=== PATIENT | female | born 1940 | race Caucasian/White ===

== ENCOUNTER → 2019-11-04 10:21 | Outpatient (CLI) | payer OTHER, MEDICARE, SELFPAY ==
--- NOTE | ~2019-11-04 | MM_ITS ---
EXAMINATION: MM screening jones BI w catie HISTORY: Screening mammogram TECHNIQUE: Craniocaudal and mediolateral oblique 3-D tomosynthesis images were obtained and synthetic 2-D images were generated. CAD analysis was submitted and interpreted. COMPARISON: 02/05/2018, 12/05/2016, 10/05/2015 bilateral digital screening mammogram examination BREAST PARENCHYMAL COMPOSITION: The breasts are heterogeneously dense, which may obscure small masses . FINDINGS: Scattered bilateral benign calcifications. There is no evidence of suspicious mass, calcifi cation, or architectural distortion to suggest malignancy in either breast. There has been no suspici ous interval change. IMPRESSION: 1. No mammographic evidence of malignancy. 2. Recommend routine screening mammography in one year. BI-RADS Category 2: Benign finding(s). Reviewed, dictated and finalized at location D.
--- NOTE | ~2019-11-04 | DEXA_ITS ---
Bone Density Report Name: Nydia Goldman Age: 79 Sex: Female Ethnicity: White Date of : 1940 Indication: postmenopausal; screening for osteoporosis; height loss; hysterectomy; Referring Provider: ELIZABETHCRISTOBAL Study: Bone densitometry was performed. Exam Date: November 04, 2019 Accession number: [id number] Bone Density: Region BMD T-score Z-score Classification AP Spine (L1-L4) 1.117 0.6 3.2 Normal Femoral Neck (Left) 0.944 0.9 3.1 Normal Total Hip (Left) 1.045 0.8 2.8 Normal Femoral Neck (Right) 0.905 0.5 2.7 Normal Total Hip (Right) 1.077 1.1 3.1 Normal Total Hip Mean 1.061 1.0 3.0 Normal World Health Organization criteria for BMD impression classify patients as: Normal (T-score at or above -1.0), Osteopenia (T-score between -1.0 and -2.5), or Osteoporosis (T-score at or below -2.5). 10-year Fracture Risk: FRAX not reported because: All T-scores for Spine Total, Hip Total, Femoral Neck at or above -1.0 Previous Exams: Region Exam Age BMD T-score BMD Change BMD Change Date g/cm2 vs Baseline vs Previous AP Spine(L1-L4) 11/04/2019 79 1.117 0.6 -0.016 -0.068* 06/17/2014 73 1.185 1.3 0.052* 0.052* 12/26/2005 65 1.133 0.8 Total Hip(Left) 11/04/2019 79 1.045 0.8 -0.165* -0.102* 06/17/2014 73 1.147 1.7 -0.063* -0.063* 12/26/2005 65 1.210 2.2 Total Hip(Right) 11/04/2019 79 1.077 1.1 -0.147* -0.104* 06/17/2014 73 1.182 2.0 -0.043* -0.043* 12/26/2005 65 1.224 2.3 *Denotes significance at 95% confidence level, LSC for AP Spine = 0.022 g/cm2, LSC for Total Hip = 0.027 g/cm2 Clinical Information Provided by Patient: Has used the following medications: Vitamin D Has the following medical conditions: Hysterectomy Patient maximum height was 65.5 Menopause Age: 43 No regular weight bearing exercise Drinks caffeinated beverages Onset of menses at age 12 Number of children 2 Impression: The patient has normal bone mass. The BMD for the AP Spine(L1-L4) decreased, changing by -0.068 since the last DXA exam. The BMD for the Total Hip(Left) decreased, changing by -0.102 since the last DXA exam. The BMD for the Total Hip(Right) decreased, changing by -0.104 since the last DXA exam. Discussion: LOW RISK OF FRACTURE; BONE DENSITY IS WELL ABOVE THE MINIMUM DESIRABLE LEVEL AND ABOVE AVERAGE FOR AGE AN
== END ==
PROVIDERS: PCP Physician Assistant; Visit Provider Physician Assistant
DX: Z12.31 Encounter for screening mammogram for malignant neoplasm of breast (principal); Z78.0 Asymptomatic menopausal state
CPT/HCPCS: 77063; 77067; 77080

== ENCOUNTER → 2020-11-09 10:26 | Outpatient (CLI) | payer OTHER, MEDICARE, SELFPAY ==
--- NOTE | ~2020-11-09 | MM_ITS ---
EXAMINATION: MM screening jones BI w catie HISTORY: Screening TECHNIQUE: Craniocaudal and mediolateral oblique 3-D tomosynthesis images were obtained and synthetic 2-D images were generated. CAD analysis was submitted and interpreted. COMPARISON: Comparison to multiple prior studies sequentially, with oldest reviewed study dated 08/2014. BREAST PARENCHYMAL COMPOSITION: The breasts are heterogenously dense, which may obscure small masses FINDINGS: There is no evidence of suspicious mass, calcification, or architectural distortion to sugg est malignancy in either breast. There has been no suspicious interval change. IMPRESSION: 1. No mammographic evidence of malignancy. 2. Recommend routine screening mammography in one year. BI-RADS Category 1: Negative Reviewed, dictated and finalized at location A.
== END ==
PROVIDERS: PCP Physician Assistant; Visit Provider Physician Assistant
DX: Z12.31 Encounter for screening mammogram for malignant neoplasm of breast (principal)
CPT/HCPCS: 77063; 77067

== ENCOUNTER → 2021-04-26 14:10 | Outpatient (CLI) | payer OTHER, MEDICARE, SELFPAY ==
--- NOTE | ~2021-04-26 | CT_ITS ---
EXAMINATION: CT abdomen pelvis wo/w con DATE: 04/26/2021 15:07 INDICATION: Gross hematuria TECHNIQUE: Computed tomography (CT) of the abdomen and pelvis was performed without and subsequently with 130 CC Omnipaque 350 intravenous contrast. Automated exposure control and iterative reconstructi on technique were employed. Exam dose: 2034.14 mGy-cm total exam DLP. COMPARISON: 06/22/2016 CT abdomen pelvis FINDINGS: The lung bases are clear of consolidation. Normal heart size. No pericardial or pleural eff usion. Small sliding hiatal hernia. Mild scarring and volume loss of the right kidney. No right renal mass lesion. 11 mm and 20 mm left renal cyst. 6 mm inferior tip left renal probable hy perdense cyst. No intraluminal filling defect of the renal collecting systems or ureters or urinary bladder is evide nt. No hydroureteronephrosis. Moderate diffuse thickening of the urinary bladder wall; the urinary bl adder appears unremarkable. Status post hysterectomy. Soft tissue prominence at the anorectal area, stable in appearance compared to 06/22/2016; recommend c linical correlation to exclude anorectal mass lesion. Normal appendix. Normal caliber of the abdominal aorta. No intraperitoneal or retroperitoneal or pelvic mass lesion or adenopathy or ascites is noted otherwise. No suspicious osteolytic or osteoblastic lesions. Degenerative changes of the thoracic and lumbar spine, including grade 1 anterolisthesis and moderate ly prominent degenerative disc disease L4-5, moderate degenerative disc disease at the remainder of t he lumbar spine. Diffuse idiopathic skeletal hyperostosis of the thoracic spine. 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 Reviewed, dictated and finalized at location A.
--- NOTE | ~2021-04-26 | XR_ITS ---
XR abdomen/kub 1V 04/26/2021 15:07 Indication: Gross hematuria Procedure: KUB Comparison: 06/28/2016 Findings: Bowel gas pattern is nonobstructive. Moderate colonic fecal loading. No renal stones are id entified. Lung bases unremarkable. Severe lumbar spondylosis with levoscoliosis. 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 Impression: 1: No acute abnormality. Reviewed, dictated and finalized at location B. Impression: 1: No acute abnormality.
[2021-04-26 14:38] LABS: Estimated Glomerular Filt Rate > 60
== END ==
PROVIDERS: PCP Internal Medicine; Visit Provider Nurse Practitioner Adult Health
DX: R31.0 Gross hematuria (principal); N28.1 Cyst of kidney, acquired; K44.9 Diaphragmatic hernia without obstruction or gangrene
CPT/HCPCS: 74018; 74178; Q9967

== ENCOUNTER → 2021-11-15 10:11 | Outpatient (CLI) | payer OTHER, MEDICARE, SELFPAY ==
--- NOTE | ~2021-11-15 | MM_ITS ---
EXAMINATION: MM screening jones BI w catie HISTORY: Screening mammogram TECHNIQUE: Craniocaudal and mediolateral oblique 3-D tomosynthesis images were obtained and synthetic 2-D images were generated. CAD analysis was submitted and interpreted. COMPARISON: 11/09/2020, 11/04/2019, 02/05/2018 BREAST PARENCHYMAL COMPOSITION: The breasts are heterogeneously dense, which may obscure small masses . FINDINGS: Scattered benign-appearing calcifications are present. No suspicious mass, calcification, o r architectural distortion are identified in either breast to suggest malignancy. There has been no s uspicious interval change. IMPRESSION: 1. No mammographic evidence of malignancy. 2. Recommend routine screening mammography in one year. BI-RADS Category 2: Benign finding(s). Reviewed, dictated and finalized at location A.
== END ==
PROVIDERS: PCP Physician Assistant; Visit Provider Physician Assistant
DX: Z12.31 Encounter for screening mammogram for malignant neoplasm of breast (principal)
CPT/HCPCS: 77063; 77067

== ENCOUNTER 2022-03-10 18:26 | Emergency (ER) | payer OTHER, MEDICARE, SELFPAY ==
[2022-03-10 18:31] VITALS: BP 198/85; PULSE 74; RESP 20; TEMP 36.3; O2SAT 99
[2022-03-10 19:28] LABS: Add Urine Microscopic? YES; Appearance Urine Turbid (Clear); Bilirubin Urine Negative (Negative); Blood Urine 3+ (Negative); Color Urine Red (Yellow); Glucose Urine UA Negative (Negative); Ketones Urine Negative (Negative); Leukocyte Esterase Ur 1+ LEU/UL (Negative); Nitrate Urine Positive (Negative); Protein Urine 2+ mg/dL (Negative); Specific Grav Ur 1.015 (1.001-1.035); Urobilinogen Urine 0.2 mg/dL (<2.0)
[2022-03-10 19:31] LABS: RBC Urine >75 /hpf (0-2)
[2022-03-10 19:32] LABS: Squamous Epithelial Cell Urine Few /hpf (Few)
[2022-03-10 19:33] LABS: Bacteria Urine 2+ /hpf
--- NOTE | 2022-03-10 19:38 | ED.GENADULT ---
HPI - General Adult General Chief complaint: Urogenital-Female Stated complaint: UTI MEDS NOT WORKING Time Seen by Provider: 03/10/22 19:08 History of Present Illness HPI narrative: This is an 81-year-old female with neurogenic bladder presenting to ED with UTI symptoms. The patient was diagnosed with the UTI on February 17. She was prescribed Levaquin but was not comfortable taking the medication due to side effects. She was then prescribed Macrobid which she just finished her course today. However the patient self caths due to a neurogenic bladder. She has noticed that she has had bright red blood and passage of clots today. She was able to void on her own and does not have any abdominal pain or pressure at this time. She denies systemic signs of infection such as fever chills nausea vomiting or diarrhea. The patient's urologist is Dr. Nugent. Patient takes Keflex prophylactically. Related Data Allergies Allergy/AdvReac Type Severity Reaction Status Date / Time hydrocodone Allergy Mild DISORIENTAT Verified 03/10/22 19:03 ION diazepam Allergy Unknown Unknown Verified 03/10/22 19:03 Review of Systems Review of Systems: CONSTITUTIONAL: Denies night sweats. EYES: No eye pain ENT: Denies rhinorrhea CARDIOVASCULAR: Denies palpitations RESPIRATORY: Denies hemoptysis GASTROINTESTINAL: Denies hematemesis GENITOURINARY: Denies hematuria. SKIN: Denies rash MUSCULOSKELETAL: Denies myalgia. NEUROLOGIC: Denies weakness. PSYCHIATRIC: Denies delusions [facility] Past Medical History Medical History (Updated 03/10/22 @ 19:55 by Miguel Murphy MD) Hx of recurrent urinary tract infection Hypertension Neurogenic bladder Surgical History Surgical History (Updated 03/10/22 @ 19:51 by Miguel Murphy MD) H/O hysterectomy for benign disease Family History Family History (Updated 10/08/13 @ 07:13 by DOCTOR UNKNOWN) Other Cerebrovascular accident Family history of alcoholism Family history of arthritis Family history of mental disorder Hypertension Social History Social History Smoking status: Former smoker Smoking end date: 02/12/1964 Alcohol intake: current Exam Narrative: APPEARANCE: No apparent distress. Head: atraumatic. EYES: EOMI, NOSE: Atraumatic NECK: Trachea midline RESPIRATORY: No increased rate of breathing CARDIOVASCULAR: RRR, ABDOMINAL: Non-distended, no tenderness in the suprapubic region, no CVA tenderness, no guarding rebound MUSCULOSKELETAl: No obvious deformities NEURO: Alert. Moving 4/4 extremities SKIN:: Warm, dry. Normal color PSYCHIATRIC: Normal affect Course Vital Signs Vital signs: Vital Signs Temperature 97.4 F L 03/10/22 18:31 Pulse Rate 74 03/10/22 18:31 Respiratory Rate 20 03/10/22 18:31 Blood Pressure 198/85 H 03/10/22 18:31 Pulse Oximetry 99 03/10/22 18:31 Oxygen Delivery Room Air 03/10/22 18:31 Temperature 97.4 F L 03/10/22 18:31 Pulse Rate 74 03/10/22 18:31 Respiratory Rate 20 03/10/22 18:31 Blood Pressure 198/85 H 03/10/22 18:31 Pulse Oximetry 99 03/10/22 18:31 Oxygen Delivery Room Air 03/10/22 18:31 Medical Decision Making MDM Narrative Medical decision making narrative: -Presentation: 81-year-old female with a neurogenic bladder presenting to the ED with passage of abbie blood and clots during catheterization. -DDX includes but is not limited to: UTI, multi-drug resistant organism UTI, bladder obstruction due to clots -Co-morbidities complicating care: neurogenic bladder, hypertension -External Chart Review: none -Hx from independent Sources: daughter -Discussion of Management/Consultants: none -Independent interpretation of studies: urinalysis showed a red appearance, +2 protein, +3 blood, over 75 red blood cells per high-power field, positive nitrites and 10-15 white blood cells per high-power field. Dx tests considered but not ordered: Basic lab work - patient is afebril
[2022-03-10 19:51] VITALS: PULSE 66; RESP 18; O2SAT 100
[2022-03-10 20:57] VITALS: PULSE 65; RESP 18; O2SAT 100
[2022-03-10 20:58] VITALS: BP 190/80
== END 2022-03-10 21:00 | disposition home or self-care (01) ==
PROVIDERS: Emergency Medicine; Emergency Provider Emergency Medicine; PCP Physician Assistant
DX: N39.0 Urinary tract infection, site not specified (principal); I10 Essential (primary) hypertension; N31.9 Neuromuscular dysfunction of bladder, unspecified; Z90.710 Acquired absence of both cervix and uterus; Z87.891 Personal history of nicotine dependence
CPT/HCPCS: 81001; 87077; 87086; 87186; 96365; 99284; J0696

== ENCOUNTER 2022-03-22 10:39 | Outpatient (CLI) | payer OTHER, MEDICARE, SELFPAY ==
--- NOTE | ~2022-03-22 | XR_ITS ---
Supine and upright views of the abdomen Clinical history: Hematuria COMPARISON: 04/26/2021 Findings: Bowel gas pattern is nonspecific. No evidence for obstruction or free air. No abnormal mass lesion or calcification is seen. Stable degenerative change of the lumbar spine and bilateral hips. Impression: No renal stone identified. Reviewed, dictated and finalized at [facility]. [employer] MA[employer]GER Impression: No renal stone identified.
--- NOTE | ~2022-03-22 | CT_ITS ---
EXAMINATION: CT abdomen pelvis wo/w con DATE: 03/22/2022 12:21 INDICATION: Gross hematuria TECHNIQUE: Computed tomography (CT) of the abdomen and pelvis was performed without intravenous contr ast. CT of the abdomen and pelvis was then performed with a total of 130 mL Omnipaque 350 intravenous contrast using a double-bolus technique for simultaneous opacification of the renal parenchyma and r enal collecting system. The dose-length product (DLP) was 2228.91 mGy-cm. Automated exposure control and iterative reconstruction technique were employed. COMPARISON: 04/26/2021 FINDINGS: Minimal dependent atelectasis is present in the lung bases. The heart size is normal. The l iver, spleen, pancreas, gallbladder, and adrenal glands are normal. Cysts of the kidneys measure up t o 2.3 cm on the left. No stones are identified in the kidneys, ureters, or bladder. No hydronephrosis or hydroureter. There appears to be a 1.8 x 1.7 cm soft tissue mass of the left bladder wall near th e apex. No suspicious renal lesion is identified. No pathologically enlarged abdominal or pelvic lymp h nodes are identified. No free intraperitoneal gas or evidence of bowel obstruction. A moderate volu me of colonic stool is present. There is moderate lumbar spondylosis. IMPRESSION: 1. Apparent soft tissue mass of the left bladder wall. Direct visualization is recommended. 2. Constipation. Reviewed, dictated and finalized at location L. [employer]MER
[2022-03-22 12:04] LABS: Estimated Glomerular Filt Rate > 60
== END 2022-03-22 10:40 | disposition home or self-care (01) ==
PROVIDERS: PCP Physician Assistant; Visit Provider Nurse Practitioner Adult Health
DX: R31.0 Gross hematuria (principal); K59.00 Constipation, unspecified
CPT/HCPCS: 74018; 74178; Q9967

== ENCOUNTER 2022-05-04 02:29 | Day surgery (SDC) | payer OTHER, MEDICARE, SELFPAY ==
--- NOTE | 2022-05-02 15:52 | PC.NURSE ---
Report to the Outpatient Waiting Room, entrance under the green pavilion located off [facility], at time 1130 on date _05/04/22 . Planned Procedure Time: __1330 . Time changes happen often and if your time is changed the preop area will call you the afternoon before. - You and your visitor will be asked to self-screen and do not enter if you have any COVID symptoms. - Only one visitor is requested with a max of two and NO children visitors are allowed at this time. - The patient visitor may be requested to leave or wait in car when not with patient due to distancing restrictions. - A mask is optional within the hospital at this time. Patients may have clear liquids (water, carbonated beverages, clear teas, apple juice) until 3 hours prior to surgery with a maximum of 20 ounces. - No food from midnight until time of surgery - Infants may have breast milk until 4 hours before surgery, infant formula 6 hours prior to surgery. - Children will be allowed to drink immediately following surgery. If applicable, please bring a bottle or sippy cup to assist with drinking. Juice, water, soda, and popsicles are readily available. For infants on formula, please bring formula the day of surgery. Pacifiers are allowed. Take the following medications with a SIP of water the morning of surgery: ____AMLODIPINE,CARVEDILOL,CIPRO DO NOT STOP ANY OF YOUR OTHER PRESCRIPTION MEDICATIONS PRIOR TO SURGERY ?EXCEPT THE FOLLOWING Medications to discontinue per physician ALL VITAMINS/SUPPLEMENTS 3 DAYS PRE OP. LAST DOSE 05/02 Please no make-up, nail lao, hairspray, perfume, deodorant, or body powder the day of surgery. No jewelry (including any body piercings) or valuables the day of surgery, leave them at home. Please take a shower or bath the night before, or the morning of, surgery with an antibacterial soap. Wear comfortable, loose fitting clothing. Children are encouraged to wear pajamas. - Jewelry must be removed prior to entering the operating room. Rings and piercings that are not removed may be cut off. - The hospital will not accept responsibility for valuables. - Please leave all valuables, including medications, at home the day of surgery. If you are going home after surgery, a licensed [employer] hazmat company driver must drive you home. - NO public transportation without another adult if you receive anesthesia. - We recommend that an adult stay with you for 24 hours following discharge. - We also recommend that you do not drive, make important decision, drink alcoholic beverages, or take any drugs that were not prescribed by your health care provider for at least 24 hours after your discharge time. Follow any additional instructions given to you from your surgeon. If you or anyone in your household have experienced Covid symptoms in the past week, please notify your surgeon or the nurse liaison at the phone number below for possible testing. Telephone instructions given to __PATIENT and asked if any additional questions and then verbalized understanding. Patient advised to call surgeon office or pre surgery nurse liaison [phone] if any additional questions.
[2022-05-02 16:02] VITALS: BMI 32.8
[2022-05-04] VITALS (9 sets, daily range): BP systolic 138–172; BP diastolic 56–79; PULSE 65–78; RESP 10–18; TEMP 36.3–36.6; O2SAT 98–100
--- NOTE | 2022-05-04 06:34 | WPDHPUPDATE1 ---
History and Physical Update Update Date/Time: 05/04/22 06:34 History and Physical has been reviewed, including an updated exam of the patient. There are NO changes in the patient's condition. Risks, benefits, and alternatives have been discussed and questions answered. Patient agrees to proceed with procedure.
--- NOTE | 2022-05-04 10:11 | ECG_ITS ---
Measurements Intervals [place] Rate: 67 P: 89 DE: 183 QRS: 3 QRSD: 93 T: 55 QT: 395 QTc: 419 Interpretive Statements SINUS RHYTHM WITH SINUS ARRHYTHMIA NONSPECIFIC T-WAVE ABNORMALITY- INF/HIGH LAT LEADS BASELINE ARTIFACT- I, II, AVR, V1, V6 BORDERLINE ECG NO PREVIOUS ECG AVAILABLE FOR COMPARISON Electronically Signed On 05-04-2022 12:43:06 CDT by Curtis Burton D.O.
[2022-05-04] MEDS: LACTATED RINGERS 1,000 ML 30 ML IV CONT (12:00)
--- NOTE | 2022-05-04 14:15 | P.PNAN_ITS ---
Anes - Initial Pre Proc Eval Procedure: Operation Date: 05/04/22 13:30 Proposed Procedures p Trans Urethral Resection Bladder Tumor Gemcitabine Instillation - Miles Nugent MD Date/Time: 05/04/22 14:15 Surgeon: Miles Nugent MD Pre Op Diagnosis: bladder cancer Patient Data Age: 81 Gender: F Height: 1.64 m Weight: 89 kg Last Vital Signs Temp 36.6 C 05/04/22 12:00 Pulse 65 05/04/22 12:00 Resp 18 05/04/22 12:00 BP 140/78 05/04/22 12:00 Pulse Ox 98 05/04/22 12:00 O2 Del Method Room Air 05/04/22 12:00 Allergies Allergy/AdvReac Type Severity Reaction Status Date / Time hydrocodone Allergy Mild DISORIENTAT Verified 05/02/22 15:39 ION diazepam Allergy Unknown disorientat Verified 05/02/22 15:40 ion Home Medications Medication Instructions Recorded Confirmed Type alprazolam 0.5 mg tablet 0.5 mg PO PRN PRN Anxiety 05/02/22 05/02/22 History amlodipine 2.5 mg tablet 2.5 mg PO DAILY 05/02/22 05/04/22 History carvedilol 3.125 mg tablet 3.125 mg PO BID 05/02/22 05/04/22 History cholecalciferol (vitamin D3) 100 100 mcg PO DAILY 05/02/22 05/02/22 History mcg (4,000 unit) tablet ciprofloxacin HCl 500 mg tablet 500 mg PO BID 05/02/22 05/04/22 History lisinopril 40 mg tablet 40 mg PO DAILY 05/02/22 05/04/22 History omega-3 fatty acids 1,000 mg PO DAILY 05/02/22 05/04/22 History Patient hx anesthesia problems: post op nausea/vomiting Family hx anesthesia problems: none Results Review: All pre-operative results and documents have been reviewed as part of the pre- operative evaluation. [facility] Past Medical History Medical History Hx of recurrent urinary tract infection Hypertension Neurogenic bladder Surgical History Surgical History H/O hysterectomy for benign disease Family History Family History Other Cerebrovascular accident Family history of alcoholism Family history of arthritis Family history of mental disorder Hypertension Social History Social History Smoking status: Never smoker Smoking end date: 02/12/1964 Alcohol intake: current Living arrangements: with family Spiritual care concerns: No Anes - Eval Final PreProcedure Day of Procedure 05/04/22 14:15 Patient weight: obese Heart: regular rate and rhythm Lungs: clear to auscultation Airway: Mallampati scale class II Neurological: alert and oriented Last oral intake: >/= 8 hours ASA classification: III Emergent: no Anesthetic plan: proceed Anesthesia type and monitoring: general LMA and standard monitoring Results Review: All pre-operative results and documents have been reviewed as part of the pre- operative evaluation. Informed Consent: The patient's anesthetic plan and its attendant risks and benefits were discussed with the patient/family/POA. Questions were solicited and answers provided to the satisfaction of the patient/family/POA.
[2022-05-04] MEDS: ceFAZolin 2 GM/D5W 50 ML 2 GM/50 ML BAG IVPB (14:18)
[2022-05-04] MEDS: LIDOCAINE HCL 2% GEL UROJET 10 ML PKG MUCOUS MEM (14:31)
[2022-05-04] MEDS: SODIUM CHLORIDE 0.9% IV 23.7 ML, GEMCITABINE HCL 1,000 MG BLADDER ×2 (14:55)
--- NOTE | 2022-05-04 14:57 | W.PM.PROC2 ---
Procedure Note - Detailed Date of Procedure 05/04/22 Pre-op Diagnosis Gross hematuria, bladder neoplasm Post-op Diagnosis Same Procedure Performed 1. Cystoscopy with clot evacuation 2. Transurethral resection bladder tumor ( medium, 3-4 cm) 3. Bladder biopsies Surgeon Miles Nugent MD Anesthesia General Description of Procedure Patient is brought to the operative suite where she has prepped draped in routine sterile fashion while in dorsal lithotomy position after the uneventful induction of a general LMA anesthetic. A 24 F resectoscope was placed in her bladder. She has a fair amount of dependent clot which was evacuated using a Emelyn syringe. Careful inspection then revealed some interesting findings. First she has a somewhat unusual appearing, partially sessile and partially papillary neoplasm that measures 3-4 cm in the left anterior lateral bladder wall near the dome. She has a 2nd very small satellite lesion that measures less than a cm just lateral to that. Additionally, she has a couple areas of nonspecific hyperemia in the more posterior bladder wall. These are biopsied separately. Lastly she has a diffuse area of keratin like formation in the dome, likely resulting from chronic intermittent catheterization with irritation from the catheter tip. I resected neoplasm in its entirety cauterized the base and periphery with the rollerball. I obtained biopsies from the areas of hyperemia likewise cauterized those areas. Lastly I obtained a biopsy from the dome where there appeared to be keratin formation. There was no bleeding at the termination in no question as to the integrity of the bladder wall. I placed an 18 F Rodriguez catheter to drainage Drains Yes Packing No Pathology Yes Complications No immediate complications Condition Stable Disposition PACU
== END 2022-05-04 17:05 | disposition home or self-care (01) ==
PROVIDERS: PCP Physician Assistant; Visit Provider Urology
PROC: 0TBB8ZZ Excision of Bladder, Via Natural or Artificial Opening Endoscopic (ICD-10-PCS; CPT 52235; principal; 2022-05-04 13:30)
DX: C67.8 Malignant neoplasm of overlapping sites of bladder (principal); N30.90 Cystitis, unspecified without hematuria; N31.9 Neuromuscular dysfunction of bladder, unspecified; I10 Essential (primary) hypertension; E66.9 Obesity, unspecified; Z68.33 Body mass index [BMI] 33.0-33.9, adult
CPT/HCPCS: 52235; 52204; 51720; 88305; 93005; J0690; J1100; J2405; J2704; J3010; J7120; J9201

== ENCOUNTER 2022-05-07 18:23 | Inpatient (IN) | payer OTHER, MEDICARE, SELFPAY ==
--- NOTE | ~2022-05-07 | US_ITS ---
US pelvic limited 05/08/2022 16:25 Indication: Anemia. Status post clot evacuation from the bladder Procedure: High-resolution ultrasound of the pelvis using transabdominal technique Comparison: No prior studies for comparison. Findings: Bladder wall is within normal limits without thickening or focal mass. No abnormal intralum inal content. No extraluminal masses or fluid collections. Bilateral ureteral jets are identified. Impression: 1: No significant abnormality of the bladder. Reviewed, dictated and finalized at location A. Impression: 1: No significant abnormality of the bladder.
--- NOTE | ~2022-05-07 | XR_ITS ---
Supine and upright views of the abdomen Clinical history: Fecal impaction COMPARISON: 03/22/2022 Findings: There is prominent, extensive air distention of the large bowel. Large amount of stool prob ably present at the rectum. Small bowel is nondistended. No abnormal mass lesion or calcification is seen. Osseous structures are intact. Impression: Probable fecal impaction with associated prominent air distention of much of the large bowel. Reviewed, dictated and finalized at location . Impression: Probable fecal impaction with associated prominent air distention of much of th e large bowel.
--- NOTE | ~2022-05-07 | XR_ITS ---
Supine views of the abdomen Clinical history: Obstruction COMPARISON: 05/10/2022 Findings: Diffuse, prominent air distention of the large bowel is similar to prior exam. No abnormal mass lesion or calcification is seen. Osseous structures are unchanged. Impression: Stable diffuse, prominent air distention of large bowel. Reviewed, dictated and finalized at [facility]. Impression: Stable diffuse, prominent air distention of large bowel.
--- NOTE | ~2022-05-07 | CT_ITS ---
EXAMINATION: CT abdomen pelvis wo con DATE: 05/09/2022 14:36 INDICATION: Abdominal pain. Nausea . Anemia. TECHNIQUE: Computed tomography (CT) of the abdomen and pelvis was performed without intravenous contr ast. Automated exposure control and iterative reconstruction technique were employed. The dose-length product was 1130.34 mGy-cm. COMPARISON: CT abdomen and pelvis 03/22/2022 FINDINGS: The visualized portions of the lung bases demonstrate mild atelectasis. No pleural effusion . The heart size is normal. No pericardial effusion. There is a small sliding hiatal hernia. There is a 7 mm cyst in the liver. The gallbladder, spleen, pancreas, adrenal glands, and right kidney are no rmal. There are cysts in left kidney measuring up to 2.3 cm. The rectosigmoid is distended and stool- filled and demonstrates wall thickening and surrounding fat stranding, consistent with stercoral coli tis. The more proximal colon is distended and predominantly gas-filled. There are no pathologically e nlarged lymph nodes. There is a small volume of ascites. There is prominent fat in the inguinal canal s that may be hernias. There is moderate lumbar spondylosis. IMPRESSION: 1. Stercoral colitis. 2. Small volume of ascites. Reviewed, dictated and finalized at location A.
[2022-05-07 19:38] VITALS: BP 167/80; PULSE 89; RESP 16; TEMP 36.6; O2SAT 98
--- NOTE | 2022-05-07 21:53 | ECG_ITS ---
Measurements Intervals [place] Rate: 73 P: 52 TN: 178 QRS: 13 QRSD: 93 T: 58 QT: 372 QTc: 412 Interpretive Statements SINUS RHYTHM WITH SINUS ARRHYTHMIA CANNOT RULE OUT SEPTAL INFARCT, AGE INDETERMINATE BORDERLINE ST-T WAVE ABNORMALITY- HIGH LATERAL LEADS BASELINE ARTIFACT- I, III, V2, V5-V6 ABNORMAL ECG COMPARED TO ECG 05/04/2022 12:00:17 MYOCARDIAL INFARCT FINDING NOW PRESENT Electronically Signed On 05-08-2022 7:53:48 CDT by Curtis Burton D.O.
[2022-05-07 22:23] VITALS: BP 194/83; PULSE 74; RESP 16; TEMP 37.1; O2SAT 98
[2022-05-07 22:27] LABS: Basophils Percent Auto 0.5 % (0.2-1.2); Eosinophils Absolute Auto 0.2 K/mm3 (0-0.3); Eosinophils Percent Auto 2.6 % (0-4.4); Hematocrit 23.5 % (37.0-47.0); Hemoglobin 7.6 g/dL (12.0-15.0); Immature Granulocyte Absolute 0.03 K/mm3 (0.00-0.031); Immature Granulocyte Percent A 0.5 % (0-0.5); Lymphocytes Absolute Auto 1.54 K/mm3 (0.9-3.2); Lymphocytes Percent Auto 26.9 % (18.3-44.2); Mean Corpuscular HGB Conc 32.3 g/dl (32-36); Mean Corpuscular Hemoglobin 27.5 pg (26-34); Mean Corpuscular Volume 85.1 fl (80-100); Mean Platelet Volume 8.8 fl (7.4-10.4); Monocytes Absolute Auto 0.3 K/mm3 (0.1-0.6); Monocytes Percent Auto 4.5 % (2.6-8.5); Neutrophils Absolute Auto 3.7 K/mm3 (1.3-6.7); Platelet Count Result 212 k/mm3 (150-375); Red Blood Count 2.76 M/mm3 (4.2-5.4); Red Cell Distribution Width 14.4 % (11.5-14.5); White Blood Count 5.7 K/mm3 (4.5-10.0)
[2022-05-07 22:43] LABS: Potassium 3.7 mmol/L (3.4-5.0)
[2022-05-07 22:48] LABS: Alanine Aminotransferase 17 U/L (6-35); Albumin Level 3.8 g/dL (3.5-5.1); Alkaline Phosphatase 70 U/L (38-126); Anion Gap 6 mmol/L (8-16); Aspartate Amino Transferase 27 U/L (14-36); Bilirubin,Total 0.4 mg/dL (0.2-1.3); Blood Urea Nitrogen 14 mg/dL (7-17); Calcium 8.7 mg/dL (8.4-10.2); Carbon Dioxide 29 mmol/L (22-30); Chloride 101 mmol/L (98-107); Estimated CRCL calculation 81 ml/min; Estimated Glomerular Filt Rate > 60; Glucose 108 mg/dL (65-110); Sodium 136 mmol/L (137-145)
[2022-05-07 23:21] VITALS: BP 169/82; BP 173/82; BP 181/75; PULSE 74; PULSE 76; PULSE 85
[2022-05-07 23:26] VITALS: BP 169/82; PULSE 85; RESP 18; O2SAT 98
--- NOTE | 2022-05-07 23:43 | PM.IMHP ---
H&P: HPI History of Present Illness Date/Time: 05/07/22 23:43 Chief Complaint: Dizziness Narrative: This is an 81-year-old female with past medical history significant for hypertension, neurogenic bladder self catheterizes at home, status postop procedure for growth in the urinary bladder, hematuria. Patient comes to the emergency room due to episode of dizziness, lightheadedness. Patient found to have a hemoglobin of 6. Been placed in observation for blood transfusion. Patient denies any fevers, rigors, chills, pain or burning with urination, no cough, no sputum production, no abdominal pain, no nausea no vomiting no diarrhea. Review of Systems Review of Systems: Dizziness Constitutional: Constitutional: Denies chills, Reports fatigue, Denies fever(s), Reports lethargy, Denies malaise, Denies night sweats and Denies weakness Eyes: Eyes: Denies change in vision ENT: Denies dysphagia, Reports dizziness and Denies odynophagia Cardiovascular: Cardiovascular: Denies chest pain, Denies leg edema, Reports lightheadedness and Reports dyspnea Respiratory: Respiratory: Denies chest congestion, Denies cough, Denies pain on inspiration and Reports dyspnea on exertion Gastrointestinal: Gastrointestinal: Denies abdominal pain, Denies melena, Denies hematochezia, Denies coffee ground emesis, Denies dyspepsia, Denies heartburn, Denies diarrhea, Denies nausea and Denies vomiting Genitourinary: Genitourinary: Denies hematuria, Denies dysuria, Denies flank pain and Reports other (self catheterization) Musculoskeletal: Musculoskeletal: Denies back pain, Denies myalgias and Denies joint swelling Integumentary/Breasts: Skin/Breast: Denies rash Neurologic: Denies focal weakness and Denies Sensory deficit (Neuro) Psychiatric: Psychiatric: Reports no additional psychiatric complaints and Reports as per HPI Endocrine: Endocrine: Denies cold intolerance, Denies flushing, Denies heat intolerance, Denies polyphagia, Denies polydipsia and Denies palpitations Hematologic/Lymphatic: Hematologic/Lymphatic: Reports no additional hematologic/lymphatic complaints and Reports as per HPI Allergic/Immunologic: Allergic/Immunologic: Reports no additional allergic/immunologic complaints and Reports as per HPI PMFSH Past Medical History Medical History Hx of recurrent urinary tract infection Hypertension Neurogenic bladder Surgical History Surgical History H/O hysterectomy for benign disease Family History Family History Other Cerebrovascular accident Family history of alcoholism Family history of arthritis Family history of mental disorder Hypertension Social History Social History Smoking status: Former smoker Smoking end date: 02/12/1964 Alcohol intake: never Substance use: never Lack of Transportation: No Lack of Food: Never True Current Housing: I Have Housing Concerned About Future Housing: No Difficulty Paying Gas/Electric Bills: No Difficulty Paying for Meds: No Currently Unemployed: No Education: High School Diploma/GED Difficulty w/ Childcare or Family Care: No Living arrangements: with family Gender identity (if verbalized by the patient): Female Spiritual care concerns: No Meds Home Medications and Allergies Home Medications Medication Instructions Recorded Confirmed Type alprazolam 0.5 mg tablet 0.5 mg PO PRN PRN Anxiety 05/02/22 05/08/22 History amlodipine 2.5 mg tablet 2.5 mg PO DAILY 05/02/22 05/08/22 History carvedilol 3.125 mg tablet 3.125 mg PO BID 05/02/22 05/08/22 History cholecalciferol (vitamin D3) 100 100 mcg PO DAILY 05/02/22 05/08/22 History mcg (4,000 unit) tablet lisinopril 40 mg tablet 40 mg PO DAILY 05/02/22 05/08/22 Hi
--- NOTE | 2022-05-07 23:48 | ED.GENADULT ---
HPI - General Adult General Chief complaint: Dizziness Stated complaint: lightheaded Time Seen by Provider: 05/07/22 23:27 History of Present Illness HPI narrative: Patient 81-year-old female who presents the emergency department with chief complaint of feeling lightheaded weak and shaky. Patient reports that she has been having hematuria and reports that she had a bladder mass removed by urology as an outpatient on Saturday. Patient states that the hematuria has stopped but does report that she started getting lightheaded and feeling very weak and rundown. The patient reports that throughout this no one has checked a hemoglobin and she is unsure if she has any prior history of anemia. Related Data Home Medications Medication Instructions Recorded Confirmed alprazolam 0.5 mg tablet 0.5 mg PO PRN PRN Anxiety 05/02/22 05/02/22 amlodipine 2.5 mg tablet 2.5 mg PO DAILY 05/02/22 05/04/22 carvedilol 3.125 mg tablet 3.125 mg PO BID 05/02/22 05/04/22 cholecalciferol (vitamin D3) 100 100 mcg PO DAILY 05/02/22 05/02/22 mcg (4,000 unit) tablet ciprofloxacin HCl 500 mg tablet 500 mg PO BID 05/02/22 05/04/22 lisinopril 40 mg tablet 40 mg PO DAILY 05/02/22 05/04/22 omega-3 fatty acids 1,000 mg PO DAILY 05/02/22 05/04/22 Allergies Allergy/AdvReac Type Severity Reaction Status Date / Time hydrocodone Allergy Mild DISORIENTAT Verified 05/07/22 19:42 ION diazepam Allergy Unknown disorientat Verified 05/07/22 19:42 ion Review of Systems Review of Systems: A 10 system review of systems was completed on the patient and is negative except for what is stated in the HPI. Nursing and ancillary documentation was reviewed. [facility] Past Medical History Medical History Hx of recurrent urinary tract infection Hypertension Neurogenic bladder Surgical History Surgical History H/O hysterectomy for benign disease Family History Family History Other Cerebrovascular accident Family history of alcoholism Family history of arthritis Family history of mental disorder Hypertension Social History Social History Smoking status: Never smoker Smoking end date: 02/12/1964 Alcohol intake: current Living arrangements: with family Gender identity (if verbalized by the patient): Female Spiritual care concerns: No Exam Narrative: GENERAL: Well-appearing, well-nourished, and in no acute distress. HEAD: Normocephalic, atraumatic. EYES: PERRLA and EOMI. ENT: Nares clear, no rhinorrhea or epistaxis. Mucous membranes moist. NECK: Supple. CHEST: Clear to auscultation. No respiratory distress. HEART: Regular rate and rhythm. No murmur heard. Normal peripheral pulses. ABDOMEN: Soft, nontender, nondistended, normal active bowel sounds. EXTREMITIES: Normal range of motion. No edema. SKIN: Warm, dry, no rash. NEURO: No focal deficits. Alert and oriented x3. PSYCH: Normal mood and affect. Course Vital Signs Vital signs: Vital Signs Temperature 36.6 C 05/07/22 19:38 Pulse Rate 89 05/07/22 19:38 Respiratory Rate 16 05/07/22 19:38 Blood Pressure 167/80 H 05/07/22 19:38 Pulse Oximetry 98 05/07/22 19:38 Oxygen Delivery Room Air 05/07/22 19:38 Temperature 37.1 C 05/07/22 22:23 Pulse Rate 85 05/07/22 23:26 Respiratory Rate 18 05/07/22 23:26 Blood Pressure 169/82 H 05/07/22 23:26 Pulse Oximetry 98 05/07/22 23:26 Oxygen Delivery Room Air 05/07/22 19:38 Medical Decision Making [facility] Narrative Medical decision making narrative: Differential diagnosis includes acute anemia, electrolyte abnormality, UTI. Laboratory studies were obtained on the patient which showed a hemoglobin of 7.6. Patient has no prior documented H&H in the system giv
[2022-05-08] VITALS (21 sets, daily range): BP systolic 150–194; BP diastolic 60–99; PULSE 65–100; RESP 16–20; TEMP 36.4–36.9; O2SAT 93–100; BMI 33.0
[2022-05-08 00:10] LABS: Hematocrit 22.5 % (37.0-47.0); Hemoglobin 7.3 g/dL (12.0-15.0)
[2022-05-08] MEDS: SODIUM CHLORIDE 0.9% IV 1,000 ML 125 ML IV CONT ×2 (00:14→05:56)
--- NOTE | 2022-05-08 01:35 | PC.NURSE ---
Addendum entered by Kvng Burdick RN 05/08/22 01:36: Patient signed consent for blood transfusion Original Note: Patient signed consent
[2022-05-08] MEDS: SODIUM CHLORIDE 0.9% IV 250 ML 30 ML IV CONT (02:03)
[2022-05-08] MEDS: TUBING, BLOOD PLUM PUMP TUBING 1 EACH XX (02:14)
--- NOTE | 2022-05-08 02:53 | ADMGEN ---
This patient, Nydia Goldman, was admitted to Medical Room 251-01. Patient/family oriented to hospital policies and general routines including ID bracelet, bed and alarms, visiting hours, pain management, procedures, bathroom and other care routines, personal items, smoking policy, room service/diet, and visiting hours. Information on how to activate the Rapid Response Team has been discussed. Patient/Family are encouraged to report perceived risks to care and to ask questions if they do not understand what they are told or what they should do.
[2022-05-08 03:16] LABS: Appearance Urine Clear (Clear); Bacteria Urine None Seen /hpf; Bilirubin Urine Negative (Negative); Blood Urine 2+ (Negative); Color Urine Yellow (Yellow); Glucose Urine UA Negative (Negative); Ketones Urine Negative (Negative); Leukocyte Esterase Ur 2+ LEU/UL (Negative); Nitrate Urine Negative (Negative); Non Pathogenic Casts 0-2; Protein Urine 1+ mg/dL (Negative); RBC Urine 21-50 /hpf (0-2); Squamous Epithelial Cell Urine None seen /hpf (Few); Urobilinogen Urine 0.2 mg/dL (<2.0); WBC Urine 21-50 /hpf
[2022-05-08 03:20] LABS: Add Urine Microscopic? YES
[2022-05-08] MEDS: CEPHALEXIN 500 MG CAPSULE PO ×3 (06:04→21:03)
[2022-05-08 06:40] LABS: Hematocrit 25.7 % (37.0-47.0); Hemoglobin 8.3 g/dL (12.0-15.0)
[2022-05-08] MEDS: carvediloL 3.125 MG TABLET PO ×2 (08:23→21:03)
[2022-05-08] MEDS: OMEGA 3 POLYUNSAT FATTY ACIDS 1 GM CAP PO (08:24)
--- NOTE | 2022-05-08 10:04 | PM.IMPN ---
Progress Note: A&P Assessment and Plan (1) Acute blood loss anemia: Code(s): D62 - Acute posthemorrhagic anemia Status: Acute Assessment and Plan: hgb 6 reportedly. Upon admission Hgb 7.6. she c/o dizziness and fatigue. H/O gross hematuria and 05/04 transurethral bladder tumor resection with Dr. Nugent. MCV, MCH and MCHC within normal limits. Given 1 unit PRBC with repeat Hgb 8.3. Trend H/H. Transfuse if <7 mg/dL. hemoccult stools. Start ferrous sulfate 325 mg PO daily and vitamin C 500 mg PO daily for 6-8 weeks. Iron panel not drawn prior to blood transfusion and would be inaccurate at this point. (2) Gross hematuria: Code(s): R31.0 - Gross hematuria Status: Acute Assessment and Plan: s/p cystoscopy with clot evacuation, transurethral resection bladder tumor with biopsies. Gross hematuria resolved on Saturday per patient. consult Urology given patient had recent procedure (3) Neurogenic bladder: Code(s): N31.9 - Neuromuscular dysfunction of bladder, unspecified Status: Chronic Assessment and Plan: Chronic, continue self catheterization (4) Hypertension: Code(s): I10 - Essential (primary) hypertension Status: Chronic Assessment and Plan: Chronic, continue coreg, amlodipine and lisinopril. Monitor vitals. Plan CODE STATUS: FULL CODE Disposition: from home, lives alone. PT/OT evaluation. Time Spent With Patient Time with patient: 15 - 25 minutes Subjective Date/time seen: 05/08/22 10:04 Interval history: She is feeling a little better today, although still weak. She denies chest pain, SOB, hematuria, melena, hematechezia. No abdominal pain, N/V. No falls at home. She has never been told she had anemia or taken iron or vitamin supplements. Review of Systems Review of Systems: All systems reviewed & are unremarkable except as noted in HPI and below Exam Narrative: General: No acute distress.? lying in bed. Neuro/Psych: Awake, alert and oriented x4 with clear speech. Pleasant and cooperative. Skin: Pale, warm, dry and intact without rashes or lesions. HEENT: Normocephalic. Sclera is non-icteric. Pupils equal and round. Oral mucosa pink and moist. Neck: Supple. No JVD. Heart: S1 and S2 regular rate and rhythm. No murmurs, gallops, or rubs auscultated. Chest: Respirations even and unlabored. Lung sounds are clear to auscultation without wheezes, rhonchi, or rales. Abdomen: Soft, round, nondistended and non-tender to palpation.? Bowel sounds present in all 4 quadrants. No guarding. Extremities:? No edema, erythema or calf tenderness. Grossly normal ROM with generalized weakness. Objective Data Vital Signs Vital Signs: Vital Signs - 24 hr 05/07/22 19:38 05/07/22 22:23 05/07/22 23:21 Temperature 98 F 98.7 F Pulse Rate 89 74 76 Respiratory Rate 16 16 Blood Pressure 167/80 H 194/83 H 181/75 H Pulse Oximetry 98 98 Oxygen Delivery Room Air 05/07/22 23:26 05/07/22 23:21 05/07/22 23:21 Temperature Pulse Rate 85 74 85 Respiratory Rate 18 Blood Pressure 169/82 H 173/82 H 169/82 H Pulse Oximetry 98 Oxygen Delivery 05/08/22 00:33 05/08/22 00:50 05/08/22 01:55 Temperature 98.4 F Pulse Rate 68 77 Respiratory Rate 17 17 Blood Pressure 184/75 H 178/81 H 184/79 H Pulse Oximetry 95 99 Oxygen Delivery 05/08/22 02:09 05/08/22 02:17 05/08/22 02:46 Temperature 98.4 F 98.1 F Pulse Rate 82 75 73 Respiratory Rate 16 16 18 Blood Pressure 166/99 H 172/80 H 194/74 H Pulse Oximetry 94 99 100 Oxygen Delivery 05/08/22 02:59 05/08/22 02:55 05/08/22 03:06 Temperature 98.1 F Pulse Rate 80 75 Respiratory Rate 18 Blood Pressure 172/80 H Pulse Oximetry 100 Oxygen Delivery Room Air 05/08/22 03:17 05/08/22 03:55 05/08/22 04:17 Temperature 98.1 F 97.6 F 97.7 F Pulse Rate 78 78 71 Respiratory Rate 20 18 18 Blood Pressure 169/68 H 177/68 H 176/67 H Pulse Oximetry 100 100 98 Ox
[2022-05-08 11:48] LABS: Hematocrit 25.6 % (37.0-47.0); Hemoglobin 8.3 g/dL (12.0-15.0)
--- NOTE | 2022-05-08 15:00 | WPDURCON ---
Assessment and Plan Assessment and plan (1) Gross hematuria: Code(s): R31.0 - Gross hematuria Status: Acute Assessment and Plan: Resolved on Saturday, 24 hours post operatively per patient. Will get a stat ROBBIN to rule out continuous bleeding in the bladder from the operative site. If that is normal, I recommend looking for other sources of anemia. She has no UTI symptoms and lost no to minimal blood during the procedure itself according to the operative note. (2) Neurogenic bladder: Code(s): N31.9 - Neuromuscular dysfunction of bladder, unspecified Status: Acute Assessment and Plan: Continue intermittent catheterization. (3) Acute blood loss anemia: Code(s): D62 - Acute posthemorrhagic anemia Status: Acute Urology Consult Note HPI Date Seen: 05/08/22 Time Seen: 13:30 Requesting Physician: Clary Posey MD Primary Care Provider: Katie Meyer, PA Consult Narrative Reason for consult: Anemia/Gross Hematuria s/p TURBT Narrative: Nydia Goldman is a 81 year old female who was admitted following weakness and dizziness s/p a Cystoscopy, clot evacuation, TURBT on 05/04/[address] Nugent. She arrived to the ER yesterday and was admitted d/t anemia. Her HBG is 8.3, HCT 25.6, creatinine is 0.50 and WBC 5.7, she is afebrile and UA is not suggestive of a UTI. 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 Pathology shows: Bladder, tumor, transurethral resection bladder tumor (A):-? Non-invasive high-grade papillary urothelial carcinoma -? No muscularis propria. Bladder, random, biopsy (B):-? Benign cystitis. Bladder, dome, biopsy (C):-? Benign keratinizing squamous metaplasia. She self catheterizes but has been having the nursing staff straight cath her while here d/t weakness. She has no symptoms of a UTI and states her gross hematuria ceased on Saturday05/05/22 about 24 hours after surgery. Review of Systems Genitourinary: Genitourinary: Denies hematuria, Denies dysuria, Denies pelvic pain, Denies flank pain, Denies urinary incontinence, Reports urinary hesitancy and Denies urinary urgency PMFSH Past Medical History Medical History Hx of recurrent urinary tract infection Hypertension Neurogenic bladder Surgical History Surgical History H/O hysterectomy for benign disease Family History Family History Other Cerebrovascular accident Family history of alcoholism Family history of arthritis Family history of mental disorder Hypertension Social History Social History Smoking status: Former smoker Smoking end date: 02/12/1964 Alcohol intake: never Substance use: never Lack of Transportation: No Lack of Food: Never True Current Housing: I Have Housing Concerned About Future Housing: No Difficulty Paying Gas/Electric Bills: No Difficulty Paying for Meds: No Currently Unemployed: No Education: High School Diploma/GED Difficulty w/ Childcare or Family Care: No Living arrangements: with family Gender identity (if verbalized by the patient): Female Spiritual care concerns: No Meds Home Medications and Allergies Home Medications Medication Instructions Recorded Confirmed Type alprazolam 0.5 mg tablet 0.5 mg PO PRN PRN Anxiety 05/02/22 05/08/22 History amlodipine 2.5 mg tablet 2.5 mg PO DAILY 05/02/22 05/08/22 History carvedilol 3.125 mg tablet 3.125 mg PO BID 05/02/22 05/08/22 History cholecalciferol (vitamin D3) 100 100 mcg PO DAILY 05/02/22 05/08/22 History mcg (4,000 unit) tablet lisinopril 40 mg tablet 40 mg PO DAILY 05/02/22 05/08/22 History omega-3 fatty aci
[2022-05-08] MEDS: lisinopriL 20 MG TABLET 40 MG PO (17:12)
[2022-05-08] MEDS: amLODIPine BESYLATE 2.5 MG TABLET PO (17:12)
[2022-05-08 17:51] LABS: Hematocrit 28.1 % (37.0-47.0); Hemoglobin 9.1 g/dL (12.0-15.0)
[2022-05-09] VITALS (13 sets, daily range): BP systolic 125–156; BP diastolic 58–73; PULSE 66–75; RESP 16–18; TEMP 36.3–37.2; O2SAT 95–97
[2022-05-09] MEDS: ONDANSETRON INJ 4 MG/2 ML VIAL IV PUSH ×3 (02:19→16:46)
[2022-05-09] MEDS: polyethylene glycoL 3350 17 GM POWD.PACK PO (02:51)
[2022-05-09 05:11] LABS: Hematocrit 25.9 % (37.0-47.0); Hemoglobin 8.5 g/dL (12.0-15.0); Mean Corpuscular HGB Conc 32.8 g/dl (32-36); Mean Corpuscular Hemoglobin 26.4 pg (26-34); Mean Corpuscular Volume 80.4 fl (80-100); Mean Platelet Volume 8.7 fl (7.4-10.4); Platelet Count Result 175 k/mm3 (150-375); Red Blood Count 3.22 M/mm3 (4.2-5.4); Red Cell Distribution Width 15.9 % (11.5-14.5); White Blood Count 6.6 K/mm3 (4.5-10.0)
[2022-05-09 05:14] LABS: Alanine Aminotransferase 16 U/L (6-35); Albumin Level 3.4 g/dL (3.5-5.1); Alkaline Phosphatase 60 U/L (38-126); Anion Gap 6 mmol/L (8-16); Aspartate Amino Transferase 22 U/L (14-36); Bilirubin,Total 0.5 mg/dL (0.2-1.3); Blood Urea Nitrogen 11 mg/dL (7-17); Calcium 8.3 mg/dL (8.4-10.2); Carbon Dioxide 24 mmol/L (22-30); Chloride 103 mmol/L (98-107); Estimated CRCL calculation 82 ml/min; Estimated Glomerular Filt Rate > 60; Glucose 143 mg/dL (65-110); Potassium 3.4 mmol/L (3.4-5.0); Sodium 133 mmol/L (137-145)
[2022-05-09 06:20] LABS: Folic Acid 9.6 ng/mL (2.76->20)
[2022-05-09] MEDS: CEPHALEXIN 500 MG CAPSULE PO ×3 (06:20→21:51)
[2022-05-09] MEDS: lisinopriL 20 MG TABLET 40 MG PO (10:37)
[2022-05-09] MEDS: carvediloL 3.125 MG TABLET PO ×2 (10:38→21:52)
[2022-05-09] MEDS: amLODIPine BESYLATE 2.5 MG TABLET PO (10:38)
[2022-05-09] MEDS: PANTOPRAZOLE SODIUM IV 40 MG VIAL IV PUSH (10:39)
--- NOTE | 2022-05-09 12:05 | WPDUROPN2 ---
Progress Note: A&P Assessment and Plan (1) Gross hematuria: Code(s): R31.0 - Gross hematuria Status: Acute Assessment and Plan: Resolved, ROBBIN shows no clots or abnormality. Urine culture is pending, tailor antibiotics to culture results. (2) Neurogenic bladder: Code(s): N31.9 - Neuromuscular dysfunction of bladder, unspecified Status: Chronic Assessment and Plan: Continue daily intermittent catheterization (3) Acute blood loss anemia: Code(s): D62 - Acute posthemorrhagic anemia Status: Acute Assessment and Plan: Minimal to no blood loss reported during the procedure, post operative hematuria ceased within 24 hours. Anemia is not related to TURBT, we recommend searching for other sources of anemia. (4) Bladder cancer: Code(s): C67.9 - Malignant neoplasm of bladder, unspecified Status: Acute Assessment and Plan: We discussed her non invasive high grade bladder tumor that was removed and noted in her pathology report from Saturday's TURBT. Dr. Nugent and I discussed the plan for her including a scope to monitor her bladder in 3 months, she will not require any further treatments at this time for bladder cancer. Ok to discharge when stable per Urology, no further evaluation needed. Subjective Subjective Date/Time Seen: 05/09/22 12:05 ROBBIN shows abnormality of the bladder or clots. She has no gross hematuria at this time, but remains anemic, nauseated and constipated. Her pathology results are as follows and were discussed today at the bedside: Bladder, tumor, transurethral resection bladder tumor (A): -? Non-invasive high-grade papillary urothelial carcinoma -? No muscularis propria Bladder, random, biopsy (B): -? Benign cystitis Bladder, dome, biopsy (C): -? Benign keratinizing squamous metaplasia S/P TURBT and clot evac on 05/04/22. Post Op day: 5 Review of Systems Cardiovascular: Cardiovascular: Denies chest pain Respiratory: Respiratory: Reports no additional respiratory complaints Gastrointestinal: Gastrointestinal: Denies abdominal pain, Reports constipation, Reports nausea and Denies vomiting Genitourinary: Genitourinary: Denies hematuria, Denies dysuria, Denies flank pain, Denies urinary incontinence and Reports other (retention, requires intermittent cath) Exam Const: General: cooperative Resp: Effort & Inspection: normal respiratory effort Cardio: Rate: regular rate GI: GI Palp: Yes Soft to palpation and No Tenderness to palpation present (GI) : General: Yes no CVA tenderness Extrem: Right lower extremity: no edema Left lower extremity: no edema Objective Data Vital Signs Vital Signs: Vital Signs - 24 hr 05/08/22 14:00 05/08/22 16:00 05/08/22 19:34 Temperature 97.8 F 98.5 F Pulse Rate 75 97 70 Respiratory Rate 16 18 Blood Pressure 150/70 H 151/69 H Pulse Oximetry 96 95 05/08/22 21:03 05/08/22 20:00 05/09/22 00:00 Temperature Pulse Rate 80 70 73 Respiratory Rate Blood Pressure Pulse Oximetry 05/09/22 02:11 05/09/22 05:00 05/09/22 06:00 Temperature 97.3 F L 97.9 F Pulse Rate 75 69 73 Respiratory Rate 18 18 Blood Pressure 156/73 H 144/67 H Pulse Oximetry 95 97 05/09/22 10:38 05/09/22 10:30 Temperature 97.3 F L Pulse Rate 66 70 Respiratory Rate Blood Pressure 125/66 Pulse Oximetry 96 Intake/Output Intake/Output: Intake & Output 05/06/22 05/07/22 05/08/22 05/09/22 23:59 23:59 23:59 23:59 Intake Total 1950 450 Output Total 3250 950 Balance -1300 -500 Meds/Results Medications: Active Medications Generic Name Dose Route Start Last Admin Trade Name Freq PRN Reason Stop Dose Admin Alprazolam 0.5 mg 05/08/22 04:00 Alprazolam (*Crx) 0.5 Mg Tablet PO BID PRN Anxiety Amlodipine Besylate 2.5 mg 05/08/22 16:10 05/09/22 10:38 Amlodipine Besylate 2.5 Mg Tablet PO 2.5 mg QAM NAOMI Administration Ascorbic Acid 500 mg 03
--- NOTE | 2022-05-09 13:05 | PC.NURSE ---
On 05/09/22, the student, [Claire Rizo], provided care and completed [facility] documentation on this patient. I have reviewed the student's documentation and agree with the findings.
--- NOTE | 2022-05-09 13:31 | PM.IMPN ---
Progress Note: A&P Assessment and Plan (1) Acute blood loss anemia: Code(s): D62 - Acute posthemorrhagic anemia Status: Acute Assessment and Plan: hgb 6 reportedly. Upon admission Hgb 7.6. she c/o dizziness and fatigue. H/O gross hematuria and 05/04 transurethral bladder tumor resection with Dr. Nugent. MCV, MCH and MCHC within normal limits. Given 1 unit PRBC with repeat Hgb 8.3. Trend H/H. Transfuse if <7 mg/dL. hemoccult stools. Start ferrous sulfate 325 mg PO daily and vitamin C 500 mg PO daily for 6-8 weeks. Iron panel not drawn prior to blood transfusion and would be inaccurate at this point. (2) Gross hematuria: Code(s): R31.0 - Gross hematuria Status: Acute Assessment and Plan: s/p cystoscopy with clot evacuation, transurethral resection bladder tumor with biopsies. Gross hematuria resolved on Saturday per patient. consult Urology given patient had recent procedure (3) Neurogenic bladder: Code(s): N31.9 - Neuromuscular dysfunction of bladder, unspecified Status: Chronic Assessment and Plan: Chronic, continue self catheterization (4) Hypertension: Code(s): I10 - Essential (primary) hypertension Status: Chronic Assessment and Plan: Chronic, continue coreg, amlodipine and lisinopril. Monitor vitals. (5) Abdominal pain: Code(s): R10.9 - Unspecified abdominal pain Status: Acute Assessment and Plan: Patient reported having abdominal pain 05/09/2022 Patient states she has not had a bowel movement in approximately 7 days. Patient given MiraLax and Dulcolax p.r.n.. Patient is still passing gas and has no history of abdominal surgeries. Patient given Zofran for nausea. Patient with known reported vomiting. Previous CT abdomen pelvis revealed bladder mass and constipation. Will repeat CT abdomen pelvis. Consult GI due to abdominal pain and the anemia. (6) B12 deficiency: Code(s): E53.8 - Deficiency of other specified B group vitamins Status: Acute Assessment and Plan: patient's B12 found to be 239 and folate of 9.6. Will give patient 1 1000 mcg B12 injection following 1000 mcg p.o. supplementation. Plan CODE STATUS: FULL CODE Disposition: from home, lives alone. PT/OT evaluation. Time Spent With Patient Time with patient: 25 - 35 minutes Subjective Date/time seen: 05/09/22 13:31 Interval history: Patient not feeling well at all today. Patient having Nausea and abdominal pain. Patient states that she has not had a bowel movement in approximately 7 days. Patient did receive MiraLax last night her but has not had any bowel movement. patient's anemia is not suspected to be due to a urologic causes and urology recommends other investigation of source of patient's anemia. Patient denies body aches, chills, dizziness, chest pain, shortness a breath, dysuria and fever. Review of Systems Review of Systems: All systems reviewed & are unremarkable except as noted in HPI and below Objective Data Vital Signs Vital Signs: Vital Signs - 24 hr 05/08/22 14:00 05/08/22 16:00 05/08/22 19:34 Temperature 97.8 F 98.5 F Pulse Rate 75 97 70 Respiratory Rate 16 18 Blood Pressure 150/70 H 151/69 H Pulse Oximetry 96 95 Oxygen Delivery 05/08/22 21:03 05/08/22 20:00 05/09/22 00:00 Temperature Pulse Rate 80 70 73 Respiratory Rate Blood Pressure Pulse Oximetry Oxygen Delivery 05/09/22 02:11 05/09/22 05:00 05/09/22 06:00 Temperature 97.3 F L 97.9 F Pulse Rate 75 69 73 Respiratory Rate 18 18 Blood Pressure 156/73 H 144/67 H Pulse Oximetry 95 97 Oxygen Delivery 05/09/22 10:38 05/09/22 10:30 05/09/22 08:45 Temperature 97.3 F L Pulse Rate 66 70 Respiratory Rate Blood Pressure 125/66 Pulse Oximetry 96 Oxygen Delivery Room Air 05/09/22 08:00 05/09/22 12:00 Tempera
[2022-05-09] MEDS: BISACODYL 5 MG TABLET EC PO (14:49)
[2022-05-09] MEDS: CYANOCOBALAMIN INJ 1,000 MCG/ML VIAL 1000 MCG IM (14:49)
--- NOTE | 2022-05-09 15:12 | WPDGICN ---
Assessment and Plan Assessment and plan (1) Abdominal pain: Code(s): R10.9 - Unspecified abdominal pain Status: Acute Assessment and Plan: the pain she states began Saturday. In other words that about that time she had her surgery. She suspects that is because she had not had a bowel movement for few days, and now going on a week. She occasionally uses laxatives for her bowels because she chronically is constipated but usually something like prune juice will be sufficient. (2) Stercoral colitis: Code(s): K52.89 - Other specified noninfective gastroenteritis and colitis Status: Acute Assessment and Plan: This is the interpretation of her most recent CT scan. I have reviewed it and it does indeed show a large amount of stool in the rectum and sigmoid. (3) Fecal impaction: Code(s): K56.41 - Fecal impaction Status: Acute Assessment and Plan: As noted above, she has a significant impac tion. I explained that we can usually help with laxatives similar to a colonoscopy prep. I told her that in some cases we need to disimpact digitally. (4) Anemia: Code(s): D64.9 - Anemia, unspecified Status: Acute Assessment and Plan: There is no evidence of active bleeding or acute blood loss. She states that she had not been seen blood in her urine, even after surgery. She has not had blood in her stools. To her knowledge she has never been treated for anemia in the past. We do not have blood counts from prior to this. (5) Bladder cancer: Code(s): C67.9 - Malignant neoplasm of bladder, unspecified Status: Acute Assessment and Plan: She had resection last Saturday. (6) Neurogenic bladder: Code(s): N31.9 - Neuromuscular dysfunction of bladder, unspecified Status: Chronic Assessment and Plan: This raises the question if whether not she could have some neuropathy involving her colon as well. There is not a megacolon seen on CT but she obviously does have chronic constipation although normally she can manage it at home fairly well with glycerin suppositories or prune juice Plan begin laxatives, i.e. a colonoscopy prep. She in fact will need a colonoscopy eventually. GI Consult Note Consult date/time: 05/09/22 15:12 HPI: Nydia Goldman is a 81 year old female was admitted late Saturday because of progressive weakness. She also had been having abdominal pain. Just last Saturday she had removal of a tumor from her bladder. She has a neurogenic bladder for which she does self catheterization regularly. An ultrasound and also CT scan do not show any residual tumor in the bladder. The pathology on the tumor was: Bladder, tumor, transurethral resection bladder tumor (A): -? Non-invasive high-grade papillary urothelial carcinoma -? No muscularis propria she states she has not had a bowel movement since last Saturday. She was not able to eat much breakfast today because she feels full. Her abdomen feels tight. A CT scan today shows fecal impaction with stercoral colitis. In other words the rectum and sigmoid are distended with stool. She has only had a scant bit of stool per rectum today which was soft. She has been found to be anemic with a hemoglobin of 7.3. The most recent 1 today is 8.5. She had not been seen blood her stools. She has never been treated for anemia. Her last colonoscopy was about 15 years ago. She does not use NSAIDs regularly but occasionally takes aspirin. She has never had an ulcer. She has had no vomiting but she is nauseated since she became constipated. She had not had abdominal pain prior to last Saturday. Review of Systems Review of Systems: All systems reviewed & are unremarkable except as noted in HPI and below PMFSH Past Medical History Medical History Hx of recurrent urinary tract infection Hypertension Neurogenic bladder [facility]ra
[2022-05-09] MEDS: polyethylene glycoL 3350 238 GM BOTTLE 119 GM PO (17:36)
[2022-05-09] MEDS: BISACODYL 5 MG TABLET EC 10 MG PO (17:36)
[2022-05-09] MEDS: ALPRAZolam (*CRX) 0.5 MG TABLET PO (21:52)
[2022-05-10] VITALS (17 sets, daily range): BP systolic 116–148; BP diastolic 57–83; PULSE 65–78; RESP 14–22; TEMP 36.3–36.8; O2SAT 92–97
[2022-05-10] MEDS: SODIUM CHLORIDE 0.9% IV 500 ML 75 ML IV CONT (04:14)
[2022-05-10 05:08] LABS: Basophils Percent Auto 0.2 % (0.2-1.2); Eosinophils Percent Auto 0.2 % (0-4.4); Hematocrit 26.9 % (37.0-47.0); Hemoglobin 8.3 g/dL (12.0-15.0); Immature Granulocyte Absolute 0.03 K/mm3 (0.00-0.031); Immature Granulocyte Percent A 0.5 % (0-0.5); Lymphocytes Absolute Auto 0.87 K/mm3 (0.9-3.2); Lymphocytes Percent Auto 14.7 % (18.3-44.2); Mean Corpuscular HGB Conc 30.9 g/dl (32-36); Mean Corpuscular Hemoglobin 25.5 pg (26-34); Mean Corpuscular Volume 82.8 fl (80-100); Monocytes Absolute Auto 0.5 K/mm3 (0.1-0.6); Monocytes Percent Auto 8.8 % (2.6-8.5); Neutrophils Absolute Auto 4.5 K/mm3 (1.3-6.7); Neutrophils Percent Auto 75.6 % (45.5-73.1); Nucleated Red Blood Cells Perc 0.5 % (0.0-0.2); Platelet Count Result 141 k/mm3 (150-375); Red Blood Count 3.25 M/mm3 (4.2-5.4); Red Cell Distribution Width 15.7 % (11.5-14.5); White Blood Count 5.9 K/mm3 (4.5-10.0)
[2022-05-10 05:23] LABS: Alanine Aminotransferase 15 U/L (6-35); Albumin Level 3.4 g/dL (3.5-5.1); Alkaline Phosphatase 54 U/L (38-126); Anion Gap 6 mmol/L (8-16); Aspartate Amino Transferase 25 U/L (14-36); Bilirubin,Total 0.6 mg/dL (0.2-1.3); Blood Urea Nitrogen 17 mg/dL (7-17); Calcium 8.5 mg/dL (8.4-10.2); Carbon Dioxide 26 mmol/L (22-30); Chloride 102 mmol/L (98-107); Estimated CRCL calculation 48 ml/min; Estimated Glomerular Filt Rate 60; Glucose 122 mg/dL (65-110); Potassium 3.2 mmol/L (3.4-5.0); Sodium 134 mmol/L (137-145)
[2022-05-10] MEDS: CEPHALEXIN 500 MG CAPSULE PO (06:35)
[2022-05-10] MEDS: amLODIPine BESYLATE 2.5 MG TABLET PO (09:14)
[2022-05-10] MEDS: BISACODYL 5 MG TABLET EC 10 MG PO ×2 (09:14→16:25)
[2022-05-10] MEDS: lisinopriL 20 MG TABLET 40 MG PO (09:14)
[2022-05-10] MEDS: carvediloL 3.125 MG TABLET PO (09:15)
[2022-05-10] MEDS: PANTOPRAZOLE SODIUM IV 40 MG VIAL IV PUSH (09:18)
[2022-05-10] MEDS: polyethylene glycoL 3350 17 GM POWD.PACK PO (09:18)
[2022-05-10] MEDS: ONDANSETRON INJ 4 MG/2 ML VIAL IV PUSH ×2 (10:50→21:12)
--- NOTE | 2022-05-10 11:38 | WPDGIPROGNO ---
Progress Note: A&P Assessment and Plan (1) Abdominal pain: Code(s): R10.9 - Unspecified abdominal pain Status: Acute Assessment and Plan: the pain she states began Saturday. In other words that about that time she had her surgery. She suspects that is because she had not had a bowel movement for few days, and now going on a week. She occasionally uses laxatives for her bowels because she chronically is constipated but usually something like prune juice will be sufficient. 05/10/2022 pain is worse today. She is much more distended as well. (2) Stercoral colitis: Code(s): K52.89 - Other specified noninfective gastroenteritis and colitis Status: Acute Assessment and Plan: This is the interpretation of her most recent CT scan. I have reviewed it and it does indeed show a large amount of stool in the rectum and sigmoid. (3) Fecal impaction: Code(s): K56.41 - Fecal impaction Status: Acute Assessment and Plan: As noted above, she has a significant impac tion. I explained that we can usually help with laxatives similar to a colonoscopy prep. I told her that in some cases we need to disimpact digitally. 05/10/2022 due to lack of success with laxatives, will remove impaction today with sedation. (4) Anemia: Code(s): D64.9 - Anemia, unspecified Status: Acute Assessment and Plan: There is no evidence of active bleeding or acute blood loss. She states that she had not been seen blood in her urine, even after surgery. She has not had blood in her stools. To her knowledge she has never been treated for anemia in the past. We do not have blood counts from prior to this. (5) Bladder cancer: Code(s): C67.9 - Malignant neoplasm of bladder, unspecified Status: Acute Assessment and Plan: She had resection last Saturday. (6) Neurogenic bladder: Code(s): N31.9 - Neuromuscular dysfunction of bladder, unspecified Status: Chronic Assessment and Plan: This raises the question if whether not she could have some neuropathy involving her colon as well. There is not a megacolon seen on CT but she obviously does have chronic constipation although normally she can manage it at home fairly well with glycerin suppositories or prune juice Plan will attempt to remove fecal impaction today to relieve obstruction. Subjective Date/time seen: 05/10/22 11:38 the patient vomited most of the MiraLax that she drank last night. He is able to keep some liquids down this morning but is feeling more distended and uncomfortable. She has had no bowel movements yet. She is feeling weak and tired. Exam Const: General: comfortable, alert and overweight Nutritional Appearance: overweight Orientation/consciousness: patient oriented x3 Resp: Auscultation: clear to auscultation bilaterally Cardio: Rhythm: regular rhythm GI: Inspection: distended and other ( Protuberant, More so than yesterday) GI Palp: Yes abdominal tenderness ( diffuse) Percussion: Yes tympanic to percussion Auscultation: normal bowel sounds Neuro: General: patient oriented x3 Objective Data Vital Signs Vital Signs: Vital Signs - 24 hr 05/09/22 12:00 05/09/22 14:04 05/09/22 16:00 Temperature 37.2 C Pulse Rate 67 72 70 Respiratory Rate 16 Blood Pressure 147/65 H Pulse Oximetry 97 Oxygen Delivery 05/09/22 20:25 05/09/22 21:52 05/10/22 06:00 Temperature 36.9 C 36.3 C L Pulse Rate 71 71 73 Respiratory Rate 18 18 Blood Pressure 138/58 L 127/63 Pulse Oximetry 97 97 Oxygen Delivery 05/09/22 20:00 05/10/22 00:00 05/10/22 04:00 Temperature Pulse Rate 71 67 73 Respiratory Rate Blood Pressure Pulse Oximetry Oxygen Delivery 05/10/22 08:00 05/10/22 08:00 05/10/22 09:15 Temperature Pulse Rate 65 73 Respiratory Rate 18 Blood Pressure Pulse Oximetry 96 Oxygen Delivery Room Air Intake/Output
--- NOTE | 2022-05-10 12:25 | PC.NURSE ---
To GI Lab via [employer].
--- NOTE | 2022-05-10 12:39 | P.PNIM_ITS ---
Progress Note: A&P Assessment and Plan (1) Acute blood loss anemia: Code(s): D62 - Acute posthemorrhagic anemia Status: Acute Assessment and Plan: hgb 6 reportedly. Upon admission Hgb 7.6. she c/o dizziness and fatigue. H/O gross hematuria and 05/04 transurethral bladder tumor resection with Dr. Nugent. * MCV, MCH and MCHC within normal limits. * Given 1 unit PRBC with repeat Hgb 8.3. * Trend H/H. Transfuse if <7 mg/dL. * hemoccult stools. * Start ferrous sulfate 325 mg PO daily and vitamin C 500 mg PO daily for 6-8 weeks. * Iron panel not drawn prior to blood transfusion and would be inaccurate at this point. * Stable (2) Gross hematuria: Code(s): R31.0 - Gross hematuria Status: Acute Assessment and Plan: s/p cystoscopy with clot evacuation, transurethral resection bladder tumor with biopsies. * Gross hematuria resolved on Saturday per patient. * consult Urology given patient had recent procedure * Resolved (3) Neurogenic bladder: Code(s): N31.9 - Neuromuscular dysfunction of bladder, unspecified Status: Chronic Assessment and Plan: Chronic, continue self catheterization (4) Hypertension: Code(s): I10 - Essential (primary) hypertension Status: Chronic Assessment and Plan: Chronic, continue coreg, amlodipine and lisinopril. Monitor vitals. (5) Abdominal pain: Code(s): R10.9 - Unspecified abdominal pain Status: Acute Assessment and Plan: Patient reported having abdominal pain 05/09/2022 * Patient states she has not had a bowel movement in approximately 7 days. Patient given MiraLax and Dulcolax p.r.n.. * Patient is still passing gas and has no history of abdominal surgeries. * Patient given Zofran for nausea. Patient with known reported vomiting. * Past CT abdomen pelvis revealed bladder mass and constipation. * Repeat CT abdomen pelvis positive for constipation * Consult GI due to abdominal pain and the anemia. (6) B12 deficiency: Code(s): E53.8 - Deficiency of other specified B group vitamins Status: Acute Assessment and Plan: patient's B12 found to be 239 and folate of 9.6. * Will give patient 1 1000 mcg B12 injection following 1000 mcg p.o. supplementation. (7) Constipation: Code(s): K59.00 - Constipation, unspecified Status: Acute Assessment and Plan: CT abdomen and pelvis showed constipation and fecal impaction. * GI consulted due to patient's anemia and abdominal pain * Patient not had a bowel movement in 8 days * Patient given laxatives per GI * 05/10/2022 lack of success with the laxatives and patient having fecal impacti on with sedation. (8) Fecal impaction: Code(s): K56.41 - Fecal impaction Status: Acute Assessment and Plan: see above Plan CODE STATUS: FULL CODE Disposition: from home, lives alone. PT/OT evaluation. Subjective Date/time seen: 05/10/22 12:39 Interval history: Patient stated to me that her nausea has resolved but is still having some abdominal pain. Patient unable to tolerate her prep to help alleviate her constipation. She is being taken to surgery this afternoon. Review of Systems Review of Systems: All systems reviewed & are unremarkable except as noted in HPI and below Exam Narra
--- NOTE | 2022-05-10 12:39 | PM.IMPN ---
Progress Note: A&P Assessment and Plan (1) Acute blood loss anemia: Code(s): D62 - Acute posthemorrhagic anemia Status: Acute Assessment and Plan: hgb 6 reportedly. Upon admission Hgb 7.6. she c/o dizziness and fatigue. H/O gross hematuria and 05/04 transurethral bladder tumor resection with Dr. Nugent. MCV, MCH and MCHC within normal limits. Given 1 unit PRBC with repeat Hgb 8.3. Trend H/H. Transfuse if <7 mg/dL. hemoccult stools. Start ferrous sulfate 325 mg PO daily and vitamin C 500 mg PO daily for 6-8 weeks. Iron panel not drawn prior to blood transfusion and would be inaccurate at this point. Stable (2) Gross hematuria: Code(s): R31.0 - Gross hematuria Status: Acute Assessment and Plan: s/p cystoscopy with clot evacuation, transurethral resection bladder tumor with biopsies. Gross hematuria resolved on Saturday per patient. consult Urology given patient had recent procedure Resolved (3) Neurogenic bladder: Code(s): N31.9 - Neuromuscular dysfunction of bladder, unspecified Status: Chronic Assessment and Plan: Chronic, continue self catheterization (4) Hypertension: Code(s): I10 - Essential (primary) hypertension Status: Chronic Assessment and Plan: Chronic, continue coreg, amlodipine and lisinopril. Monitor vitals. (5) Abdominal pain: Code(s): R10.9 - Unspecified abdominal pain Status: Acute Assessment and Plan: Patient reported having abdominal pain 05/09/2022 Patient states she has not had a bowel movement in approximately 7 days. Patient given MiraLax and Dulcolax p.r.n.. Patient is still passing gas and has no history of abdominal surgeries. Patient given Zofran for nausea. Patient with known reported vomiting. Past CT abdomen pelvis revealed bladder mass and constipation. Repeat CT abdomen pelvis positive for constipation Consult GI due to abdominal pain and the anemia. (6) B12 deficiency: Code(s): E53.8 - Deficiency of other specified B group vitamins Status: Acute Assessment and Plan: patient's B12 found to be 239 and folate of 9.6. Will give patient 1 1000 mcg B12 injection following 1000 mcg p.o. supplementation. (7) Constipation: Code(s): K59.00 - Constipation, unspecified Status: Acute Assessment and Plan: CT abdomen and pelvis showed constipation and fecal impaction. GI consulted due to patient's anemia and abdominal pain Patient not had a bowel movement in 8 days Patient given laxatives per GI 05/10/2022 lack of success with the laxatives and patient having fecal impaction with sedation. (8) Fecal impaction: Code(s): K56.41 - Fecal impaction Status: Acute Assessment and Plan: see above Plan CODE STATUS: FULL CODE Disposition: from home, lives alone. PT/OT evaluation. Subjective Date/time seen: 05/10/22 12:39 Interval history: Patient stated to me that her nausea has resolved but is still having some abdominal pain. Patient unable to tolerate her prep to help alleviate her constipation. She is being taken to surgery this afternoon. Review of Systems Review of Systems: All systems reviewed & are unremarkable except as noted in HPI and below Exam Narrative: GENERAL: Comfortable, no acute distress HENMT: moist mucous membranes EYES: EOM intact b/l NECK: no lymphadenopathy RESPIRATORY: clear to auscultation CARDIO: RRR GI: mild abdominal distension SKIN: no rashes EXTREMITIES: no edema, redness or tenderness Objective Data Vital Signs Vital Signs: Vital Signs - 24 hr 05/09/22 14:04 05/09/22 16:00 05/09/22 20:25 Temperature 99.0 F 98.4 F Pulse Rate 72 70 71 Respiratory Rate 16 18 Blood Pressure 147/65 H 138/58 L Pulse Oximetry 97 97 Oxygen Delivery 05/09/22 21:52 05/10/22 06:00 05/09/22 20:00 Tem
[2022-05-10] MEDS: LACTATED RINGERS 1,000 ML 150 ML IV CONT (12:54)
--- NOTE | 2022-05-10 13:11 | PC.NURSE ---
On 05/10/22, the student, [Jesse Martinez], provided care and completed [facility] documentation on this patient. I have reviewed the student's documentation and agree with the findings.
--- NOTE | 2022-05-10 13:43 | WPDANESEPPF ---
Anes - Initial Pre Proc Eval Procedure: Operation Date: 05/10/22 14:00 Proposed Procedures p Exam Under Anesthesia GI - Olegario Mckenzie MD Date/Time: 05/10/22 13:43 Surgeon: Clary Posey MD Pre Op Diagnosis: Anemia, Recent Bladder Surgery Patient Data Age: 81 Gender: F Height: 1.64 m Weight: 88.8 kg Last Vital Signs Temp 97.5 F L 05/10/22 12:51 Pulse 69 05/10/22 12:51 Resp 20 05/10/22 12:51 BP 125/57 L 05/10/22 12:51 Pulse Ox 95 05/10/22 12:51 O2 Del Method Room Air 05/10/22 12:51 Allergies Allergy/AdvReac Type Severity Reaction Status Date / Time hydrocodone Allergy Mild DISORIENTAT Verified 05/10/22 12:43 ION diazepam Allergy Unknown disorientat Verified 05/10/22 12:43 ion Home Medications Medication Instructions Recorded Confirmed Type alprazolam 0.5 mg tablet 0.5 mg PO PRN PRN Anxiety 05/02/22 05/08/22 History amlodipine 2.5 mg tablet 2.5 mg PO DAILY 05/02/22 05/08/22 History carvedilol 3.125 mg tablet 3.125 mg PO BID 05/02/22 05/08/22 History cholecalciferol (vitamin D3) 100 100 mcg PO DAILY 05/02/22 05/08/22 History mcg (4,000 unit) tablet lisinopril 40 mg tablet 40 mg PO DAILY 05/02/22 05/08/22 History omega-3 fatty acids 1,000 mg PO DAILY 05/02/22 05/08/22 History cephalexin 500 mg capsule 500 mg PO Q8H #9 caps 05/04/22 05/08/22 Rx tramadol 50 mg tablet 50 mg PO Q6H PRN pain #20 tabs 05/04/22 05/08/22 Rx Laboratory Tests 05/10/22 05/10/22 04:55 04:55 WBC 5.9 K/mm3 K/mm3 (4.5-10.0) RBC 3.25 M/mm3 L M/mm3 (4.2-5.4) Hgb 8.3 g/dL L g/dL (12.0-15.0) Hct 26.9 % L % (37.0-47.0) MCV 82.8 fl fl (80-100) MCH 25.5 pg L pg (26-34) MCHC 30.9 g/dl L g/dl (32-36) RDW 15.7 % H % (11.5-14.5) Plt Count 141 k/mm3 L k/mm3 (150-375) MPV 9.0 fl fl (7.4-10.4) Immature Gran % (Auto) 0.5 % % (0-0.5) Neut % (Auto) 75.6 % H % (45.5-73.1) Lymph % (Auto) 14.7 % L % (18.3-44.2) Lassen % (Auto) 8.8 % H % (2.6-8.5) Eos % (Auto) 0.2 % % (0-4.4) Baso % (Auto) 0.2 % % (0.2-1.2) Lymph # (Auto) 0.87 K/mm3 L K/mm3 (0.9-3.2) Lassen # (Auto) 0.5 K/mm3 K/mm3 (0.1-0.6) Eos # (Auto) 0.0 K/mm3 K/mm3 (0-0.3) Baso # (Auto) 0.0 K/mm3 K/mm3 (0.0-0.1) Abs Immat Gran (auto) 0.03 K/mm3 K/mm3 (0.00-0.031) Absolute Neuts (auto) 4.5 K/mm3 K/mm3 (1.3-6.7) Absolute Nucleated RBC 0.0 K/mm3 K/mm3 (0.0-0.012) Nucleated RBC % 0.5 % H % (0.0-0.2) Sodium 134 mmol/L L mmol/L (137-145) Potassium 3.2 mmol/L L mmol/L (3.4-5.0) Chloride 102 mmol/L mmol/L (98-107) Carbon Dioxide 26 mmol/L mmol/L (22-30) Anion Gap 6 mmol/L L mmol/L (8-16) BUN 17 mg/dL mg/dL (7-17) Creatinine 0.90 mg/dL mg/dL (0.7-1.0) Estim Creat Clear Calc 48 ml/min ml/min Estimated GFR 60 (59 - ) Glucose 122 mg/dL H mg/dL (65-110) Calcium 8.5 mg/dL mg/dL (8.4-10.2) Total Bilirubin 0.6 mg/dL mg/dL (0.2-1.3) AST 25 U/L U/L (14-36) ALT 15 U/L U/L (6-35) Alkaline Phosphatase 54 U/L U/L (38-126) Total Protein 6.0 g/dL L g/dL (6.3-8.2) Albumin 3.4 g/dL L g/dL (3.5-5.1) Patient hx anesthesia problems: none Family hx anesthesia problems: none Results Review: All pre-operative results and documents have been reviewed as part of the pre-operative evaluation. [facility] Past Medical History Medical History Hx of recurrent urinary tract infection Hypertension Neurogenic bladder Surgical History Surgical History H/O hysterectomy for benign disease Family History Family History Other Cerebrovascular accident Family history of
--- NOTE | 2022-05-10 14:30 | PC.NURSE ---
Returned from GI Lab via stretcher.
[2022-05-10] MEDS: polyethylene glycoL 3350 238 GM BOTTLE 119 GM PO (16:25)
[2022-05-10] MEDS: METOCLOPRAMIDE HCL INJ 10 MG/2 ML VIAL IV PUSH (17:41)
[2022-05-10 19:43] LABS: IFOB Positive Control Positive; Immunochemical Fecal Occult Bl Negative (N)
[2022-05-11] VITALS (12 sets, daily range): BP systolic 112–153; BP diastolic 60–65; PULSE 68–84; RESP 16; TEMP 36.5–37.2; O2SAT 88–97
[2022-05-11] MEDS: carvediloL 3.125 MG TABLET PO ×3 (00:20→21:43)
[2022-05-11] MEDS: CEPHALEXIN 500 MG CAPSULE PO ×4 (00:20→21:43)
[2022-05-11] MEDS: METOCLOPRAMIDE HCL INJ 10 MG/2 ML VIAL IV PUSH ×4 (00:21→17:38)
[2022-05-11 05:39] LABS: Basophils Percent Auto 0.2 % (0.2-1.2); Eosinophils Percent Auto 0.2 % (0-4.4); Hematocrit 27.6 % (37.0-47.0); Hemoglobin 8.8 g/dL (12.0-15.0); Immature Granulocyte Absolute 0.03 K/mm3 (0.00-0.031); Immature Granulocyte Percent A 0.6 % (0-0.5); Lymphocytes Absolute Auto 1.07 K/mm3 (0.9-3.2); Lymphocytes Percent Auto 20.4 % (18.3-44.2); Mean Corpuscular HGB Conc 31.9 g/dl (32-36); Mean Corpuscular Hemoglobin 26.5 pg (26-34); Mean Corpuscular Volume 83.1 fl (80-100); Mean Platelet Volume 9.3 fl (7.4-10.4); Monocytes Absolute Auto 0.6 K/mm3 (0.1-0.6); Monocytes Percent Auto 11.6 % (2.6-8.5); Neutrophils Absolute Auto 3.5 K/mm3 (1.3-6.7); Platelet Count Result 117 k/mm3 (150-375); Red Blood Count 3.32 M/mm3 (4.2-5.4); Red Cell Distribution Width 15.6 % (11.5-14.5); White Blood Count 5.3 K/mm3 (4.5-10.0)
[2022-05-11 06:04] LABS: Alanine Aminotransferase 17 U/L (6-35); Albumin Level 3.3 g/dL (3.5-5.1); Alkaline Phosphatase 59 U/L (38-126); Anion Gap 8 mmol/L (8-16); Aspartate Amino Transferase 25 U/L (14-36); Bilirubin,Total 0.6 mg/dL (0.2-1.3); Blood Urea Nitrogen 22 mg/dL (7-17); Calcium 8.2 mg/dL (8.4-10.2); Carbon Dioxide 24 mmol/L (22-30); Chloride 101 mmol/L (98-107); Estimated CRCL calculation 53 ml/min; Estimated Glomerular Filt Rate > 60; Glucose 114 mg/dL (65-110); Potassium 2.7 mmol/L (3.4-5.0); Sodium 133 mmol/L (137-145)
[2022-05-11] MEDS: POTASSIUM CHLORIDE 20 MEQ TABLET 80 MEQ PO (06:26)
[2022-05-11] MEDS: LINACLOTIDE 145 MCG CAPSULE 290 MCG PO (07:40)
[2022-05-11] MEDS: ASCORBIC ACID 500 MG TABLET PO (08:26)
[2022-05-11] MEDS: lisinopriL 20 MG TABLET 40 MG PO (08:26)
[2022-05-11] MEDS: OMEGA 3 POLYUNSAT FATTY ACIDS 1 GM CAP PO (08:26)
[2022-05-11] MEDS: FERROUS SULFATE 324 MG TABLET PO (08:27)
[2022-05-11] MEDS: CYANOCOBALAMIN 1,000 MCG TABLET 1000 MCG PO (08:27)
[2022-05-11] MEDS: amLODIPine BESYLATE 2.5 MG TABLET PO (08:27)
[2022-05-11] MEDS: polyethylene glycoL 3350 17 GM POWD.PACK PO ×2 (08:27→16:48)
[2022-05-11] MEDS: PANTOPRAZOLE SODIUM IV 40 MG VIAL IV PUSH (08:27)
[2022-05-11] MEDS: BISACODYL 5 MG TABLET EC 10 MG PO ×2 (08:27→16:49)
[2022-05-11 08:59] LABS: Magnesium 1.8 mg/dL (1.6-2.3)
--- NOTE | 2022-05-11 10:08 | OP_ITS ---
DATE OF PROCEDURE: 05/10/2022 PROCEDURE PERFORMED: Removal of impaction under anesthesia. PREOPERATIVE DIAGNOSIS: Severe fecal impaction. POSTOPERATIVE DIAGNOSIS: Severe fecal impaction. DESCRIPTION OF PROCEDURE: With the patient in the left lateral decubitus position, under sedated by Anesthesia, a rectal digital examination was performed. A large fecal impaction was accounted. Manually using my fingers, I broke this up as thoroughly as possible removing parts of solid stool. She tolerated the procedure well. D I MT: Tanisha
--- NOTE | 2022-05-11 11:05 | PC.NURSE ---
On 05/11/22, the student, [Jessica Yi], provided care and completed [facility] documentation on this patient. I have reviewed the student's documentation and agree with the findings.
--- NOTE | 2022-05-11 11:26 | WPDGIPROGNO ---
Progress Note: A&P Assessment and Plan (1) Abdominal pain: Code(s): R10.9 - Unspecified abdominal pain Status: Acute Assessment and Plan: the pain she states began Saturday. In other words that about that time she had her surgery. She suspects that is because she had not had a bowel movement for few days, and now going on a week. She occasionally uses laxatives for her bowels because she chronically is constipated but usually something like prune juice will be sufficient. 05/10/2022 pain is worse today. She is much more distended as well. 05/11/2022 less distended today . Not really having any pain. She is starting to get hungry. (2) Stercoral colitis: Code(s): K52.89 - Other specified noninfective gastroenteritis and colitis Status: Acute Assessment and Plan: This is the interpretation of her most recent CT scan. I have reviewed it and it does indeed show a large amount of stool in the rectum and sigmoid. (3) Fecal impaction: Code(s): K56.41 - Fecal impaction Status: Acute Assessment and Plan: As noted above, she has a significant impac tion. I explained that we can usually help with laxatives similar to a colonoscopy prep. I told her that in some cases we need to disimpact digitally. 05/10/2022 due to lack of success with laxatives, will remove impaction today with sedation. 05/11/2022 x-ray shows no impaction but still a significant amount of air in the colon. 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 I will continue Reglan 1 more day. I think she should be able to be discharged tomorrow (4) Anemia: Code(s): D64.9 - Anemia, unspecified Status: Acute Assessment and Plan: There is no evidence of active bleeding or acute blood loss. She states that she had not been seen blood in her urine, even after surgery. She has not had blood in her stools. To her knowledge she has never been treated for anemia in the past. We do not have blood counts from prior to this. (5) Bladder cancer: Code(s): C67.9 - Malignant neoplasm of bladder, unspecified Status: Acute Assessment and Plan: She had resection last Saturday. (6) Neurogenic bladder: Code(s): N31.9 - Neuromuscular dysfunction of bladder, unspecified Status: Chronic Assessment and Plan: This raises the question if whether not she could have some neuropathy involving her colon as well. There is not a megacolon seen on CT but she obviously does have chronic constipation although normally she can manage it at home fairly well with glycerin suppositories or prune juice 05/11/2022 due to chronic constipation I will keep her on Linzess. I explained to her that her constipation is likely due to colonic inertia, similar to the problem she has with her bladder.We may be able to reduce her dose but will send her home on 290 mcg Plan advanced diet. Anticipate discharge in the morning the morning. Dr. Hanley will be covering. I will be out of town through May 21 Subjective Date/time seen: 05/11/22 11:26 she is passing quite a bit of stool, mostly liquid. She feels much better. She is not having abdominal pain. Still feels somewhat bloated however. I had started her on Linzess and I told her that we would probably have her take this for a while at home. Exam Const: General: comfortable, alert and overweight Nutritional Appearance: overweight Orientation/consciousness: patient oriented x3 Resp: Auscultation: clear to auscultation bilaterally Cardio: Rhythm: regular rhythm GI: Inspection: distended and other ( mildly distended, less so than yesterday) GI Palp: Yes abdominal tenderness ( diffuse) Percussion: Yes tympanic to percussion Auscultation: normal bowel sounds Neuro: General: patient oriented x3 Objective Data Vital Signs Vital Signs: Vital Signs - 24 hr 05/10/22 12:51 05/10/22 13:58 05/10/22 14:09 Temperature 36.4
--- NOTE | 2022-05-11 12:55 | P.PNIM_ITS ---
Progress Note: A&P Assessment and Plan (1) Acute blood loss anemia: Code(s): D62 - Acute posthemorrhagic anemia Status: Acute Assessment and Plan: hgb 6 reportedly. Upon admission Hgb 7.6. she c/o dizziness and fatigue. H/O gross hematuria and 05/04 transurethral bladder tumor resection with Dr. Nugent. * MCV, MCH and MCHC within normal limits. * Given 1 unit PRBC with repeat Hgb 8.3. * Trend H/H. Transfuse if <7 mg/dL. * hemoccult stools. * Start ferrous sulfate 325 mg PO daily and vitamin C 500 mg PO daily for 6-8 weeks. * Iron panel not drawn prior to blood transfusion and would be inaccurate at this point. * Stable (2) Constipation: Code(s): K59.00 - Constipation, unspecified Status: Acute Assessment and Plan: Patient was having some abdominal discomfort 05/09. CT abdomen and pelvis showed constipation and fecal impaction. * GI consulted due to patient's anemia and abdominal pain * Patient not had a bowel movement in 8 days * Patient given laxatives per GI * 05/10/2022 lack of success with the laxatives and patient having fecal impaction with sedation. * 05/11/22 Patient doing well post operatively with no pain reported. Advancing diet as tolerated. (3) Gross hematuria: Code(s): R31.0 - Gross hematuria Status: Acute Assessment and Plan: s/p cystoscopy with clot evacuation, transurethral resection bladder tumor with biopsies. * Gross hematuria resolved on Saturday per patient. * consult Urology given patient had recent procedure * Resolved (4) Neurogenic bladder: Code(s): N31.9 - Neuromuscular dysfunction of bladder, unspecified Status: Chronic Assessment and Plan: Chronic, continue self catheterization (5) Hypertension: Code(s): I10 - Essential (primary) hypertension Status: Chronic Assessment and Plan: Chronic, continue coreg, amlodipine and lisinopril. Monitor vitals. (6) Abdominal pain: Code(s): R10.9 - Unspecified abdominal pain Status: Acute Assessment and Plan: Patient reported having abdominal pain 05/09/2022 * Patient states she has not had a bowel movement in approximately 7 days. Patient given MiraLax and Dulcolax p.r.n.. * Patient is still passing gas and has no history of abdominal surgeries. * Patient given Zofran for nausea. Patient with known reported vomiting. * Past CT abdomen pelvis revealed bladder mass and constipation. * Repeat CT abdomen pelvis positive for constipation * Consult GI due to abdominal pain and the anemia. (7) B12 deficiency: Code(s): E53.8 - Deficiency of other specified B group vitamins Status: Acute Assessment and Plan: patient's B12 found to be 239 and folate of 9.6. * Will give patient 1 1000 mcg B12 injection following 1000 mcg p.o. supplementation. (8) Fecal impaction: Code(s): K56.41 - Fecal impaction Status: Acute Assessment and Plan: see above Plan CODE STATUS: FULL CODE Disposition: from home, lives alone. PT/OT evaluation. Subjective Date/time seen: 05/11/22 12:55 Interval history: Patient resting in bed doing well today. Patient feels much better postoperatively and states that she is 0 abdominal pain and is having bowel movement
--- NOTE | 2022-05-11 12:55 | PM.IMPN ---
Progress Note: A&P Assessment and Plan (1) Acute blood loss anemia: Code(s): D62 - Acute posthemorrhagic anemia Status: Acute Assessment and Plan: hgb 6 reportedly. Upon admission Hgb 7.6. she c/o dizziness and fatigue. H/O gross hematuria and 05/04 transurethral bladder tumor resection with Dr. Nugent. MCV, MCH and MCHC within normal limits. Given 1 unit PRBC with repeat Hgb 8.3. Trend H/H. Transfuse if <7 mg/dL. hemoccult stools. Start ferrous sulfate 325 mg PO daily and vitamin C 500 mg PO daily for 6-8 weeks. Iron panel not drawn prior to blood transfusion and would be inaccurate at this point. Stable (2) Constipation: Code(s): K59.00 - Constipation, unspecified Status: Acute Assessment and Plan: Patient was having some abdominal discomfort 05/09. CT abdomen and pelvis showed constipation and fecal impaction. GI consulted due to patient's anemia and abdominal pain Patient not had a bowel movement in 8 days Patient given laxatives per GI 05/10/2022 lack of success with the laxatives and patient having fecal impaction with sedation. 05/11/22 Patient doing well post operatively with no pain reported. Advancing diet as tolerated. (3) Gross hematuria: Code(s): R31.0 - Gross hematuria Status: Acute Assessment and Plan: s/p cystoscopy with clot evacuation, transurethral resection bladder tumor with biopsies. Gross hematuria resolved on Saturday per patient. consult Urology given patient had recent procedure Resolved (4) Neurogenic bladder: Code(s): N31.9 - Neuromuscular dysfunction of bladder, unspecified Status: Chronic Assessment and Plan: Chronic, continue self catheterization (5) Hypertension: Code(s): I10 - Essential (primary) hypertension Status: Chronic Assessment and Plan: Chronic, continue coreg, amlodipine and lisinopril. Monitor vitals. (6) Abdominal pain: Code(s): R10.9 - Unspecified abdominal pain Status: Acute Assessment and Plan: Patient reported having abdominal pain 05/09/2022 Patient states she has not had a bowel movement in approximately 7 days. Patient given MiraLax and Dulcolax p.r.n.. Patient is still passing gas and has no history of abdominal surgeries. Patient given Zofran for nausea. Patient with known reported vomiting. Past CT abdomen pelvis revealed bladder mass and constipation. Repeat CT abdomen pelvis positive for constipation Consult GI due to abdominal pain and the anemia. (7) B12 deficiency: Code(s): E53.8 - Deficiency of other specified B group vitamins Status: Acute Assessment and Plan: patient's B12 found to be 239 and folate of 9.6. Will give patient 1 1000 mcg B12 injection following 1000 mcg p.o. supplementation. (8) Fecal impaction: Code(s): K56.41 - Fecal impaction Status: Acute Assessment and Plan: see above Plan CODE STATUS: FULL CODE Disposition: from home, lives alone. PT/OT evaluation. Subjective Date/time seen: 05/11/22 12:55 Interval history: Patient resting in bed doing well today. Patient feels much better postoperatively and states that she is 0 abdominal pain and is having bowel movements. She describes the bowel movements as watery and frequent. Patient denies nausea vomiting, body aches and chills and dizziness. Patient is advancing her diet slowly. Discussed with patient that daily MiraLax may be beneficial to avoid repeat impactions. Review of Systems Review of Systems: All systems reviewed & are unremarkable except as noted in HPI and below Exam Narrative: GENERAL: Comfortable, no acute distress HENMT: moist mucous membranes EYES: EOM intact b/l NECK: no lymphadenopathy RESPIRATORY: clear to auscultation CARDIO: RRR GI: Soft, nontender, bowel sounds x4
--- NOTE | 2022-05-11 14:11 | WPDANESPN ---
Anes - Prog Note Post-Op Date/Time: 05/11/22 14:11 Cardiovascular status: normal Respiratory status: normal Airway patency: baseline Mental status: baseline Post-Op hydration status: normal Vital Signs: Last Vital Signs Temp 37.2 C 05/11/22 06:09 Pulse 80 05/11/22 12:00 Resp 16 05/11/22 06:09 BP 125/60 05/11/22 06:09 Pulse Ox 90 05/11/22 06:09 O2 Del Method Room Air 05/11/22 08:25 Pain Score (VAS): 3 I/O: Intake & Output 05/10/22 05/11/22 05/11/22 23:59 07:59 15:59 Intake Total 400 1280 Output Total 350 500 300 Balance -350 -100 980 Laboratory Tests 05/11/22 05:15 05/10/22 05/11/22 05/11/22 18:03 05:13 05:15 WBC 5.3 RBC 3.32 L Hgb 8.8 L Hct 27.6 L MCV 83.1 MCH 26.5 MCHC 31.9 L RDW 15.6 H Plt Count 117 L MPV 9.3 Immature Gran % (Auto) 0.6 H Neut % (Auto) 67.0 Lymph % (Auto) 20.4 [place] % (Auto) 11.6 H Eos % (Auto) 0.2 Baso % (Auto) 0.2 Lymph # (Auto) 1.07 [place] # (Auto) 0.6 Eos # (Auto) 0.0 Baso # (Auto) 0.0 Abs Immat Gran (auto) 0.03 Absolute Neuts (auto) 3.5 Absolute Nucleated RBC 0.0 Nucleated RBC % 0.0 Sodium Potassium Chloride Carbon Dioxide Anion Gap BUN Creatinine Estim Creat Clear Calc Estimated GFR Glucose Calcium Magnesium 1.8 Total Bilirubin AST ALT Alkaline Phosphatase Total Protein Albumin Stl Occult Blood (IFOB) Negative 05/11/22 05/11/22 05:15 13:23 WBC RBC Hgb Hct MCV MCH MCHC RDW Plt Count MPV Immature Gran % (Auto) Neut % (Auto) Lymph % (Auto) [place] % (Auto) Eos % (Auto) Baso % (Auto) Lymph # (Auto) [place] # (Auto) Eos # (Auto) Baso # (Auto) Abs Immat Gran (auto) Absolute Neuts (auto) Absolute Nucleated RBC Nucleated RBC % Sodium 133 L Potassium 2.7 L* Pending Chloride 101 Carbon Dioxide 24 Anion Gap 8 BUN 22 H Creatinine 0.80 Estim Creat Clear Calc 53 Estimated GFR > 60 Glucose 114 H Calcium 8.2 L Magnesium Total Bilirubin 0.6 AST 25 ALT 17 Alkaline Phosphatase 59 Total Protein 6.0 L Albumin 3.3 L Stl Occult Blood (IFOB) Post-procedural complaints: none Patient Feedback: Patient satisfied with anesthetic care.
[2022-05-11 14:28] LABS: Potassium 2.7 mmol/L (3.4-5.0)
[2022-05-11] MEDS: POTASSIUM CHLORIDE 20 MEQ PACKET (FOR LIQUID) 80 MEQ PO (14:56)
[2022-05-11 20:12] LABS: Potassium 2.9 mmol/L (3.4-5.0)
[2022-05-12] VITALS (12 sets, daily range): BP systolic 126–150; BP diastolic 53–67; PULSE 62–73; RESP 16–18; TEMP 36.3–36.8; O2SAT 92–95
[2022-05-12] MEDS: METOCLOPRAMIDE HCL INJ 10 MG/2 ML VIAL IV PUSH ×4 (00:31→17:30)
[2022-05-12 06:13] LABS: Basophils Percent Auto 0.2 % (0.2-1.2); Eosinophils Absolute Auto 0.1 K/mm3 (0-0.3); Eosinophils Percent Auto 2.5 % (0-4.4); Hematocrit 26.7 % (37.0-47.0); Hemoglobin 8.5 g/dL (12.0-15.0); Immature Granulocyte Absolute 0.02 K/mm3 (0.00-0.031); Immature Granulocyte Percent A 0.4 % (0-0.5); Lymphocytes Absolute Auto 1.08 K/mm3 (0.9-3.2); Lymphocytes Percent Auto 22.4 % (18.3-44.2); Mean Corpuscular HGB Conc 31.8 g/dl (32-36); Mean Corpuscular Hemoglobin 26.4 pg (26-34); Mean Corpuscular Volume 82.9 fl (80-100); Mean Platelet Volume 9.7 fl (7.4-10.4); Monocytes Absolute Auto 0.7 K/mm3 (0.1-0.6); Monocytes Percent Auto 14.1 % (2.6-8.5); Neutrophils Absolute Auto 2.9 K/mm3 (1.3-6.7); Neutrophils Percent Auto 60.4 % (45.5-73.1); Platelet Count Result 110 k/mm3 (150-375); Red Blood Count 3.22 M/mm3 (4.2-5.4); Red Cell Distribution Width 15.7 % (11.5-14.5); White Blood Count 4.8 K/mm3 (4.5-10.0)
[2022-05-12 06:29] LABS: Alanine Aminotransferase 14 U/L (6-35); Albumin Level 3.1 g/dL (3.5-5.1); Alkaline Phosphatase 54 U/L (38-126); Anion Gap 5 mmol/L (8-16); Aspartate Amino Transferase 22 U/L (14-36); Bilirubin,Total 0.5 mg/dL (0.2-1.3); Blood Urea Nitrogen 16 mg/dL (7-17); Calcium 8.3 mg/dL (8.4-10.2); Carbon Dioxide 24 mmol/L (22-30); Chloride 108 mmol/L (98-107); Estimated CRCL calculation 53 ml/min; Estimated Glomerular Filt Rate > 60; Glucose 95 mg/dL (65-110); Potassium 2.7 mmol/L (3.4-5.0); Sodium 137 mmol/L (137-145)
[2022-05-12] MEDS: CEPHALEXIN 500 MG CAPSULE PO ×3 (06:33→21:29)
[2022-05-12] MEDS: LINACLOTIDE 145 MCG CAPSULE 290 MCG PO (06:33)
[2022-05-12] MEDS: FERROUS SULFATE 324 MG TABLET PO (08:26)
[2022-05-12] MEDS: ASCORBIC ACID 500 MG TABLET PO (08:27)
[2022-05-12] MEDS: amLODIPine BESYLATE 2.5 MG TABLET PO (08:27)
[2022-05-12] MEDS: BISACODYL 5 MG TABLET EC 10 MG PO (08:28)
[2022-05-12] MEDS: CYANOCOBALAMIN 1,000 MCG TABLET 1000 MCG PO (08:29)
[2022-05-12] MEDS: carvediloL 3.125 MG TABLET PO ×2 (08:29→21:28)
[2022-05-12] MEDS: PANTOPRAZOLE SODIUM IV 40 MG VIAL IV PUSH (08:30)
[2022-05-12] MEDS: OMEGA 3 POLYUNSAT FATTY ACIDS 1 GM CAP PO (08:30)
[2022-05-12] MEDS: polyethylene glycoL 3350 17 GM POWD.PACK PO (08:30)
[2022-05-12] MEDS: lisinopriL 20 MG TABLET 40 MG PO (08:30)
[2022-05-12] MEDS: POTASSIUM CHLORIDE 20 MEQ PACKET (FOR LIQUID) 80 MEQ PO (08:31)
[2022-05-12] MEDS: MAGNESIUM SULF 2 GM/WATER 50ML 2 GM/50 ML BAG IVPB (08:31)
--- NOTE | 2022-05-12 11:00 | P.PNIM_ITS ---
Progress Note: A&P Assessment and Plan (1) Acute blood loss anemia: Code(s): D62 - Acute posthemorrhagic anemia Status: Acute Assessment and Plan: hgb 6 reportedly. Upon admission Hgb 7.6. she c/o dizziness and fatigue. H/O gross hematuria and 05/04 transurethral bladder tumor resection with Dr. Nugent. * MCV, MCH and MCHC within normal limits. * Given 1 unit PRBC with repeat Hgb 8.3. * Trend H/H. Transfuse if <7 mg/dL. * hemoccult stools. * Start ferrous sulfate 325 mg PO daily and vitamin C 500 mg PO daily for 6-8 weeks. * Iron panel not drawn prior to blood transfusion and would be inaccurate at this point. * Stable (2) Constipation: Code(s): K59.00 - Constipation, unspecified Status: Acute Assessment and Plan: Patient was having some abdominal discomfort 05/09. CT abdomen and pelvis showed constipation and fecal impaction. * GI consulted due to patient's anemia and abdominal pain * Patient not had a bowel movement in 8 days * Patient given laxatives per GI * 05/10/2022 lack of success with the laxatives and patient having fecal impaction with sedation. * 05/11/22 Patient doing well post operatively with no pain reported. Advancing diet as tolerated. * 05/12/22 Patient is now experiencing diarrhea but abdominal pain has resolved. Tolerating diet well. (3) Gross hematuria: Code(s): R31.0 - Gross hematuria Status: Acute Assessment and Plan: s/p cystoscopy with clot evacuation, transurethral resection bladder tumor with biopsies. * Gross hematuria resolved on Saturday per patient. * consult Urology given patient had recent procedure * Resolved (4) Neurogenic bladder: Code(s): N31.9 - Neuromuscular dysfunction of bladder, unspecified Status: Chronic Assessment and Plan: Chronic, continue self catheterization (5) Hypertension: Code(s): I10 - Essential (primary) hypertension Status: Chronic Assessment and Plan: Chronic, continue coreg, amlodipine and lisinopril. Monitor vitals. (6) Abdominal pain: Code(s): R10.9 - Unspecified abdominal pain Status: Acute Assessment and Plan: Patient reported having abdominal pain 05/09/2022 * Patient states she has not had a bowel movement in approximately 7 days. Patient given MiraLax and Dulcolax p.r.n.. * Patient is still passing gas and has no history of abdominal surgeries. * Patient given Zofran for nausea. Patient with known reported vomiting. * Past CT abdomen pelvis revealed bladder mass and constipation. * Repeat CT abdomen pelvis positive for constipation * Consult GI due to abdominal pain and the anemia. Resolved, see above (7) B12 deficiency: Code(s): E53.8 - Deficiency of other specified B group vitamins Status: Acute Assessment and Plan: patient's B12 found to be 239 and folate of 9.6. * Will give patient 1 1000 mcg B12 injection following 1000 mcg p.o. supplementation. (8) Fecal impaction: Code(s): K56.41 - Fecal impaction Status: Acute Assessment and Plan: see above (9) Hypokalemia: Code(s): E87.6 - Hypokalemia Status: Acute Assessment and Plan: Patient found to have hypokalemia postoperatively on 05/11 * Potassium being replenished as needed * Patient
--- NOTE | 2022-05-12 11:00 | PM.IMPN ---
Progress Note: A&P Assessment and Plan (1) Acute blood loss anemia: Code(s): D62 - Acute posthemorrhagic anemia Status: Acute Assessment and Plan: hgb 6 reportedly. Upon admission Hgb 7.6. she c/o dizziness and fatigue. H/O gross hematuria and 05/04 transurethral bladder tumor resection with Dr. Nugent. MCV, MCH and MCHC within normal limits. Given 1 unit PRBC with repeat Hgb 8.3. Trend H/H. Transfuse if <7 mg/dL. hemoccult stools. Start ferrous sulfate 325 mg PO daily and vitamin C 500 mg PO daily for 6-8 weeks. Iron panel not drawn prior to blood transfusion and would be inaccurate at this point. Stable (2) Constipation: Code(s): K59.00 - Constipation, unspecified Status: Acute Assessment and Plan: Patient was having some abdominal discomfort 05/09. CT abdomen and pelvis showed constipation and fecal impaction. GI consulted due to patient's anemia and abdominal pain Patient not had a bowel movement in 8 days Patient given laxatives per GI 05/10/2022 lack of success with the laxatives and patient having fecal impaction with sedation. 05/11/22 Patient doing well post operatively with no pain reported. Advancing diet as tolerated. 05/12/22 Patient is now experiencing diarrhea but abdominal pain has resolved. Tolerating diet well. (3) Gross hematuria: Code(s): R31.0 - Gross hematuria Status: Acute Assessment and Plan: s/p cystoscopy with clot evacuation, transurethral resection bladder tumor with biopsies. Gross hematuria resolved on Saturday per patient. consult Urology given patient had recent procedure Resolved (4) Neurogenic bladder: Code(s): N31.9 - Neuromuscular dysfunction of bladder, unspecified Status: Chronic Assessment and Plan: Chronic, continue self catheterization (5) Hypertension: Code(s): I10 - Essential (primary) hypertension Status: Chronic Assessment and Plan: Chronic, continue coreg, amlodipine and lisinopril. Monitor vitals. (6) Abdominal pain: Code(s): R10.9 - Unspecified abdominal pain Status: Acute Assessment and Plan: Patient reported having abdominal pain 05/09/2022 Patient states she has not had a bowel movement in approximately 7 days. Patient given MiraLax and Dulcolax p.r.n.. Patient is still passing gas and has no history of abdominal surgeries. Patient given Zofran for nausea. Patient with known reported vomiting. Past CT abdomen pelvis revealed bladder mass and constipation. Repeat CT abdomen pelvis positive for constipation Consult GI due to abdominal pain and the anemia. Resolved, see above (7) B12 deficiency: Code(s): E53.8 - Deficiency of other specified B group vitamins Status: Acute Assessment and Plan: patient's B12 found to be 239 and folate of 9.6. Will give patient 1 1000 mcg B12 injection following 1000 mcg p.o. supplementation. (8) Fecal impaction: Code(s): K56.41 - Fecal impaction Status: Acute Assessment and Plan: see above (9) Hypokalemia: Code(s): E87.6 - Hypokalemia Status: Acute Assessment and Plan: Patient found to have hypokalemia postoperatively on 05/11 Potassium being replenished as needed Patient having diarrhea which is likely contributing to hypokalemia. Discontinuation of patient's stool softeners will hopefully aid in this. Plan CODE STATUS: FULL CODE Disposition: from home, lives alone. PT/OT evaluation. Subjective Date/time seen: 05/12/22 11:00 Interval history: Patient up to the chair and doing. Patient still having diarrhea which is likely contributing to her hypokalemia. Patient's abdominal pain hands improved and she is no longer having any nausea. Patient should be able to be discharged soon once potassium is stabilized. Revestevan
[2022-05-12 11:57] LABS: Potassium 3.9 mmol/L (3.4-5.0)
[2022-05-13] VITALS (12 sets, daily range): BP systolic 134–155; BP diastolic 56–65; PULSE 62–81; RESP 16; TEMP 36.4–36.9; O2SAT 94–96
[2022-05-13 05:46] LABS: Basophils Percent Auto 0.4 % (0.2-1.2); Eosinophils Absolute Auto 0.2 K/mm3 (0-0.3); Eosinophils Percent Auto 3.6 % (0-4.4); Hematocrit 26.1 % (37.0-47.0); Hemoglobin 8.2 g/dL (12.0-15.0); Immature Granulocyte Absolute 0.04 K/mm3 (0.00-0.031); Immature Granulocyte Percent A 0.9 % (0-0.5); Lymphocytes Absolute Auto 1.21 K/mm3 (0.9-3.2); Lymphocytes Percent Auto 27.1 % (18.3-44.2); Mean Corpuscular HGB Conc 31.4 g/dl (32-36); Mean Corpuscular Volume 82.9 fl (80-100); Mean Platelet Volume 9.4 fl (7.4-10.4); Monocytes Absolute Auto 0.6 K/mm3 (0.1-0.6); Monocytes Percent Auto 14.3 % (2.6-8.5); Neutrophils Absolute Auto 2.4 K/mm3 (1.3-6.7); Neutrophils Percent Auto 53.7 % (45.5-73.1); Platelet Count Result 109 k/mm3 (150-375); Red Blood Count 3.15 M/mm3 (4.2-5.4); Red Cell Distribution Width 15.7 % (11.5-14.5); White Blood Count 4.5 K/mm3 (4.5-10.0)
[2022-05-13] MEDS: LINACLOTIDE 145 MCG CAPSULE 290 MCG PO (05:58)
[2022-05-13] MEDS: METOCLOPRAMIDE HCL INJ 10 MG/2 ML VIAL IV PUSH ×3 (05:58→17:59)
[2022-05-13] MEDS: CEPHALEXIN 500 MG CAPSULE PO ×3 (05:58→21:12)
[2022-05-13 06:02] LABS: Alanine Aminotransferase 14 U/L (6-35); Albumin Level 3.1 g/dL (3.5-5.1); Alkaline Phosphatase 54 U/L (38-126); Anion Gap 5 mmol/L (8-16); Aspartate Amino Transferase 18 U/L (14-36); Bilirubin,Total 0.4 mg/dL (0.2-1.3); Blood Urea Nitrogen 15 mg/dL (7-17); Calcium 8.1 mg/dL (8.4-10.2); Carbon Dioxide 20 mmol/L (22-30); Chloride 111 mmol/L (98-107); Estimated CRCL calculation 69 ml/min; Estimated Glomerular Filt Rate > 60; Glucose 111 mg/dL (65-110); Potassium 2.8 mmol/L (3.4-5.0); Sodium 136 mmol/L (137-145)
[2022-05-13 06:40] LABS: Magnesium 1.9 mg/dL (1.6-2.3)
[2022-05-13] MEDS: POTASSIUM CHLORIDE 20 MEQ PACKET (FOR LIQUID) 80 MEQ PO (09:03)
[2022-05-13] MEDS: amLODIPine BESYLATE 2.5 MG TABLET PO (09:06)
[2022-05-13] MEDS: FERROUS SULFATE 324 MG TABLET PO (09:06)
[2022-05-13] MEDS: ASCORBIC ACID 500 MG TABLET PO (09:07)
[2022-05-13] MEDS: carvediloL 3.125 MG TABLET PO ×2 (09:08→21:13)
[2022-05-13] MEDS: CYANOCOBALAMIN 1,000 MCG TABLET 1000 MCG PO (09:08)
[2022-05-13] MEDS: lisinopriL 20 MG TABLET 40 MG PO (09:09)
[2022-05-13] MEDS: OMEGA 3 POLYUNSAT FATTY ACIDS 1 GM CAP PO (09:09)
[2022-05-13] MEDS: PANTOPRAZOLE SODIUM IV 40 MG VIAL IV PUSH (09:10)
--- NOTE | 2022-05-13 14:21 | PM.IMPN ---
Progress Note: A&P Assessment and Plan (1) Acute blood loss anemia: Code(s): D62 - Acute posthemorrhagic anemia Status: Acute Assessment and Plan: hgb 6 reportedly. Upon admission Hgb 7.6. she c/o dizziness and fatigue. H/O gross hematuria and 05/04 transurethral bladder tumor resection with Dr. Nugent. MCV, MCH and MCHC within normal limits. Given 1 unit PRBC with repeat Hgb 8.3. Trend H/H. Transfuse if <7 mg/dL. hemoccult stools. Start ferrous sulfate 325 mg PO daily and vitamin C 500 mg PO daily for 6-8 weeks. Iron panel not drawn prior to blood transfusion and would be inaccurate at this point. Stable (2) Constipation: Code(s): K59.00 - Constipation, unspecified Status: Acute Assessment and Plan: Patient was having some abdominal discomfort 05/09. CT abdomen and pelvis showed constipation and fecal impaction. GI consulted due to patient's anemia and abdominal pain Patient not had a bowel movement in 8 days Patient given laxatives per GI 05/10/2022 lack of success with the laxatives and patient having fecal impaction with sedation. 05/11/22 Patient doing well post operatively with no pain reported. Advancing diet as tolerated. 05/12/22 Patient is now experiencing diarrhea but abdominal pain has resolved. Tolerating diet well. (3) Gross hematuria: Code(s): R31.0 - Gross hematuria Status: Acute Assessment and Plan: s/p cystoscopy with clot evacuation, transurethral resection bladder tumor with biopsies. Gross hematuria resolved on Saturday per patient. consult Urology given patient had recent procedure Resolved (4) Neurogenic bladder: Code(s): N31.9 - Neuromuscular dysfunction of bladder, unspecified Status: Chronic Assessment and Plan: Chronic, continue self catheterization (5) Hypertension: Code(s): I10 - Essential (primary) hypertension Status: Chronic Assessment and Plan: Chronic, continue coreg, amlodipine and lisinopril. Monitor vitals. (6) Abdominal pain: Code(s): R10.9 - Unspecified abdominal pain Status: Acute Assessment and Plan: Patient reported having abdominal pain 05/09/2022 Patient states she has not had a bowel movement in approximately 7 days. Patient given MiraLax and Dulcolax p.r.n.. Patient is still passing gas and has no history of abdominal surgeries. Patient given Zofran for nausea. Patient with known reported vomiting. Past CT abdomen pelvis revealed bladder mass and constipation. Repeat CT abdomen pelvis positive for constipation Consult GI due to abdominal pain and the anemia. Resolved, see above (7) B12 deficiency: Code(s): E53.8 - Deficiency of other specified B group vitamins Status: Acute Assessment and Plan: patient's B12 found to be 239 and folate of 9.6. Will give patient 1 1000 mcg B12 injection following 1000 mcg p.o. supplementation. (8) Fecal impaction: Code(s): K56.41 - Fecal impaction Status: Acute Assessment and Plan: see above (9) Hypokalemia: Code(s): E87.6 - Hypokalemia Status: Acute Assessment and Plan: Patient found to have hypokalemia postoperatively on 05/11 Potassium being replenished as needed Patient having diarrhea which is likely contributing to hypokalemia. Discontinuation of patient's stool softeners will hopefully aid in this. 4/2Continue be hypokalemic. Recheck labs in the morning. Plan CODE STATUS: FULL CODE Disposition: from home, lives alone. PT/OT evaluation. Subjective Date/time seen: 05/13/22 14:21 Interval history: Patient is doing well today. Patient's potassium this morning was 2.8. Replenish potassium as needed and will recheck labs in the morning. Patient is still having some diarrhea but has improved since yesterday. Patien
[2022-05-14] VITALS: PULSE 70
[2022-05-14 04:00] VITALS: PULSE 70
[2022-05-14 06:00] VITALS: BP 140/75; PULSE 73; RESP 18; TEMP 36.9; O2SAT 96
[2022-05-14] MEDS: CEPHALEXIN 500 MG CAPSULE PO (06:01)
[2022-05-14] MEDS: METOCLOPRAMIDE HCL INJ 10 MG/2 ML VIAL IV PUSH (06:01)
[2022-05-14] MEDS: LINACLOTIDE 145 MCG CAPSULE 290 MCG PO (06:01)
[2022-05-14 06:04] LABS: Hematocrit 26.8 % (37.0-47.0); Hemoglobin 8.5 g/dL (12.0-15.0); Mean Corpuscular HGB Conc 31.7 g/dl (32-36); Mean Corpuscular Hemoglobin 26.4 pg (26-34); Mean Corpuscular Volume 83.2 fl (80-100); Mean Platelet Volume 9.7 fl (7.4-10.4); Platelet Count Result 111 k/mm3 (150-375); Red Blood Count 3.22 M/mm3 (4.2-5.4); White Blood Count 4.9 K/mm3 (4.5-10.0)
[2022-05-14 06:18] LABS: Alanine Aminotransferase 13 U/L (6-35); Alkaline Phosphatase 58 U/L (38-126); Anion Gap 7 mmol/L (8-16); Aspartate Amino Transferase 18 U/L (14-36); Bilirubin,Total 0.4 mg/dL (0.2-1.3); Blood Urea Nitrogen 13 mg/dL (7-17); Calcium 7.7 mg/dL (8.4-10.2); Carbon Dioxide 21 mmol/L (22-30); Chloride 109 mmol/L (98-107); Estimated CRCL calculation 82 ml/min; Estimated Glomerular Filt Rate > 60; Glucose 113 mg/dL (65-110); Magnesium 1.6 mg/dL (1.6-2.3); Potassium 3.1 mmol/L (3.4-5.0); Sodium 137 mmol/L (137-145)
[2022-05-14] MEDS: POTASSIUM CHLORIDE 20 MEQ TABLET 60 MEQ PO (07:45)
[2022-05-14 08:00] VITALS: PULSE 70
[2022-05-14 09:01] VITALS: PULSE 81
[2022-05-14] MEDS: ASCORBIC ACID 500 MG TABLET PO (09:01)
[2022-05-14] MEDS: CYANOCOBALAMIN 1,000 MCG TABLET 1000 MCG PO (09:01)
[2022-05-14] MEDS: amLODIPine BESYLATE 2.5 MG TABLET PO (09:01)
[2022-05-14] MEDS: FERROUS SULFATE 324 MG TABLET PO (09:01)
[2022-05-14] MEDS: carvediloL 3.125 MG TABLET PO (09:01)
[2022-05-14] MEDS: lisinopriL 20 MG TABLET 40 MG PO (09:02)
[2022-05-14] MEDS: OMEGA 3 POLYUNSAT FATTY ACIDS 1 GM CAP PO (09:02)
[2022-05-14 12:00] VITALS: PULSE 72
[2022-05-14 12:18] LABS: Potassium 3.6 mmol/L (3.4-5.0)
--- NOTE | 2022-05-14 12:26 | PM.DS ---
DS: Admitting Diagnosis Discharge Date 05/14/22 Admitting Diagnosis anemia DS: Discharge Diagnosis Discharge Diagnosis (1) Acute blood loss anemia: Code(s): D62 - Acute posthemorrhagic anemia Status: Acute (2) Constipation: Code(s): K59.00 - Constipation, unspecified Status: Acute (3) Gross hematuria: Code(s): R31.0 - Gross hematuria Status: Acute (4) Neurogenic bladder: Code(s): N31.9 - Neuromuscular dysfunction of bladder, unspecified Status: Chronic (5) Hypertension: Code(s): I10 - Essential (primary) hypertension Status: Chronic (6) Abdominal pain: Code(s): R10.9 - Unspecified abdominal pain Status: Acute (7) B12 deficiency: Code(s): E53.8 - Deficiency of other specified B group vitamins Status: Acute (8) Fecal impaction: Code(s): K56.41 - Fecal impaction Status: Acute (9) Hypokalemia: Code(s): E87.6 - Hypokalemia Status: Acute DS: Summary Hospital Course Reason for hospitalization: anemia, fecal impaction, hypokalemia Hospital Course: This is an 81-year-old female that presented to the emergency department on 05/07/2022 a chief complaint of feeling lightheaded, weak and shaky. Patient had been having hematuria urea after having a bladder mass removed by Urology. At the time of presentation the hematuria had stopped but that is when the patient began having symptoms of lightheadedness and weakness. the reports of patient having hemoglobin of 6 and urology office but upon admission patient's hemoglobin was 7.6. due to symptoms patient was transfused with 1 unit of PRBCs and repeat hemoglobin was 8.3. Patient was started on a iron supplement and vitamin-C supplement daily. Urology consulted and patient underwent cystoscopy with clot evacuation. During the procedure there was no evidence of active bleeding. Patient did not require another transfusion and anemia likely due to hematuria after patient underwent urology procedure removing her bladder mass. When patient was evaluated she was found to have abdominal pain and nausea. Patient stated that she had not had bowel movement in approximately a week. Patient has a history of constipation but typically has bowel movements every 3-4 days. GI was consulted due to abdominal pain on top of being anemic. CT abdomen pelvis revealed constipation present. Patient was found to have severe fecal impaction. She was started on a laxatives per GI. Laxatives did not resolve patient's constipation and she was taken into surgery to have fecal disimpaction done under sedation. Patient started having diarrhea after this procedure was performed and had a low potassium likely due to the diarrhea. Patient's potassium was replenished as needed. Diarrhea subsided after a couple days and potassium improved. Potassium on discharge 3.6. Discussed this with patient and she is comfortable with going home and having labs rechecked and approximately 1 week with follow-up with her primary care provider. Advised patient that if constipation does return 80 daily MiraLax would be beneficial. Patient's hemoglobin and hematocrit stable on discharge. Time Spent with Patient Time attestation: Total time spent providing and/or coordinating discharge services: Exam Narrative: GENERAL: Comfortable, no acute distress HENMT: moist mucous membranes EYES: EOM intact b/l NECK: no lymphadenopathy RESPIRATORY: clear to auscultation CARDIO: RRR GI: soft, nontender, bowel sounds present SKIN: no rashes EXTREMITIES: no edema, redness or tenderness DS: Data Data Completed and Pending Labs on day of discharge: Labs from last 24 hours 05/14/22 05/14/22 05/14/22 11:50 05:38 05:38 WBC 4.9 RBC 3.22 L Hgb 8.5 L Hct 26.8 L MCV 83.2 MCH 26.4 MCHC 31.7 L RDW 16.0 H Plt Count 111 L MPV 9.7 Sodium 137 Potassium 3.6 3.1 L Chloride 109 H
--- NOTE | 2022-05-14 13:01 | PCCCNOTE ---
On 05/14/22, the student, [Mariana Moraes ], provided care and completed [facility] documentation on this patient. I have reviewed the student's documentation and agree with the findings.
[2022-05-14] MEDS: POTASSIUM CHLORIDE 20 MEQ TABLET 40 MEQ PO (13:16)
== END 2022-05-14 14:09 | disposition home or self-care (01) | DRG 812 ==
LOC: ANHED 05-08 00:04 → ANH2MED 05-08 00:49
PROVIDERS: Emergency Medicine; Internal Medicine; Internal Medicine Gastroenterology; Nurse Practitioner Family; Admitting Provider Internal Medicine; Emergency Provider Emergency Medicine; PCP Physician Assistant; Visit Provider Internal Medicine Critical Care Medicine
DX: D62 Acute posthemorrhagic anemia (principal); R31.0 Gross hematuria; N31.9 Neuromuscular dysfunction of bladder, unspecified; I10 Essential (primary) hypertension; R10.9 Unspecified abdominal pain; E53.8 Deficiency of other specified B group vitamins; K56.41 Fecal impaction; E87.6 Hypokalemia; Z87.891 Personal history of nicotine dependence; Z88.5 Allergy status to narcotic agent
CPT/HCPCS: 36415; 36430; 74018; 74176; 76857; 80053; 81001; 82274; 82607; 82746; 83735; 84132; 85014; 85018; 85025; 85027; 86850; 86900; 86901; 86920; 87086; 93005; 96360; 96361; 96372; 96374; 96375; 96376; 97161; 97165; 99285; A9270; C9113; G0378; J2405; J2704; J2765; J3420; J3475; J7030; J7040; J7050; J7120; P9016

== ENCOUNTER 2022-07-26 15:40 | Inpatient (IN) | payer OTHER, MEDICARE, SELFPAY ==
--- NOTE | ~2022-07-26 | CT_ITS ---
EXAMINATION: CT guide nephro tube pl LT DATE: 07/30/2022 14:26 INDICATION: Left hydronephrosis due to obstruction from a recurrent bladder tumor. TECHNIQUE: The procedure including the risks and benefits was discussed with the patient. Risks discu ssed included bleeding and infection. The patient understood the risks and benefits and agreed to pro ceed. The patient was confirmed to be receiving appropriate antibiotic coverage. The skin overlying the left kidney was prepped and draped in usual sterile fashion. Anesthetic was administered with 1% lidocaine subcutaneously. An 18 gauge trochar needle was inserted into a total calyx of the kidney u nder CT guidance. The needle was exchanged over a wire for 6 Uruguayan, 8 Uruguayan and 9 [place]ruguayan dilators a nd then for an 8.5 [place]ruguayan pigtail catheter under CT guidance. The wire was removed and the catheter w as stitched to the skin. Antibiotic management and a sterile dressing were applied. An additional adh esive fixation device was applied. The dose-length product was 184.95 mGy-cm. There were no immediate complications. FINDINGS: CT images demonstrate the nephrostomy tube in the left renal pelvis. Following decompressio n of the left renal collecting system there is excretion of more dense contrast seen within the now d ecompressed calyces of the left kidney. IMPRESSION: 1. Successful CT-guided left nephrostomy tube placement]. Reviewed, dictated and finalized at location A.
--- NOTE | ~2022-07-26 | CT_ITS ---
EXAMINATION: CT abdomen pelvis wo/w con DATE: 07/28/2022 09:39 INDICATION: Recent bladder tumor removal. Recurrent urinary tract infections. Hematuria. TECHNIQUE: Computed tomography (CT) of the abdomen and pelvis was performed without and subsequently with 130 CC Omnipaque 350 intravenous contrast. Automated exposure control and iterative reconstructi on technique were employed. Exam dose: 2208.90 mGy-cm total exam DLP. COMPARISON: 05/11/2022 KUB 05/09/2022 CT abdomen pelvis FINDINGS: The lung bases are clear No pericardial or pleural effusion. Small sliding hiatal hernia. The gallbladder is present. No bile duct or pancreatic duct dilatation. No hepatic, splenic, pancreat ic, and adrenal or right renal space-occupying mass lesion is evident. There are at least 2 left renal cysts, the largest exophytic, measuring up to 2.2 cm. There is delayed excretion of contrast material by the left kidney and severe left hydroureteronephro sis, with obstruction of the distal left ureter at the ureterovesical junction where there is evidenc e of severe soft tissue thickening of the urinary bladder wall. Prominent soft tissue mass at the pro state and urinary bladder area may be due to prostate and/or urinary bladder urothelial malignancy. There is a Rodriguez catheter within the urinary bladder. There is thickening of much of the wall of the urinary bladder. Prominent amount of fecal material in the rectosigmoid area with some pneumatosis of the rectosigmoid area suggesting stercoral colitis, improved since 05/09/2022. No bowel obstruction or intraperitoneal free air is detected. Bilateral fat-containing inguinal hernias. Very small fat-containing umbilical hernia. Degenerative changes of the thoracic and lumbar spine including degenerative change at the apophyseal joints with associated grade 1 anterolisthesis at L4-5. Bilateral hip osteoarthritis. No suspicious osteolytic or osteoblastic lesions are noted. IMPRESSION: Prominent abnormal soft tissue thickening in the region of the prostate and urinary bladder consisten t with prostate and/or urothelial malignancy. Urological consultation is recommended There is associated obstruction of the left ureterovesical junction and prominent left hydroureterone phrosis, delayed excretion of contrast material and left Left renal cysts Small sliding hiatal hernia Stercoral colitis, rectosigmoid area, improved since 05/09/2022 Reviewed, dictated and finalized at Location A. Reviewed, dictated and finalized at location A. IMPRESSION: Prominent abnormal soft tissue thickening in the region of the prostate and uri nary bladder consistent with prostate and/or urothelial malignancy. Urological consultation is recommended There is associated obstruction of the left ureterovesical junction and promine nt left hydroureteronephrosis, delayed excretion of contrast material and left Left renal cysts Small sliding hiatal hernia Stercoral colitis, rectosigmoid area, improved since 05/09/2022
[2022-07-26 16:00] VITALS: BP 187/80; PULSE 77; RESP 18; TEMP 36.3; O2SAT 100
--- NOTE | 2022-07-26 16:39 | PC.NURSE ---
This patient, Nydia Goldman, was admitted to [facility] Surg Room 331-02. Patient/family oriented to hospital policies and general routines including ID bracelet, bed and alarms, visiting hours, pain management, procedures, bathroom and other care routines, personal items, smoking policy, room service/diet, and visiting hours. Patient arrived on floor at 1540. Information on how to activate the Rapid Response Team has been discussed. Patient/Family are encouraged to report perceived risks to care and to ask questions if they do not understand what they are told or what they should do.
--- NOTE | 2022-07-26 16:39 | PM.IMHP ---
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 The patient was seen by Dr. Nugent in the office today. The patient stated that she self [place] and noticed that she has been having some hematuria. The patient has atonic bladder and does self catheterize herself. In the office today the patient had a flex cystoscopy and a very large clot made it very difficult to evaluate her bladder. Most the clots were evacuated today. The patient stated that she is not currently having any bleeding at all. The patient appears to have some metaplastic changes in the dome of the bladder. The patient was directly admitted from urology office. She is admitted observation status on 07/26/2022 Review of Systems Review of Systems: All systems reviewed & are unremarkable except as noted in HPI and below Constitutional: Constitutional: Reports as per HPI and Reports no additional constitutional complaints Eyes: Eyes: Reports as per HPI and Reports no additional eye complaints ENT: Reports system reviewed and no additional complaints, except as documented and Reports Normal hearing present Cardiovascular: Cardiovascular: Reports no additional cardiovascular complaints Respiratory: Respiratory: Reports no additional respiratory complaints and Reports no additional respiratory complaints Gastrointestinal: Gastrointestinal: Reports as per HPI and Reports no additional gastrointestinal complaints Musculoskeletal: Musculoskeletal: Reports no additional musculoskeletal complaints Integumentary/Breasts: Skin/Breast: Reports system reviewed and no additional complaints, except as docu and Reports as per HPI Neurologic: Reports system reviewed and no additional complaints, except as documented, Reports as per HPI and Reports Normal hearing present Psychiatric: Psychiatric: Reports no additional psychiatric complaints and Reports as per HPI Endocrine: Endocrine: Reports no additional endocrine complaints Hematologic/Lymphatic: Hematologic/Lymphatic: Reports no additional hematologic/lymphatic complaints Allergic/Immunologic: Allergic/Immunologic: Reports no additional allergic/immunologic complaints PMFSH Past Medical History Medical History Hx of recurrent urinary tract infection Hypertension Neurogenic bladder Surgical History Surgical History (Updated 07/26/22 @ 20:56 by Carmen Brown NP) H/O hysterectomy for benign disease Hx of cataract extraction S/P cystoscopy S/P total knee arthroplasty Bilateral Family History Family History Mother Hx of heart surgery Cerebrovascular accident Family history of arthritis Family history of mental disorder Hypertension Father Family history of alcoholism Grandparent Family history of arthritis Social History Social History (Updated 07/26/22 @ 20:55 by Carmen Brown NP) Social History: The patient is and has 2 children. The patient continues to work at a bank. Lifelong nonsmoker does does not use any alcohol marijuana or illicit drugs. Code status full code Smoking status: Never smoker Smoking end date: 02/12/1964 Alcohol intake: never Substance use: never Substance use type: does not use Lack of Transportation: No Lack of Food: Never True Current Housing: I Have Housing Concerned About Future Housing: No Difficulty Paying Gas/Electric Bills: No Difficulty Paying for Meds: No Currently Unemployed: No Education: High School Diploma/GED Difficulty w/ Childcare or Family Care: No Living arrangements: with family Gender identity (if verbalized by the patient): Female Spiritual care concerns: No Meds Home Medications and James
[2022-07-26 16:42] VITALS: BMI 31.5
--- NOTE | 2022-07-26 16:44 | WPDURCON ---
Assessment and Plan Assessment and plan (1) History of bladder cancer: Code(s): Z85.51 - Personal history of malignant neoplasm of bladder Status: Acute Assessment and Plan: Patient for evaluation possible anemia due to significant hematuria. Plans for cystoscopy with clot evacuation and possible TURBT with Dr. Horton made for tomorrow morning Urology Consult Note HPI Date Seen: 07/26/22 Requesting Physician: Iam Kendrick MD Primary Care Provider: Katie Meyer, PA Consult Narrative Narrative: Nydia Goldman is a 81 year old female known to me with history of high-grade superficial bladder cancer 1st diagnosed in April 2022. Because of generalized debility we opted against adjuvant intravesical BCG therapy, instead deciding surveillance cystoscopy. She has an atonic bladder was having difficulty emptying with intermittent self catheterization. Additionally, she complained of GS generalized fatigue without lightheadedness or chest pain. In the office, earlier today, performed flexible cystoscopy. She had a very large clot which made reliable evaluation of her bladder difficult. I evacuated most, but not all, of the clot. There does appear to be some metaplastic changes in the dome of the bladder and perhaps an area of neoplastic change near the anterior dome. Review of Systems Constitutional: Constitutional: Denies chills, Reports fatigue, Denies fever(s) and Reports weakness Cardiovascular: Cardiovascular: Denies chest pain, Denies lightheadedness, Denies palpitations and Denies dyspnea Respiratory: Respiratory: Denies dyspnea Gastrointestinal: Gastrointestinal: Denies diarrhea, Denies nausea and Denies vomiting Genitourinary: Genitourinary: Reports hematuria, Reports nocturia and Denies dysuria Endocrine: Endocrine: Denies palpitations PMFSH Past Medical History Medical History Hx of recurrent urinary tract infection Hypertension Neurogenic bladder Surgical History Surgical History H/O hysterectomy for benign disease Family History Family History Other Cerebrovascular accident Family history of alcoholism Family history of arthritis Family history of mental disorder Hypertension Social History Social History Smoking status: Former smoker Smoking end date: 02/12/1964 Alcohol intake: never Substance use: never Lack of Transportation: No Lack of Food: Never True Current Housing: I Have Housing Concerned About Future Housing: No Difficulty Paying Gas/Electric Bills: No Difficulty Paying for Meds: No Currently Unemployed: No Education: High School Diploma/GED Difficulty w/ Childcare or Family Care: No Living arrangements: with family Gender identity (if verbalized by the patient): Female Spiritual care concerns: No Meds Home Medications and Allergies Home Medications Medication Instructions Recorded Confirmed Type alprazolam 0.5 mg tablet 0.5 mg PO PRN PRN Anxiety 05/02/22 05/08/22 History amlodipine 2.5 mg tablet 2.5 mg PO DAILY 05/02/22 05/08/22 History carvedilol 3.125 mg tablet 3.125 mg PO BID 05/02/22 05/08/22 History cholecalciferol (vitamin D3) 100 100 mcg PO DAILY 05/02/22 05/08/22 History mcg (4,000 unit) tablet lisinopril 40 mg tablet 40 mg PO DAILY 05/02/22 05/08/22 History omega-3 fatty acids 1,000 mg PO DAILY 05/02/22 05/08/22 History cephalexin 500 mg capsule 500 mg PO Q8H #9 caps 05/04/22 05/08/22 Rx tramadol 50 mg tablet 50 mg PO Q6H PRN pain #20 tabs 05/04/22 05/08/22 Rx ascorbic acid (vitamin C) 500 mg 500 mg PO DAILY #30 tabs 05/14/22 Rx tablet (Vitamin C) cyanocobalamin (vitamin B-12) 1,000 mcg PO QAM #30 tabs 05/14/22 Rx 1,000 mcg tablet (Vitamin B-12) ferrous sulfate 3
[2022-07-26 17:25] LABS: Basophils Percent Auto 0.3 % (0.2-1.2); Eosinophils Absolute Auto 0.2 K/mm3 (0-0.3); Eosinophils Percent Auto 2.1 % (0-4.4); Hemoglobin 10.7 g/dL (12.0-15.0); Immature Granulocyte Absolute 0.05 K/mm3 (0.00-0.031); Immature Granulocyte Percent A 0.6 % (0-0.5); Lymphocytes Absolute Auto 1.08 K/mm3 (0.9-3.2); Lymphocytes Percent Auto 12.4 % (18.3-44.2); Mean Corpuscular HGB Conc 31.5 g/dl (32-36); Mean Corpuscular Hemoglobin 26.4 pg (26-34); Mean Corpuscular Volume 83.7 fl (80-100); Mean Platelet Volume 9.4 fl (7.4-10.4); Monocytes Absolute Auto 0.7 K/mm3 (0.1-0.6); Monocytes Percent Auto 7.8 % (2.6-8.5); Neutrophils Absolute Auto 6.7 K/mm3 (1.3-6.7); Neutrophils Percent Auto 76.8 % (45.5-73.1); Platelet Count Result 275 k/mm3 (150-375); Red Blood Count 4.06 M/mm3 (4.2-5.4); Red Cell Distribution Width 16.9 % (11.5-14.5); White Blood Count 8.7 K/mm3 (4.5-10.0)
[2022-07-26 17:32] LABS: Partial Thromboplastin Time 26.7 SECONDS (22.3-36.8); Prothrombin Time 14.2 Seconds (11.1-14.7)
[2022-07-26 17:33] LABS: Lactic Acid Reflex 1.1 mmol/L (0.7-2.0)
[2022-07-26 17:36] LABS: Alanine Aminotransferase 14 U/L (6-35); Albumin Level 4.1 g/dL (3.5-5.1); Alkaline Phosphatase 70 U/L (38-126); Anion Gap 7 mmol/L (8-16); Aspartate Amino Transferase 25 U/L (14-36); Bilirubin,Total 0.2 mg/dL (0.2-1.3); Blood Urea Nitrogen 31 mg/dL (7-17); Calcium 9.5 mg/dL (8.4-10.2); Carbon Dioxide 26 mmol/L (22-30); Chloride 103 mmol/L (98-107); Estimated CRCL calculation 36 ml/min; Estimated Glomerular Filt Rate 43; Glucose 98 mg/dL (65-110); Sodium 136 mmol/L (137-145)
[2022-07-26 17:49] LABS: Erythrocyte Sedimentation Rate 45 mm/hr (0-20)
[2022-07-26] MEDS: SODIUM CHLORIDE 0.9% IV 1,000 ML 100 ML IV CONT (18:11)
[2022-07-26 20:00] VITALS: PULSE 74
[2022-07-26 21:48] VITALS: BP 150/59; PULSE 65; RESP 16; TEMP 36.2; O2SAT 98
[2022-07-26] MEDS: amLODIPine BESYLATE 2.5 MG TABLET PO (23:26)
[2022-07-26] MEDS: carvediloL 3.125 MG TABLET PO (23:26)
[2022-07-26] MEDS: CIPROFLOXACIN 500 MG TAB PO (23:26)
[2022-07-27] VITALS (19 sets, daily range): BP systolic 128–169; BP diastolic 65–78; PULSE 63–79; RESP 12–21; TEMP 36.3–36.8; O2SAT 95–100
[2022-07-27 01:17] LABS: Hematocrit 29.4 % (37.0-47.0); Hemoglobin 9.4 g/dL (12.0-15.0)
[2022-07-27] MEDS: SODIUM CHLORIDE 0.9% IV 1,000 ML 100 ML IV CONT (04:55)
[2022-07-27 06:21] LABS: Basophils Percent Auto 0.5 % (0.2-1.2); Eosinophils Absolute Auto 0.1 K/mm3 (0-0.3); Eosinophils Percent Auto 2.3 % (0-4.4); Hematocrit 29.5 % (37.0-47.0); Hemoglobin 9.3 g/dL (12.0-15.0); Immature Granulocyte Absolute 0.03 K/mm3 (0.00-0.031); Immature Granulocyte Percent A 0.5 % (0-0.5); Lymphocytes Absolute Auto 0.93 K/mm3 (0.9-3.2); Lymphocytes Percent Auto 15.1 % (18.3-44.2); Mean Corpuscular HGB Conc 31.5 g/dl (32-36); Mean Corpuscular Hemoglobin 26.6 pg (26-34); Mean Corpuscular Volume 84.3 fl (80-100); Mean Platelet Volume 9.5 fl (7.4-10.4); Monocytes Absolute Auto 0.6 K/mm3 (0.1-0.6); Monocytes Percent Auto 8.9 % (2.6-8.5); Neutrophils Absolute Auto 4.5 K/mm3 (1.3-6.7); Neutrophils Percent Auto 72.7 % (45.5-73.1); Platelet Count Result 240 k/mm3 (150-375); Red Cell Distribution Width 17.2 % (11.5-14.5); White Blood Count 6.2 K/mm3 (4.5-10.0)
[2022-07-27 06:31] LABS: Anion Gap 3 mmol/L (8-16); Blood Urea Nitrogen 26 mg/dL (7-17); Calcium 8.6 mg/dL (8.4-10.2); Carbon Dioxide 27 mmol/L (22-30); Chloride 106 mmol/L (98-107); Estimated CRCL calculation 39 ml/min; Estimated Glomerular Filt Rate 48; Glucose 92 mg/dL (65-110); Magnesium 1.7 mg/dL (1.6-2.3); Potassium 4.1 mmol/L (3.4-5.0); Sodium 136 mmol/L (137-145)
--- NOTE | 2022-07-27 06:38 | WPDANESEPPF ---
Anes - Initial Pre Proc Eval Procedure: Operation Date: 07/27/22 08:30 Proposed Procedures p Cystoscopy, Evacuation of Bladder Clots, - Jere Horton MD s Possible Trans Urethral Resection Bladder Tumor - Jere Horton MD Date/Time: 07/27/22 06:38 Surgeon: Iam Kendrick MD Pre Op Diagnosis: Hemuturia Patient Data Age: 81 Gender: F Height: 1.65 m Weight: 86 kg Last Vital Signs Temp 36.4 C L 07/27/22 04:00 Pulse 78 07/27/22 04:00 Resp 16 07/27/22 04:00 BP 152/70 H 07/27/22 04:00 Pulse Ox 100 07/27/22 04:00 O2 Del Method Room Air 07/26/22 20:00 Allergies Allergy/AdvReac Type Severity Reaction Status Date / Time hydrocodone Allergy Mild DISORIENTAT Verified 07/26/22 17:05 ION diazepam Allergy Unknown disorientat Verified 07/26/22 17:05 ion Home Medications Medication Instructions Recorded Confirmed Type alprazolam 0.5 mg tablet 0.5 mg PO PRN PRN Anxiety 05/02/22 07/26/22 History amlodipine 2.5 mg tablet 2.5 mg PO HS 05/02/22 07/26/22 History carvedilol 3.125 mg tablet 3.125 mg PO BID 05/02/22 07/26/22 History cholecalciferol (vitamin D3) 100 5,000 mcg PO DAILY 05/02/22 07/26/22 History mcg (4,000 unit) tablet lisinopril 40 mg tablet 40 mg PO DAILY 05/02/22 07/26/22 History cyanocobalamin (vitamin B-12) 1,000 mcg PO QAM #30 tabs 05/14/22 07/26/22 Rx 1,000 mcg tablet (Vitamin B-12) ascorbic acid (vitamin C) 500 mg 1,000 mg PO DAILY 07/26/22 07/26/22 History tablet (Vitamin C) ciprofloxacin 500 mg/5 mL oral 500 mg PO BID 07/26/22 07/26/22 History suspension ferrous sulfate 325 mg (65 mg 325 mg PO DAILY@0800 07/26/22 07/26/22 History iron) tablet omega 1-ygq-mxv-fish oil 1,200 mg 1 cap PO DAILY 07/26/22 07/27/22 History (144 mg-216 mg) capsule (Fish Oil) cephalexin 500 mg capsule 500 mg PO Q12H prophalyxis after 07/31/22 Rx procedure #6 caps Laboratory Tests 07/26/22 07/26/22 07/27/22 17:05 17:06 00:38 WBC 8.7 K/mm3 (4.5-10.0) RBC 4.06 L M/mm3 (4.2-5.4) Hgb 10.7 L g/dL 9.4 L g/dL (12.0-15.0) (12.0-15.0) Hct 34.0 L % 29.4 L % (37.0-47.0) (37.0-47.0) MCV 83.7 fl (80-100) MCH 26.4 pg (26-34) MCHC 31.5 L g/dl (32-36) RDW 16.9 H % (11.5-14.5) Plt Count 275 D k/mm3 (150-375) MPV 9.4 fl (7.4-10.4) Immature Gran % (Auto) 0.6 H % (0-0.5) Neut % (Auto) 76.8 H % (45.5-73.1) Lymph % (Auto) 12.4 L % (18.3-44.2) Stephens % (Auto) 7.8 % (2.6-8.5) Eos % (Auto) 2.1 % (0-4.4) Baso % (Auto) 0.3 % (0.2-1.2) Lymph # (Auto) 1.08 K/mm3 (0.9-3.2) Stephens # (Auto) 0.7 H K/mm3 (0.1-0.6) Eos # (Auto) 0.2 K/mm3 (0-0.3) Baso # (Auto) 0.0 K/mm3 (0.0-0.1) Abs Immat Gran (auto) 0.05 H K/mm3 (0.00-0.031) Absolute Neuts (auto) 6.7 K/mm3 (1.3-6.7) Absolute Nucleated RBC 0.0 K/mm3 (0.0-0.012) Nucleated RBC % 0.0 % (0.0-0.2) ESR 45 H mm/hr (0-20) PT 14.2 Seconds (11.1-14.7) INR 1.0 APTT 26.7 SECONDS (22.3-36.8) Sodium 136 L mmol/L (137-145) Potassium 4.0 mmol/L (3.4-5.0) Chloride 103 mmol/L (98-107) Carbon Dioxide 26 mmol/L (22-30) Anion Gap 7 L mmol/L (8-16) BUN 31 H D mg/dL (7-17) Creatinine 1.20 H mg/dL (0.7-1.0) Estim Creat Clear Calc 36 ml/min Estimated GFR 43 L (59 - ) Glucose 98 mg/dL (65-110) Lactic Acid 1.1 mmol/L (0.7-2.0) Calcium 9.5 mg/dL (8.4-10.2) Magnesium 2.0 mg/dL (1.6-2.3) Total Bilirubin 0.2 mg/dL (0.2-1.3) AST 25 U/L (14-36) ALT 14 U/L (6-35) Alkaline Phosphatase 70 U/L (38-126) Total Protein 7.0 g/dL
--- NOTE | 2022-07-27 07:15 | WPDHPUPDATE1 ---
History and Physical Update Update Date/Time: 07/27/22 07:15 History and Physical has been reviewed, including an updated exam of the patient. There are NO changes in the patient's condition. Risks, benefits, and alternatives have been discussed and questions answered. Patient agrees to proceed with procedure. Proceed with cysto, clot evacuation, possible turbt
--- NOTE | 2022-07-27 07:40 | PC.NURSE ---
To OR via bed.
[2022-07-27] MEDS: LACTATED RINGERS 1,000 ML 30 ML IV CONT ×2 (07:56→11:19)
[2022-07-27] MEDS: ceFAZolin SODIUM 1 GM VIAL IV PUSH (08:59)
[2022-07-27] MEDS: LIDOCAINE HCL 2% GEL UROJET 10 ML PKG MUCOUS MEM (10:00)
--- NOTE | 2022-07-27 11:11 | P.OP_ITS ---
Procedure Note - Detailed Date of Procedure 07/27/22 Pre-op Diagnosis Hemuturia Post-op Diagnosis Same (Recurrent large bladder tumor mass) Procedure Performed Cystoscopy, clot evacuation, transurethral section of bladder tumor Surgeon Jere Horton MD Anesthesia General Description of Procedure Patient is taken to the operative suite correctly identified. Once anesthesia was obtained she was placed in dorsal lithotomy position and prepped draped usual sterile fashion. A 24 Frisian resectoscope sheath was inserted in the bladder. The urethral opening is obstructed from a very large mass. There was some clots in there which we evacuated out. Reinspection reveals that it almost the entire bladder neck area and urethra is involved with the tumor that is extending all along the left lateral wall anterior wall and floor the bladder. She also has irregularity near the dome. We resected this mass for approximately 1-1/2-2 hours. I would say that we have at least half of it removed but she still has quite a bit residual. I do not think this is going to be a resectable lesion. I was unable to identify any ureteral orifices at this time. We used a rollerball to fulgurate the mass. 2% viscous lidocaine was inserted urethra to 24 three-way was placed. This connected to continuous blad sarah irrigations patient is taken recovery stable condition. There where that they may need a return trip to the OR if things clot off or decision will need to be made of we resecting further tissue versus cystectomy at some point. CT scan will be obtained to evaluate further. If her creatinine worsens or hydro develops she most likely will need nephrostomy tubes is I could not visualize orifice he is due to the mass. This completes dictation. Please send a copy to my office. Estimated Blood Loss 25 Drains Yes Packing No Pathology Yes Complications No immediate complications Condition Stable Disposition PACU
--- NOTE | 2022-07-27 11:29 | PM.IMPN ---
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 - known source of bleeding. Monitor hematuria s/p partial TURBT and now with continuous bladder irrigation. - Transfuse for hemoglobin less than 7 g/dl. - Currently taking ascorbic acid 1000 mg daily with ferrous sulfate 325 mg PO daily. (2) Bladder cancer: Qualifiers: Bladder location: unspecified site Qualified Code(s): C67.9 - Malignant neoplasm of bladder, unspecified Code(s): C67.9 - Malignant neoplasm of bladder, unspecified Status: Acute Assessment and Plan: Follows with Dr. Nugent for known bladder cancer diagnosed in April 2022. -S/P partial TURBT today with Dr Horton. According to the post-op note, it was a very difficult resection in which only part of the tumor was able to be removed. Clots were removed and inspection revealed the mass travels almost the entire bladder neck area with urethra involvement. It also extends along the left lateral wall, anterior wall, and floor of the bladder with irregularity noted near the dome. -Carrera catheter placed for CBI -May need a second surgery for TURBT or discussion of cystectomy. -Monitor for worsening Cr and signs of hydronephrosis. -Tramadol 50 mg PO q 6 hours for pain - Continue IV fluids at 100 ml per hour until patient is tolerating a diet (3) Gross hematuria: Code(s): R31.0 - Gross hematuria Status: Acute Assessment and Plan: Hematuria upon admission with known clots in bladder. -Transfuse if hemoglobin less than 7 g/dl. (4) Neurogenic bladder: Code(s): N31.9 - Neuromuscular dysfunction of bladder, unspecified Status: Chronic Assessment and Plan: Patient normally self-caths at home but currently has carrera catheter for CBI. -Carrera care per hospital protocol -Maintain catheter until direction from Urology to remove (5) Hypertension: Qualifiers: Hypertension type: primary hypertension Qualified Code(s): I10 - Essential (primary) hypertension Code(s): I10 - Essential (primary) hypertension Status: Chronic Assessment and Plan: Blood pressure has been maintained this admission 150s/70s with HR 70's. -Resumed home medications with amlodipine 2.5 mg PO HS, carvedilol 3.125 mg PO BID, and lisinopril 40 mg PO daily. (6) Hx of recurrent urinary tract infection: Code(s): Z87.440 - Personal history of urinary (tract) infections Status: Acute Assessment and Plan: Chronic UTI with antibiotic prophylaxis -Taking daily Ciprofloxacin 500 mg PO BID Subjective Date/time seen: 07/27/22 11:29 Interval history: This is a pleasant 81 year old female who is status post TURBT today. She initially presented to the hospital from her Urologist's office after a cystoscopy found large clot burden. She has a PMH of a recent bladder cancer diagnosis in 04/2022, neurogenic bladder for which she self caths, chronic UTIs on prophylaxis, HTN, anxiety, and anemia. She was recently hospitalized in April of this year for anemia for which she received a blood transfusion and was started on PO iron/vitamin C. I spoke with her and her daughter at the bedside after she returned from PACU. She is drowsy but responds to my questions appropriately. At this time she complains of back pain which she contributes to OR positioning. Prior to coming into the hospital she was feeling well besides having difficulty with self catheterization and hematuria, which is what prompted her to see her Urologist. She denies dizziness or feeling faint w
--- NOTE | 2022-07-27 11:55 | SUR.PHASEI ---
Simple mask removed at 1155.
[2022-07-27] MEDS: ONDANSETRON INJ 4 MG/2 ML VIAL IV PUSH ×2 (13:06→18:38)
[2022-07-27 13:33] LABS: Hematocrit 32.4 % (37.0-47.0); Hemoglobin 10.2 g/dL (12.0-15.0)
[2022-07-27] MEDS: traMADol HCL (*CRX) 50 MG TABLET PO (13:53)
[2022-07-27] MEDS: CYANOCOBALAMIN 1,000 MCG TABLET 1000 MCG PO (13:55)
[2022-07-27] MEDS: ASCORBIC ACID 500 MG TABLET 1000 MG PO (13:55)
[2022-07-27] MEDS: lisinopriL 20 MG TABLET 40 MG PO (13:55)
[2022-07-27] MEDS: CHOLECALCIFEROL 1,000 UNITS TABLET 4000 UNITS PO (13:55)
[2022-07-27] MEDS: CIPROFLOXACIN 500 MG TAB PO (13:56)
[2022-07-27] MEDS: carvediloL 3.125 MG TABLET PO ×2 (13:56→20:25)
[2022-07-27] MEDS: amLODIPine BESYLATE 2.5 MG TABLET PO (20:25)
[2022-07-28] VITALS (10 sets, daily range): BP systolic 118–152; BP diastolic 49–77; PULSE 54–87; RESP 14–18; TEMP 36.4–36.8; O2SAT 98–100
[2022-07-28] MEDS: CIPROFLOXACIN 500 MG TAB PO ×3 (00:27→21:09)
[2022-07-28] MEDS: ONDANSETRON INJ 4 MG/2 ML VIAL IV PUSH (00:27)
[2022-07-28 06:47] LABS: Basophils Percent Auto 0.5 % (0.2-1.2); Eosinophils Percent Auto 0.2 % (0-4.4); Hematocrit 30.1 % (37.0-47.0); Hemoglobin 9.4 g/dL (12.0-15.0); Immature Granulocyte Absolute 0.04 K/mm3 (0.00-0.031); Immature Granulocyte Percent A 0.5 % (0-0.5); Lymphocytes Absolute Auto 0.99 K/mm3 (0.9-3.2); Lymphocytes Percent Auto 11.6 % (18.3-44.2); Mean Corpuscular HGB Conc 31.2 g/dl (32-36); Mean Corpuscular Hemoglobin 26.9 pg (26-34); Mean Corpuscular Volume 86.2 fl (80-100); Mean Platelet Volume 9.4 fl (7.4-10.4); Monocytes Absolute Auto 0.8 K/mm3 (0.1-0.6); Neutrophils Absolute Auto 6.7 K/mm3 (1.3-6.7); Neutrophils Percent Auto 78.2 % (45.5-73.1); Platelet Count Result 206 k/mm3 (150-375); Red Blood Count 3.49 M/mm3 (4.2-5.4); Red Cell Distribution Width 17.1 % (11.5-14.5); White Blood Count 8.5 K/mm3 (4.5-10.0)
[2022-07-28 07:01] LABS: Albumin Level 3.3 g/dL (3.5-5.1); Anion Gap 3 mmol/L (8-16); Blood Urea Nitrogen 20 mg/dL (7-17); Calcium 8.3 mg/dL (8.4-10.2); Carbon Dioxide 26 mmol/L (22-30); Chloride 106 mmol/L (98-107); Estimated CRCL calculation 39 ml/min; Estimated Glomerular Filt Rate 48; Glucose 95 mg/dL (65-110); Phosphorus 4.2 mg/dL (2.5-4.5); Potassium 4.3 mmol/L (3.4-5.0); Sodium 135 mmol/L (137-145)
[2022-07-28] MEDS: ASCORBIC ACID 500 MG TABLET 1000 MG PO (10:59)
[2022-07-28] MEDS: FERROUS SULFATE 324 MG TABLET PO (10:59)
[2022-07-28] MEDS: CHOLECALCIFEROL 1,000 UNITS TABLET 4000 UNITS PO (10:59)
[2022-07-28] MEDS: CYANOCOBALAMIN 1,000 MCG TABLET 1000 MCG PO (10:59)
[2022-07-28] MEDS: carvediloL 3.125 MG TABLET PO ×2 (11:00→21:08)
[2022-07-28] MEDS: lisinopriL 20 MG TABLET 40 MG PO (11:00)
[2022-07-28] MEDS: polyethylene glycoL 3350 17 GM POWD.PACK PO (11:03)
--- NOTE | 2022-07-28 11:10 | PM.IMPN ---
Progress Note: A&P Assessment and Plan (1) Bladder cancer: Qualifiers: Bladder location: unspecified site Qualified Code(s): C67.9 - Malignant neoplasm of bladder, unspecified Code(s): C67.9 - Malignant neoplasm of bladder, unspecified Status: Acute (2) Constipation: Code(s): K59.00 - Constipation, unspecified Status: Acute (3) Anemia: Qualifiers: Anemia type: other cause Other causes of anemia: chronic disease, neoplastic Qualified Code(s): D63.0 - Anemia in neoplastic disease Code(s): D64.9 - Anemia, unspecified Status: Acute (4) Acute blood loss anemia: Code(s): D62 - Acute posthemorrhagic anemia Status: Acute (5) Hypertension: Qualifiers: Hypertension type: primary hypertension Qualified Code(s): I10 - Essential (primary) hypertension Code(s): I10 - Essential (primary) hypertension Status: Chronic (6) Neurogenic bladder: Code(s): N31.9 - Neuromuscular dysfunction of bladder, unspecified Status: Chronic Plan Anemia? secondary? to? bladder? neoplasm? and? subsequent? hematuria - hemoglobin 9.4->9.3->10.2->9.4 today. Continue to monitor. - known? source? of? bleeding.? Monitor hematuria? s/p partial TURBT and? now with continuous? bladder? irrigation. - Transfuse? for hemoglobin ? less than 7 g/dl.? - Currently taking ascorbic acid 1000 mg daily with ferrous sulfate 325 mg PO daily. Bladder Cancer -S/P POD [address] Horton. According to the post-op note, it was a very difficult resection in which only part of the tumor was able to be removed. Clots were removed and inspection revealed the mass travels almost the entire bladder neck area with urethra involvement. It also extends along the left lateral wall, anterior wall, and floor of the bladder with irregularity noted near the dome. -Carrera catheter placed for CBI -May need a second surgery for TURBT or discussion of cystectomy. -Monitor for worsening Cr and signs of hydronephrosis. Cr remains stable at 1.10 -CT abdomen and pelvis done today. Awaiting results. -Tramadol 50 mg PO q 6 hours for pain Hematuria -Hematuria upon admission with known clots in bladder. -Transfuse if hemoglobin less than 7 g/dl. Neurogenic bladder -Patient normally self-caths at home but currently has carrera catheter for CBI. -Carrera care per hospital protocol -Maintain catheter until direction from Urology to remove? HTN: -Blood pressure has been maintained this admission 150s/70s with HR 70's. -Resumed home medications with amlodipine 2.5 mg PO HS, carvedilol 3.125 mg PO BID, and lisinopril 40 mg PO daily. Recurrent UTI -with antibiotic prophylaxis -Taking daily Ciprofloxacin 500 mg PO BID Subjective Date/time seen: 07/28/22 11:10 Interval history: This is a pleasant 81 year old female who is status post TURBT today. She initially presented to the hospital from her Urologist's office after a cystoscopy found large clot burden. She has a PMH of a recent bladder cancer diagnosis in 04/2022, neurogenic bladder for which she self caths, chronic UTIs on prophylaxis, HTN, anxiety, and anemia. She was recently hospitalized in April of this year for anemia for which she received a blood transfusion and was started on PO iron/vitamin C. I spoke with her and her daughter at the bedside after she returned from PACU. She is drowsy but responds to my questions appropriately. At this time she complains of back pain which she contributes to OR positioning. Prior to coming into the hospital she was feeling well besides having difficulty with self catheterization and hematuria, which is what prompted her to see her Urologist. She denies dizziness or feeling faint with ambulation or position changes. No other complaints at this time. Interval history: 07/28: Patient seen this morning in bed and appears upset. I inquired about how she was feeling and see starts to cry. She is o
--- NOTE | 2022-07-28 11:28 | WPDUROPN2 ---
Progress Note: A&P Assessment and Plan (1) Bladder cancer: Qualifiers: Bladder location: unspecified site Qualified Code(s): C67.9 - Malignant neoplasm of bladder, unspecified Code(s): C67.9 - Malignant neoplasm of bladder, unspecified Status: Acute Assessment and Plan: Recurrent bladder cancer is present. Await pathology results from resection yesterday (2) Gross hematuria: Code(s): R31.0 - Gross hematuria Status: Acute Assessment and Plan: - improving after tumor resection and clot evacuation - Keep Catheter in place. Patient performs CIC and given recent resection and amount of tumor present, CIC will not be successful - OK to keep CBI off, but monitor for recurrence of bleeding as she starts to ambulate. Please restart CBI for any new hematuria. (3) Hydronephrosis: Code(s): N13.30 - Unspecified hydronephrosis Status: Acute Assessment and Plan: - left hydronephrosis is present due to obstruction from the bladder tumor. - She will need a left PCN placed by interventional radiology. Dr. Horton was not able to visualize either ureter orifice due to the size of the tumor. - The PCN placement is not emergent, but would ideally be done during this admission Subjective Subjective Date/Time Seen: 07/28/22 11:28 Interval history: She had a TURBT by Dr. Horton for control of bleeding yesterday. Her Hgb is stable. Creatinine is stable at 1.1. Her CBI is off, and the urine is mostly clear. She had a CT scan this AM. I reviewed the images. There is a large bladder mass. It causes left hydronephrosis. Exam Const: General: cooperative, healthy appearing and comfortable Resp: Effort & Inspection: normal respiratory effort : Other: Rodriguez catheter in place Psych: Mental Status: mental status grossly normal Speech and movement: Normal speech and movement present Objective Data Vital Signs Vital Signs: Vital Signs - 24 hr 07/27/22 11:30 07/27/22 11:45 07/27/22 12:00 Temperature Pulse Rate 74 75 79 Respiratory Rate 18 19 17 Blood Pressure 158/70 H 159/71 H 164/73 H Pulse Oximetry 100 100 98 Oxygen Delivery Simple Face Mask Simple Face Mask Room Air Oxygen Flow Rate 10 10 07/27/22 12:15 07/27/22 12:35 07/27/22 12:50 Temperature 36.4 C 36.4 C Pulse Rate 75 75 72 Respiratory Rate 21 H 16 16 Blood Pressure 163/70 H 163/71 H 153/70 H Pulse Oximetry 100 99 98 Oxygen Delivery Room Air Oxygen Flow Rate 07/27/22 13:56 07/27/22 13:20 07/27/22 14:20 Temperature 36.4 C 36.5 C Pulse Rate 74 74 75 Respiratory Rate 16 16 Blood Pressure 155/78 H 161/72 H Pulse Oximetry 99 99 Oxygen Delivery Oxygen Flow Rate 07/27/22 16:00 07/27/22 16:00 07/27/22 21:01 Temperature 36.4 C Pulse Rate 73 72 Respiratory Rate 12 Blood Pressure 152/71 H Pulse Oximetry 99 95 Oxygen Delivery Room Air Oxygen Flow Rate 07/27/22 20:00 07/27/22 21:00 07/28/22 00:00 Temperature 36.6 C 36.6 C Pulse Rate 63 62 Respiratory Rate 18 16 Blood Pressure 128/65 119/56 L Pulse Oximetry 98 98 Oxygen Delivery Room Air Oxygen Flow Rate 07/27/22 20:00 07/28/22 00:00 07/28/22 04:00 Temperature Pulse Rate 68 56 L 54 L Respiratory Rate Blood Pressure Pulse Oximetry Oxygen Delivery Oxygen Flow Rate 07/28/22 04:00 07/28/22 08:00 07/28/22 08:00 Temperature 36.4 C 36.6 C Pulse Rate 59 L 63 62 Respiratory Rate 16 18 Blood Pressure 125/74 150/56 H Pulse Oximetry 99 100 Oxygen Delivery Oxygen Flow Rate 07/28/22 11:00 Temperature Pulse Rate 72 Respiratory Rate Blood Pressure Pulse Oximetry Oxygen Delivery Oxygen Flow Rate Intake/Output Intake/Output: Intake & Output 07/25/22 07/26/22 07/27/22 07/28/22 23:59 23:59 23:59 23:59 Intake Total 053 1180 340 Output Total 7914 2612 Balance 466 -0809 -2715 Meds/Results Medications: Active Medications G
--- NOTE | 2022-07-28 13:38 | WPDANESPN ---
Anes - Prog Note Post-Op Date/Time: 07/28/22 13:38 Cardiovascular status: normal Respiratory status: normal Airway patency: baseline Mental status: baseline Post-Op hydration status: normal Vital Signs: Last Vital Signs Temp 36.6 C 07/28/22 08:00 Pulse 72 07/28/22 11:00 Resp 18 07/28/22 08:00 BP 150/56 H 07/28/22 08:00 Pulse Ox 100 07/28/22 08:00 O2 Del Method Room Air 07/27/22 21:01 O2 Flow Rate 10 07/27/22 11:45 Pain Score (VAS): 03/23 I/O: Intake & Output 07/27/22 07/28/22 07/28/22 23:59 07:59 15:59 Intake Total 1100 100 480 Output Total 550 1425 Balance 550 -1325 480 Laboratory Tests 07/28/22 06:15 07/28/22 06:15 07/27/22 07/28/22 13:21 06:15 WBC 8.5 RBC 3.49 L Hgb 10.2 L 9.4 L Hct 32.4 L 30.1 L MCV 86.2 MCH 26.9 MCHC 31.2 L RDW 17.1 H Plt Count 206 MPV 9.4 Immature Gran % (Auto) 0.5 Neut % (Auto) 78.2 H Lymph % (Auto) 11.6 L [place] % (Auto) 9.0 H Eos % (Auto) 0.2 Baso % (Auto) 0.5 Lymph # (Auto) 0.99 [place] # (Auto) 0.8 H Eos # (Auto) 0.0 Baso # (Auto) 0.0 Abs Immat Gran (auto) 0.04 H Absolute Neuts (auto) 6.7 Absolute Nucleated RBC 0.0 Nucleated RBC % 0.0 Sodium 135 L Potassium 4.3 Chloride 106 Carbon Dioxide 26 Anion Gap 3 L BUN 20 H Creatinine 1.10 H Estim Creat Clear Calc 39 Estimated GFR 48 L Glucose 95 Calcium 8.3 L Phosphorus 4.2 Albumin 3.3 L Post-procedural complaints: none Patient Feedback: Patient satisfied with anesthetic care.
[2022-07-28] MEDS: amLODIPine BESYLATE 2.5 MG TABLET PO (21:09)
[2022-07-29] VITALS (11 sets, daily range): BP systolic 150–171; BP diastolic 64–75; PULSE 60–99; RESP 14–18; TEMP 36.7–36.8; O2SAT 95–98
[2022-07-29 06:42] LABS: Basophils Percent Auto 0.4 % (0.2-1.2); Eosinophils Absolute Auto 0.1 K/mm3 (0-0.3); Eosinophils Percent Auto 1.3 % (0-4.4); Hemoglobin 9.5 g/dL (12.0-15.0); Immature Granulocyte Absolute 0.04 K/mm3 (0.00-0.031); Immature Granulocyte Percent A 0.6 % (0-0.5); Lymphocytes Absolute Auto 0.92 K/mm3 (0.9-3.2); Lymphocytes Percent Auto 13.4 % (18.3-44.2); Mean Corpuscular HGB Conc 31.7 g/dl (32-36); Mean Corpuscular Hemoglobin 26.9 pg (26-34); Monocytes Absolute Auto 0.6 K/mm3 (0.1-0.6); Monocytes Percent Auto 9.3 % (2.6-8.5); Neutrophils Absolute Auto 5.2 K/mm3 (1.3-6.7); Platelet Count Result 208 k/mm3 (150-375); Red Blood Count 3.53 M/mm3 (4.2-5.4); Red Cell Distribution Width 17.4 % (11.5-14.5); White Blood Count 6.9 K/mm3 (4.5-10.0)
[2022-07-29 06:58] LABS: Anion Gap 3 mmol/L (8-16); Blood Urea Nitrogen 19 mg/dL (7-17); Calcium 8.9 mg/dL (8.4-10.2); Carbon Dioxide 27 mmol/L (22-30); Chloride 105 mmol/L (98-107); Estimated CRCL calculation 36 ml/min; Estimated Glomerular Filt Rate 43; Glucose 90 mg/dL (65-110); Magnesium 1.7 mg/dL (1.6-2.3); Potassium 3.7 mmol/L (3.4-5.0); Sodium 135 mmol/L (137-145)
--- NOTE | 2022-07-29 07:48 | PM.IMPN ---
Progress Note: A&P Assessment and Plan (1) Bladder cancer: Qualifiers: Bladder location: unspecified site Qualified Code(s): C67.9 - Malignant neoplasm of bladder, unspecified Code(s): C67.9 - Malignant neoplasm of bladder, unspecified Status: Acute (2) Constipation: Qualifiers: Constipation type: unspecified constipation type Qualified Code(s): K59.00 - Constipation, unspecified Code(s): K59.00 - Constipation, unspecified Status: Acute (3) Anemia: Qualifiers: Anemia type: other cause Other causes of anemia: chronic disease, neoplastic Qualified Code(s): D63.0 - Anemia in neoplastic disease Code(s): D64.9 - Anemia, unspecified Status: Acute (4) Acute blood loss anemia: Code(s): D62 - Acute posthemorrhagic anemia Status: Acute (5) Hypertension: Qualifiers: Hypertension type: primary hypertension Qualified Code(s): I10 - Essential (primary) hypertension Code(s): I10 - Essential (primary) hypertension Status: Chronic (6) Neurogenic bladder: Code(s): N31.9 - Neuromuscular dysfunction of bladder, unspecified Status: Chronic Plan Anemia? secondary? to? bladder? neoplasm? and? subsequent? hematuria - hemoglobin 9.4->9.3->10.2->9.4--> 9.5 today. Continue to monitor. - known? source? of? bleeding.? Monitor hematuria? s/p partial TURBT. - Transfuse? for hemoglobin ? less than 7 g/dl.? - Currently taking ascorbic acid 1000 mg daily with ferrous sulfate 325 mg PO daily. Bladder Cancer -S/P POD [address] Horton. According to the post-op note, it was a very difficult resection in which only part of the tumor was able to be removed. Clots were removed and inspection revealed the mass travels almost the entire bladder neck area with urethra involvement. It also extends along the left lateral wall, anterior wall, and floor of the bladder with irregularity noted near the dome. -Rodriguez catheter remains -May need a second surgery for TURBT or discussion of cystectomy. -Monitor for worsening Cr and signs of hydronephrosis. Cr today 1.2 -CT abdomen and pelvis done today. Prominent soft tissue thickening in the region of the urinary bladder consistent with malignancy. Associated obstruction of the left ureterovesical junctional and prominent left hydroureteronephrosis, left renal cyst. PCN placement tomorrow 07/30. NPO at MD. -Tramadol 50 mg PO q 6 hours for pain -Diagnosis related anxiety and insomnia. Recommend using prn alprazolam 0.5 mg PO PRN. Will also add melatonin 5 mg PO prn for insomnia. Hematuria -Hematuria upon admission with known clots in bladder. -Transfuse if hemoglobin less than 7 g/dl. Neurogenic bladder -Patient normally self-caths at home but currently has Rodriguez catheter. -Rodriguez care per hospital protocol -Maintain catheter until direction from Urology to remove? HTN: -Blood pressure has been consistently on the high side this admission 150s/70s with HR 70's. I was hesitant to increase her antihypertensives because of her hematuria. I wanted to see if her Hgb leveled off post-op. Will increase amlodipine to 5 mg PO daily. -Resumed home medications with amlodipine 2.5 mg PO HS, carvedilol 3.125 mg PO BID, and lisinopril 40 mg PO daily. -Will increase amlodipine to 5 mg PO daily. Recurrent UTI -with antibiotic prophylaxis -Taking daily Ciprofloxacin 500 mg PO BID Subjective Date/time seen: 07/29/22 07:48 Interval history: This is a pleasant 81 year old female who is status post TURBT today. She initially presented to the hospital from her Urologist's office after a cystoscopy found large clot burden. She has a PMH of a recent bladder cancer diagnosis in 04/2022, neurogenic bladder for which she self caths, chronic UTIs on prophylaxis, HTN, anxiety, and anemia. She was recently hospitalized in April of this year for anemia for which she received a blood transfusion and w
[2022-07-29] MEDS: ASCORBIC ACID 500 MG TABLET 1000 MG PO (08:01)
[2022-07-29] MEDS: carvediloL 3.125 MG TABLET PO ×2 (08:02→20:02)
[2022-07-29] MEDS: lisinopriL 20 MG TABLET 40 MG PO (08:02)
[2022-07-29] MEDS: CHOLECALCIFEROL 1,000 UNITS TABLET 4000 UNITS PO (08:02)
[2022-07-29] MEDS: polyethylene glycoL 3350 17 GM POWD.PACK PO (08:02)
[2022-07-29] MEDS: CYANOCOBALAMIN 1,000 MCG TABLET 1000 MCG PO (08:02)
[2022-07-29] MEDS: FERROUS SULFATE 324 MG TABLET PO (08:02)
[2022-07-29] MEDS: CIPROFLOXACIN 500 MG TAB PO ×2 (08:02→20:02)
--- NOTE | 2022-07-29 12:14 | WPDUROPN2 ---
Progress Note: A&P Assessment and Plan (1) Bladder cancer: Qualifiers: Bladder location: unspecified site Qualified Code(s): C67.9 - Malignant neoplasm of bladder, unspecified Code(s): C67.9 - Malignant neoplasm of bladder, unspecified Status: Acute Assessment and Plan: Large bladder cancer is present causing obstruction. Awaiting pathology results. (2) Hydronephrosis: Code(s): N13.30 - Unspecified hydronephrosis Status: Acute Assessment and Plan: Will need nephrotomy tube. (3) Gross hematuria: Code(s): R31.0 - Gross hematuria Status: Acute Assessment and Plan: Continue slow CBI drip Subjective Subjective Date/Time Seen: 07/29/22 12:14 Interval history: She feels well. nO new pain. CBI at very slow drip and urine is clear. Objective Data Vital Signs Vital Signs: Vital Signs - 24 hr 07/28/22 14:47 07/28/22 16:00 07/28/22 20:44 Temperature 36.8 C 36.6 C Pulse Rate 65 72 73 Respiratory Rate 16 14 Blood Pressure 118/49 L 152/77 H Pulse Oximetry 100 100 Oxygen Delivery 07/28/22 21:08 07/28/22 20:00 07/28/22 20:00 Temperature Pulse Rate 72 87 Respiratory Rate Blood Pressure Pulse Oximetry Oxygen Delivery Room Air 07/29/22 00:00 07/29/22 04:00 07/29/22 06:00 Temperature 36.8 C Pulse Rate 60 70 68 Respiratory Rate 14 Blood Pressure 154/75 H Pulse Oximetry 96 Oxygen Delivery 07/29/22 08:02 07/29/22 08:00 Temperature Pulse Rate 68 Respiratory Rate Blood Pressure Pulse Oximetry Oxygen Delivery Room Air Intake/Output Intake/Output: Intake & Output 07/26/22 07/27/22 07/28/22 07/29/22 23:59 23:59 23:59 23:59 Intake Total 740 2550 1370 120 Output Total 1450 5394 500 Balance 103 -8130 -824 -109 Meds/Results Medications: Active Medications Generic Name Dose Route Start Last Admin Trade Name Freq PRN Reason Stop Dose Admin Alprazolam 0.5 mg 07/26/22 20:56 Alprazolam (*Crx) 0.5 Mg Tablet PO PRN PRN Anxiety Amlodipine Besylate 5 mg 07/29/22 21:00 Amlodipine Besylate 5 Mg Tablet PO HS NAOMI Ascorbic Acid 1,000 mg 07/27/22 09:00 07/29/22 08:01 Ascorbic Acid 500 Mg Tablet PO 1,000 mg DAILY NAOMI Administration Carvedilol 3.125 mg 07/26/22 21:05 07/29/22 08:02 Carvedilol 3.125 Mg Tablet PO 3.125 mg Q12HR NAOMI Administration Ciprofloxacin 500 mg 07/26/22 21:05 07/29/22 08:02 Ciprofloxacin 500 Mg Tab PO 500 mg Q12HR NAOMI Administration Cyanocobalamin 1,000 mcg 07/27/22 09:00 07/29/22 08:02 Cyanocobalamin 1,000 Mcg Tablet PO 1,000 mcg QAM NAOMI Administration Ferrous Sulfate 324 mg 07/27/22 08:00 07/29/22 08:02 Ferrous Sulfate 324 Mg Tablet PO 324 mg DAILY@0800 NAOMI Administration Lisinopril 40 mg 07/27/22 09:00 07/29/22 08:02 Lisinopril 20 Mg Tablet PO 40 mg DAILY NAOMI Administration Melatonin 5 mg 07/29/22 11:02 Melatonin 5 Mg Tablet PO HS PRN Insomnia Ondansetron HCl 4 mg 07/26/22 16:42 07/28/22 00:27 Ondansetron Inj 4 Mg/2 Ml Vial IV PUSH 4 mg Q6H PRN Administration Nausea And Vomiting Polyethylene Glycol 17 gm 07/28/22 10:00 07/29/22 08:02 Polyethylene Glycol 3350 17 Gm Powd.Pack PO 17 gm QAM NAOMI Administration Tramadol HCl 50 mg 07/27/22 13:07 07/27/22 13:53 Tramadol Hcl (*Crx) 50 Mg Tablet PO 50 mg Q6H PRN Administration Pain Rated 4-6 Vitamin D 4,000 units 07/27/22 09:00 07/29/22 08:02 Cholecalciferol 1,000 Units Tablet PO 4,000 units DAILY NAOMI Administration Radiology Results: ITS Impressions Abdomen/Pelvis CT 07/28/22 09:47 IMPRESSION: Prominent abnormal soft tissue thickening in the region of the prostate and urinary bladder consistent with prostate and/or urothelial malignancy. Urological consultation is recommended There is associated obstruction of the left ureterovesical junction an
[2022-07-29] MEDS: amLODIPine BESYLATE 5 MG TABLET PO (19:58)
[2022-07-30] VITALS (13 sets, daily range): BP systolic 108–175; BP diastolic 52–73; PULSE 64–100; RESP 16–18; TEMP 36–37; O2SAT 95–99
[2022-07-30 07:02] LABS: Basophils Percent Auto 0.4 % (0.2-1.2); Eosinophils Absolute Auto 0.2 K/mm3 (0-0.3); Hematocrit 30.3 % (37.0-47.0); Hemoglobin 9.4 g/dL (12.0-15.0); Immature Granulocyte Absolute 0.05 K/mm3 (0.00-0.031); Immature Granulocyte Percent A 0.7 % (0-0.5); Lymphocytes Absolute Auto 0.87 K/mm3 (0.9-3.2); Lymphocytes Percent Auto 11.9 % (18.3-44.2); Mean Corpuscular Hemoglobin 26.3 pg (26-34); Mean Corpuscular Volume 84.9 fl (80-100); Mean Platelet Volume 9.3 fl (7.4-10.4); Monocytes Absolute Auto 0.8 K/mm3 (0.1-0.6); Monocytes Percent Auto 11.2 % (2.6-8.5); Neutrophils Absolute Auto 5.4 K/mm3 (1.3-6.7); Neutrophils Percent Auto 73.8 % (45.5-73.1); Platelet Count Result 209 k/mm3 (150-375); Red Blood Count 3.57 M/mm3 (4.2-5.4); Red Cell Distribution Width 17.2 % (11.5-14.5); White Blood Count 7.3 K/mm3 (4.5-10.0)
[2022-07-30 07:18] LABS: Anion Gap 2 mmol/L (8-16); Blood Urea Nitrogen 19 mg/dL (7-17); Carbon Dioxide 29 mmol/L (22-30); Chloride 105 mmol/L (98-107); Estimated CRCL calculation 39 ml/min; Estimated Glomerular Filt Rate 48; Glucose 102 mg/dL (65-110); Magnesium 1.7 mg/dL (1.6-2.3); Potassium 3.4 mmol/L (3.4-5.0); Sodium 136 mmol/L (137-145)
[2022-07-30 07:57] LABS: INR 1.1; Prothrombin Time 14.9 Seconds (11.1-14.7)
[2022-07-30 07:58] LABS: Partial Thromboplastin Time 27.9 SECONDS (22.3-36.8)
[2022-07-30] MEDS: CIPROFLOXACIN 500 MG TAB PO ×2 (09:10→21:35)
[2022-07-30] MEDS: lisinopriL 20 MG TABLET 40 MG PO (09:10)
[2022-07-30] MEDS: carvediloL 3.125 MG TABLET PO ×2 (09:10→21:35)
--- NOTE | 2022-07-30 13:36 | WPDUROPN2 ---
Progress Note: A&P Assessment and Plan (1) Malignant neoplasm of overlapping sites of bladder: Code(s): C67.8 - Malignant neoplasm of overlapping sites of bladder Status: Acute Assessment and Plan: Long talk with pt. about unresectable bladder neoplasm that is likely muscle-invasive. Following staging evaluation she may be facing neoadjuvant chemotherapy followed by radical cystectomy. We briefly discussed urinary diversion with attention to ileal conduit. Left PCN tube today for obstructed left ureter. Will consider stent internalization in 10-14 days. Stop CBI / catheter possibly out later today. Subjective Subjective Date/Time Seen: 07/30/22 13:36 Interval history: Comfortable, urine clear Review of Systems Cardiovascular: Cardiovascular: Denies chest pain, Denies lightheadedness, Denies palpitations and Denies dyspnea Respiratory: Respiratory: Denies dyspnea Gastrointestinal: Gastrointestinal: Denies diarrhea, Denies nausea and Denies vomiting Genitourinary: Genitourinary: Denies hematuria and Denies dysuria Endocrine: Endocrine: Denies palpitations Exam Const: General: no acute distress Resp: Effort & Inspection: normal respiratory effort GI: Inspection: non-distended GI Palp: No abdominal tenderness and No Guarding due to palpation present (GI) Auscultation: normal bowel sounds Urinary Catheter: Urinary Catheter: patent and draining and urine clear Objective Data Vital Signs Vital Signs: Vital Signs - 24 hr 07/29/22 14:00 07/29/22 16:00 07/29/22 20:02 Temperature 98.2 F Pulse Rate 72 78 99 Respiratory Rate 16 Blood Pressure 150/64 H Pulse Oximetry 95 Oxygen Delivery 07/29/22 20:52 07/29/22 20:00 07/29/22 20:00 Temperature 98.1 F Pulse Rate 78 91 Respiratory Rate 18 Blood Pressure 171/71 H Pulse Oximetry 98 Oxygen Delivery Room Air 07/30/22 00:00 07/30/22 04:00 07/30/22 06:00 Temperature 97.6 F Pulse Rate 67 64 72 Respiratory Rate 18 Blood Pressure 149/73 H Pulse Oximetry 96 Oxygen Delivery 07/30/22 08:00 Temperature Pulse Rate Respiratory Rate Blood Pressure Pulse Oximetry Oxygen Delivery Room Air Intake/Output Intake/Output: Intake & Output 07/27/22 07/28/22 07/29/22 07/30/22 23:59 23:59 23:59 23:59 Intake Total 2550 1370 700 200 Output Total 4391 8021 2960 0307 [facility] [place] [phone] Meds/Results Medications: Active Medications Generic Name Dose Route Start Last Admin Trade Name Freq PRN Reason Stop Dose Admin Alprazolam 0.5 mg 07/26/22 20:56 Alprazolam (*Crx) 0.5 Mg Tablet PO PRN PRN Anxiety Amlodipine Besylate 5 mg 07/29/22 21:00 07/29/22 19:58 Amlodipine Besylate 5 Mg Tablet PO 5 mg HS NAOMI Administration Ascorbic Acid 1,000 mg 07/27/22 09:00 07/30/22 08:38 Ascorbic Acid 500 Mg Tablet PO Not Given DAILY NAOMI Carvedilol 3.125 mg 07/26/22 21:05 07/30/22 09:10 Carvedilol 3.125 Mg Tablet PO 3.125 mg Q12HR NAOMI Administration Ciprofloxacin 500 mg 07/26/22 21:05 07/30/22 09:10 Ciprofloxacin 500 Mg Tab PO 500 mg Q12HR NAOMI Administration Cyanocobalamin 1,000 mcg 07/27/22 09:00 07/30/22 08:38 Cyanocobalamin 1,000 Mcg Tablet PO Not Given QAM NAOMI Ferrous Sulfate 324 mg 07/27/22 08:00 07/30/22 08:38 Ferrous Sulfate 324 Mg Tablet PO Not Given DAILY@0800 NAOMI Hydralazine HCl 20 mg 07/30/22 07:59 Hydralazine Hcl 20 Mg/Ml Vial IV PUSH Q3-4H PRN Blood Pressure - High Lisinopril 40 mg 07/27/22 09:00 07/30/22 09:10 Lisinopril 20 Mg Tablet PO 40 mg DAILY NAOMI Administration Melatonin 5 mg 07/29/22 11:02 Melatonin 5 Mg Tablet PO HS PRN Insomnia Ondansetron HCl 4 mg 07/26/22 16:42 07/28/22 00:27 Ondansetron Inj 4 Mg/2 Ml Vial IV PUSH 4 mg Q6H PRN Administration Nausea And Vomiting Polyethylene Glycol 17 gm 07/28/22 10:00 07/30/22 08:38
[2022-07-30] MEDS: hydrALAZINE HCL 20 MG/ML VIAL IV PUSH (14:59)
--- NOTE | 2022-07-30 14:59 | PM.IMPN ---
Progress Note: A&P Assessment and Plan (1) Bladder cancer: Qualifiers: Bladder location: unspecified site Qualified Code(s): C67.9 - Malignant neoplasm of bladder, unspecified Code(s): C67.9 - Malignant neoplasm of bladder, unspecified Status: Acute (2) Constipation: Qualifiers: Constipation type: unspecified constipation type Qualified Code(s): K59.00 - Constipation, unspecified Code(s): K59.00 - Constipation, unspecified Status: Acute (3) Anemia: Qualifiers: Anemia type: other cause Other causes of anemia: chronic disease, neoplastic Qualified Code(s): D63.0 - Anemia in neoplastic disease Code(s): D64.9 - Anemia, unspecified Status: Acute (4) Acute blood loss anemia: Code(s): D62 - Acute posthemorrhagic anemia Status: Acute (5) Hypertension: Qualifiers: Hypertension type: primary hypertension Qualified Code(s): I10 - Essential (primary) hypertension Code(s): I10 - Essential (primary) hypertension Status: Chronic (6) Neurogenic bladder: Code(s): N31.9 - Neuromuscular dysfunction of bladder, unspecified Status: Chronic Plan Anemia? secondary? to? bladder? neoplasm? and? subsequent? hematuria - hemoglobin 9.4->9.3->10.2->9.4--> 9.5-->9.4 today. Continue to monitor. - known? source? of? bleeding.? Monitor hematuria? s/p partial TURBT. - Transfuse? for hemoglobin ? less than 7 g/dl.? - Currently taking ascorbic acid 1000 mg daily with ferrous sulfate 325 mg PO daily. Bladder Cancer -S/P POD [address] Horton. According to the post-op note, it was a very difficult resection in which only part of the tumor was able to be removed. Clots were removed and inspection revealed the mass travels almost the entire bladder neck area with urethra involvement. It also extends along the left lateral wall, anterior wall, and floor of the bladder with irregularity noted near the dome. -Rodriguez catheter remains. D/c when ok with urology. -Monitor for worsening Cr and signs of hydronephrosis. Cr today 1.0. -CT abdomen and pelvis done today. Prominent soft tissue thickening in the region of the urinary bladder consistent with malignancy. Associated obstruction of the left ureterovesical junctional and prominent left hydroureteronephrosis, left renal cyst. PCN placed today. Urology note says she may need stent placement in 10-14 days. Discharge disposition per Urology. -Tramadol 50 mg PO q 6 hours for pain -Diagnosis related anxiety and insomnia. Recommend using prn alprazolam 0.5 mg PO PRN. Will also add melatonin 5 mg PO prn for insomnia. Hematuria -Hematuria upon admission with known clots in bladder. -Transfuse if hemoglobin less than 7 g/dl. Neurogenic bladder -Patient normally self-caths at home but currently has Rodriguez catheter. -Rodriguez care per hospital protocol -Maintain catheter until direction from Urology to remove? HTN: -Blood pressure has been consistently on the high side this admission 150s/70s with HR 70's. Amlodipine increased to 5 mg PO daily. -Resumed home medications -Will increase amlodipine to 5 mg PO daily. Recurrent UTI -with antibiotic prophylaxis -Taking daily Ciprofloxacin 500 mg PO BID Subjective Date/time seen: 07/30/22 14:59 Interval history: This is a pleasant 81 year old female who is status post TURBT today. She initially presented to the hospital from her Urologist's office after a cystoscopy found large clot burden. She has a PMH of a recent bladder cancer diagnosis in 04/2022, neurogenic bladder for which she self caths, chronic UTIs on prophylaxis, HTN, anxiety, and anemia. She was recently hospitalized in April of this year for anemia for which she received a blood transfusion and was started on PO iron/vitamin C. I spoke with her and her daughter at the bedside after she returned from PACU. She is drowsy but responds to my questions appropriately. At
[2022-07-30] MEDS: ALPRAZolam (*CRX) 0.5 MG TABLET PO (17:58)
[2022-07-30] MEDS: amLODIPine BESYLATE 5 MG TABLET PO (21:35)
[2022-07-31] VITALS: PULSE 71
[2022-07-31 04:00] VITALS: PULSE 64
[2022-07-31 06:00] VITALS: BP 136/62; PULSE 71; RESP 18; TEMP 36.5; O2SAT 96
[2022-07-31 06:18] LABS: Basophils Percent Auto 0.5 % (0.2-1.2); Eosinophils Absolute Auto 0.2 K/mm3 (0-0.3); Eosinophils Percent Auto 2.5 % (0-4.4); Hematocrit 28.9 % (37.0-47.0); Hemoglobin 9.4 g/dL (12.0-15.0); Immature Granulocyte Absolute 0.06 K/mm3 (0.00-0.031); Immature Granulocyte Percent A 0.8 % (0-0.5); Lymphocytes Absolute Auto 0.99 K/mm3 (0.9-3.2); Lymphocytes Percent Auto 12.8 % (18.3-44.2); Mean Corpuscular HGB Conc 32.5 g/dl (32-36); Mean Corpuscular Hemoglobin 27.2 pg (26-34); Mean Corpuscular Volume 83.5 fl (80-100); Mean Platelet Volume 9.4 fl (7.4-10.4); Monocytes Absolute Auto 0.8 K/mm3 (0.1-0.6); Monocytes Percent Auto 10.7 % (2.6-8.5); Neutrophils Absolute Auto 5.6 K/mm3 (1.3-6.7); Neutrophils Percent Auto 72.7 % (45.5-73.1); Platelet Count Result 202 k/mm3 (150-375); Red Blood Count 3.46 M/mm3 (4.2-5.4); Red Cell Distribution Width 17.3 % (11.5-14.5); White Blood Count 7.8 K/mm3 (4.5-10.0)
--- NOTE | 2022-07-31 06:33 | WPDUROPN2 ---
Progress Note: A&P Assessment and Plan (1) Malignant neoplasm of overlapping sites of bladder: Code(s): C67.8 - Malignant neoplasm of overlapping sites of bladder Status: Acute (2) Hydronephrosis: Code(s): N13.30 - Unspecified hydronephrosis Status: Acute Plan Hoping for discharge today. Will remove Rodriguez catheter and arrange home health to assist with nephrostomy. Plan to attempt internalization ureteral stent in ~2 weeks. Definitive bladder neoplasm plan when pathology available. Subjective Subjective Date/Time Seen: 07/31/22 06:33 Interval history: Comfortable, tolerating PCN tube Review of Systems Cardiovascular: Cardiovascular: Denies chest pain, Denies lightheadedness, Denies palpitations and Denies dyspnea Respiratory: Respiratory: Denies dyspnea Gastrointestinal: Gastrointestinal: Denies diarrhea, Denies nausea and Denies vomiting Genitourinary: Genitourinary: Denies hematuria and Denies dysuria Endocrine: Endocrine: Denies palpitations Exam Const: General: no acute distress Resp: Effort & Inspection: normal respiratory effort GI: Inspection: non-distended GI Palp: No abdominal tenderness and No Guarding due to palpation present (GI) Auscultation: normal bowel sounds Urinary Catheter: Urinary Catheter: patent and draining and urine pink Objective Data Vital Signs Vital Signs: Vital Signs - 24 hr 07/30/22 08:00 07/30/22 14:46 07/30/22 15:00 Temperature 98.6 F 96.8 F L Pulse Rate 67 66 Respiratory Rate 16 16 Blood Pressure 175/70 H 166/73 H Pulse Oximetry 99 98 Oxygen Delivery Room Air 07/30/22 15:30 07/30/22 08:00 07/30/22 12:00 Temperature 96.9 F L Pulse Rate 86 75 67 Respiratory Rate 16 Blood Pressure 136/54 L Pulse Oximetry 95 Oxygen Delivery 07/30/22 16:00 07/30/22 16:30 07/30/22 21:35 Temperature 96.8 F L Pulse Rate 95 77 84 Respiratory Rate 16 Blood Pressure 108/52 L Pulse Oximetry 96 Oxygen Delivery 07/30/22 22:00 07/30/22 20:00 07/30/22 20:00 Temperature 97.7 F Pulse Rate 77 100 Respiratory Rate 17 Blood Pressure 126/60 Pulse Oximetry 99 Oxygen Delivery Room Air 07/31/22 00:00 07/31/22 04:00 Temperature Pulse Rate 71 64 Respiratory Rate Blood Pressure Pulse Oximetry Oxygen Delivery Intake/Output Intake/Output: Intake & Output 07/28/22 07/29/22 07/30/22 07/31/22 23:59 23:59 23:59 23:59 Intake Total 1370 700 920 Output Total 1828 1025 4505 125 Balance -455 -325 -3585 -125 Meds/Results Medications: Active Medications Generic Name Dose Route Start Last Admin Trade Name Freq PRN Reason Stop Dose Admin Alprazolam 0.5 mg 07/26/22 20:56 07/30/22 17:58 Alprazolam (*Crx) 0.5 Mg Tablet PO 0.5 mg PRN PRN Administration Anxiety Amlodipine Besylate 5 mg 07/29/22 21:00 07/30/22 21:35 Amlodipine Besylate 5 Mg Tablet PO 5 mg HS NAOMI Administration Ascorbic Acid 1,000 mg 07/27/22 09:00 07/30/22 08:38 Ascorbic Acid 500 Mg Tablet PO Not Given DAILY NAOMI Carvedilol 3.125 mg 07/26/22 21:05 07/30/22 21:35 Carvedilol 3.125 Mg Tablet PO 3.125 mg Q12HR NAOMI Administration Ciprofloxacin 500 mg 07/26/22 21:05 07/30/22 21:35 Ciprofloxacin 500 Mg Tab PO 500 mg Q12HR NAOMI Administration Cyanocobalamin 1,000 mcg 07/27/22 09:00 07/30/22 08:38 Cyanocobalamin 1,000 Mcg Tablet PO Not Given QAM NAOMI Ferrous Sulfate 324 mg 07/27/22 08:00 07/30/22 08:38 Ferrous Sulfate 324 Mg Tablet PO Not Given DAILY@0800 NAOMI Hydralazine HCl 20 mg 07/30/22 07:59 07/30/22 14:59 Hydralazine Hcl 20 Mg/Ml Vial IV PUSH 20 mg Q3-4H PRN Administration Blood Pressure - High Lisinopril 40 mg 07/27/22 09:00 07/30/22 09:10 Lisinopril 20 Mg Tablet PO 40 mg DAILY NAOMI Administration Melatonin 5 mg 07/29/22 11:02 Melatonin 5 Mg Tablet PO HS PRN Insomnia Ondansetron HCl 4 m
[2022-07-31 06:40] LABS: Anion Gap 3 mmol/L (8-16); Blood Urea Nitrogen 24 mg/dL (7-17); Calcium 8.6 mg/dL (8.4-10.2); Carbon Dioxide 27 mmol/L (22-30); Chloride 105 mmol/L (98-107); Estimated CRCL calculation 39 ml/min; Estimated Glomerular Filt Rate 48; Glucose 101 mg/dL (65-110); Magnesium 1.7 mg/dL (1.6-2.3); Potassium 3.4 mmol/L (3.4-5.0); Sodium 135 mmol/L (137-145)
[2022-07-31 08:00] VITALS: PULSE 80
[2022-07-31] MEDS: CIPROFLOXACIN 500 MG TAB PO (08:40)
[2022-07-31] MEDS: ASCORBIC ACID 500 MG TABLET 1000 MG PO (08:40)
[2022-07-31] MEDS: lisinopriL 20 MG TABLET 40 MG PO (08:40)
[2022-07-31] MEDS: FERROUS SULFATE 324 MG TABLET PO (08:40)
[2022-07-31] MEDS: CYANOCOBALAMIN 1,000 MCG TABLET 1000 MCG PO (08:40)
[2022-07-31] MEDS: CHOLECALCIFEROL 1,000 UNITS TABLET 4000 UNITS PO (08:41)
[2022-07-31] MEDS: carvediloL 3.125 MG TABLET PO (08:41)
[2022-07-31 12:00] VITALS: PULSE 70
--- NOTE | 2022-07-31 13:18 | PM.DS ---
DS: Admitting Diagnosis Discharge Date July 31 2022 Admitting Diagnosis Hematuria 2/2 malignant neoplasm of overlapping sites of bladder. DS: Discharge Diagnosis Discharge Diagnosis (1) Bladder cancer: Qualifiers: Bladder location: unspecified site Qualified Code(s): C67.9 - Malignant neoplasm of bladder, unspecified Code(s): C67.9 - Malignant neoplasm of bladder, unspecified Status: Acute (2) Constipation: Qualifiers: Constipation type: unspecified constipation type Qualified Code(s): K59.00 - Constipation, unspecified Code(s): K59.00 - Constipation, unspecified Status: Acute (3) Anemia: Qualifiers: Anemia type: other cause Other causes of anemia: chronic disease, neoplastic Qualified Code(s): D63.0 - Anemia in neoplastic disease Code(s): D64.9 - Anemia, unspecified Status: Acute (4) Acute blood loss anemia: Code(s): D62 - Acute posthemorrhagic anemia Status: Acute (5) Hypertension: Qualifiers: Hypertension type: primary hypertension Qualified Code(s): I10 - Essential (primary) hypertension Code(s): I10 - Essential (primary) hypertension Status: Chronic (6) Neurogenic bladder: Code(s): N31.9 - Neuromuscular dysfunction of bladder, unspecified Status: Chronic Plan Plan per Urology as followed, Will remove Rodriguez catheter and arrange home health to assist with nephrostomy.?Patient will self-cath at home. Plan to attempt internalization ureteral stent in ~2 weeks. Definitive bladder neoplasm plan when pathology available. DS: Summary Hospital Course Reason for hospitalization: You were admitted after not being able to self-cath and had significant hematuria with clots. Dr Horton took you to the OR on July 27 for a cystoscopy with transurethral section of a bladder tumor. He was able to resect approximately half of the mass. Due to not being able to visualize the ureteral orifices (area where urine drains into the bladder), it was recommended that you have a CT to look at your kidneys to make sure there wasn't any urine backup. Unfortunately, you did have urine backed up around your left kidney (called hydronephrosis). The treatment for this was placement of a nephrostomy tube, completed on 07/30. Dr Nugent is okay with you going home today. You will need to self catheterize and empty the nephrostomy tube as needed. Home health will be coming a couple of times a week to make sure you managing your nephrostomy tube okay. You will also need a stent placed in about [address] Nugent' office will coordinate this. Dr Nugent will help you make an definitive plan regarding your bladder cancer once the pathology comes back. Besides home health consults I will be sending you home on Keflex antibiotic 500 mg oral tablets every 12 hours for three days. It has been a pleasure to care for you and I am sorry that your bladder cancer has progressed this much since April. Thank you for letting us care for you here at [facility]. Hospital Course: This is a pleasant 81 year old female who is status post TURBT today. She initially presented to the hospital from her Urologist's office after a cystoscopy found large clot burden. She has a PMH of a recent bladder cancer diagnosis in 04/2022, neurogenic bladder for which she self caths, chronic UTIs on prophylaxis, HTN, anxiety, and anemia. She was recently hospitalized in April of this year for anemia for which she received a blood transfusion and was started on PO iron/vitamin C. I spoke with her and her daughter at the bedside after she returned from PACU. She is drowsy but responds to my questions appropriately. At this time she complains of back pain which she contributes to OR positioning. Prior to coming into the hospital she was feeling well besides having difficulty with self catheterization and hematuria, which is what prompted her to see her Urologis
[2022-07-31 14:00] VITALS: BP 148/71; PULSE 74; RESP 16; TEMP 36.7; O2SAT 99
== END 2022-07-31 14:53 | disposition home health service (06) | DRG 669 ==
PROVIDERS: Nurse Practitioner; Urology; Admitting Provider Internal Medicine; PCP Physician Assistant; Visit Provider Nurse Practitioner Acute Care
PROC: 0TCB8ZZ Extirpation of Matter from Bladder, Via Natural or Artificial Opening Endoscopic (ICD-10-PCS; CPT 52001; principal; 2022-07-27 08:30)
DX: C67.8 Malignant neoplasm of overlapping sites of bladder (principal); N13.1 Hydronephrosis with ureteral stricture, not elsewhere classified; R31.0 Gross hematuria; D63.0 Anemia in neoplastic disease; F41.9 Anxiety disorder, unspecified; G47.00 Insomnia, unspecified; I10 Essential (primary) hypertension; K59.00 Constipation, unspecified; N31.2 Flaccid neuropathic bladder, not elsewhere classified; Z90.710 Acquired absence of both cervix and uterus; Z98.49 Cataract extraction status, unspecified eye; Z96.653 Presence of artificial knee joint, bilateral; Z87.440 Personal history of urinary (tract) infections
CPT/HCPCS: 36415; 50432; 74178; 80048; 80053; 80069; 83605; 83735; 85014; 85018; 85025; 85610; 85652; 85730; 86850; 86900; 86901; 87070; 87075; 87205; 88305; 88342; A9270; C1729; C1769; G0378; G0379; J0360; J0690; J1100; J2405; J2704; J3010; J7030; J7120; Q9967

== ENCOUNTER 2022-08-09 01:32 | Day surgery (SDC) | payer OTHER, MEDICARE, SELFPAY ==
--- NOTE | 2022-08-06 07:23 | PM.HPGS ---
History of Present Illness History of Present Illness Consent: Risks, benefits, and alternatives have been discussed and questions answered. Patient agrees to proceed with procedure. Chief complaint: kidney CA Narrative: Nydia Goldman is a 82 year old female known to our practice with a history of recurrent bladder cancer. She was recently found to have an extensive bladder cancer obstructing her left ureter. A left percutaneous nephrostomy tube was placed she now presents for attempted internalization of left collecting system and ureter drainage. She is aware of the risk of this including, but not limited to, inability to place the ureteral stent and need for change of stents in the future. Review of Systems Review of Systems: All systems reviewed & are unremarkable except as noted in HPI and below PMFSH Past Medical History Medical History (Updated 08/02/22 @ 07:12 by Rene Galan DO) Anxiety Bladder cancer Hx of recurrent urinary tract infection Hypertension Hypokalemia Neurogenic bladder PONV (postoperative nausea and vomiting) Surgical History Surgical History (Updated 07/26/22 @ 20:56 by Carmen Brown NP) H/O hysterectomy for benign disease Hx of cataract extraction S/P cystoscopy S/P total knee arthroplasty Bilateral Family History Family History Mother Hx of heart surgery Cerebrovascular accident Family history of arthritis Family history of mental disorder Hypertension Father Family history of alcoholism Grandparent Family history of arthritis Social History Social History (Updated 07/26/22 @ 20:55 by Carmen Brown NP) Social History: The patient is and has 2 children. The patient continues to work at a bank. Lifelong nonsmoker does does not use any alcohol marijuana or illicit drugs. Code status full code Smoking status: Never smoker Smoking end date: 02/12/1964 Alcohol intake: never Substance use: never Substance use type: does not use Lack of Transportation: No Lack of Food: Never True Current Housing: I Have Housing Concerned About Future Housing: No Difficulty Paying Gas/Electric Bills: No Difficulty Paying for Meds: No Currently Unemployed: No Education: High School Diploma/GED Difficulty w/ Childcare or Family Care: No Living arrangements: with family Gender identity (if verbalized by the patient): Female Spiritual care concerns: No Meds Home Medications and Allergies Home Medications Medication Instructions Recorded Confirmed Type alprazolam 0.5 mg tablet 0.5 mg PO PRN PRN Anxiety 05/02/22 07/26/22 History amlodipine 2.5 mg tablet 2.5 mg PO HS 05/02/22 07/26/22 History carvedilol 3.125 mg tablet 3.125 mg PO BID 05/02/22 07/26/22 History cholecalciferol (vitamin D3) 100 5,000 mcg PO DAILY 05/02/22 07/26/22 History mcg (4,000 unit) tablet lisinopril 40 mg tablet 40 mg PO DAILY 05/02/22 07/26/22 History cyanocobalamin (vitamin B-12) 1,000 mcg PO QAM #30 tabs 05/14/22 07/26/22 Rx 1,000 mcg tablet (Vitamin B-12) ascorbic acid (vitamin C) 500 mg 1,000 mg PO DAILY 07/26/22 07/26/22 History tablet (Vitamin C) ciprofloxacin 500 mg/5 mL oral 500 mg PO BID 07/26/22 07/26/22 History suspension ferrous sulfate 325 mg (65 mg 325 mg PO DAILY@0800 07/26/22 07/26/22 History iron) tablet omega 1-mbi-jkt-fish oil 1,200 mg 1 cap PO DAILY 07/26/22 07/27/22 History (144 mg-216 mg) capsule (Fish Oil) Allergies Allergy/AdvReac Type Severity Reaction Status Date / Time hydrocodone Allergy Mild DISORIENTAT Verified 07/26/22 17:05 ION diazepam Allergy Unknown disorientat Verified 07/26/22 17:05 ion Exam Const: General: no acute distress Resp: Effort & Inspection: normal respiratory effort GI: Inspection: non-distended GI Palp: No abdominal tenderness and No Guarding due to palpation present (GI) Auscultation: nor
[2022-08-06 09:03] VITALS: BMI 31.8
--- NOTE | 2022-08-06 09:36 | PC.NURSE ---
Report to the Outpatient Waiting Room, entrance under the green pavilion located off [facility], at time __7:15AM on date __08/09/22 . Planned Procedure Time: __9:15AM . Time changes happen often and if your time is changed the preop area will call you the afternoon before. - You and your visitor will be asked to self-screen and do not enter if you have any COVID symptoms. - A mask is optional within the hospital at this time. Patients may have clear liquids (water, carbonated beverages, clear teas, apple juice) until 3 hours prior to surgery with a maximum of 20 ounces. - No food from midnight until time of surgery Take the following medications with a SIP of water the morning of surgery: _CARVEDILOL, CIPRO, ALPRAZOLAM NEEDED DO NOT STOP ANY OF YOUR OTHER PRESCRIPTION MEDICATIONS PRIOR TO SURGERY ?EXCEPT THE FOLLOWING Medications to discontinue per physician ___HOLD ALL VITAMINS/SUPPLEMENTS 3 DAYS PRE-OP STARTING NOW Date to take last dose____08/05/22 Please no make-up, nail indian, hairspray, perfume, deodorant, or body powder the day of surgery. No jewelry (including any body piercings) or valuables the day of surgery, leave them at home. Please take a shower or bath the night before, or the morning of, surgery with an antibacterial soap. Wear comfortable, loose fitting clothing. Children are encouraged to wear pajamas. - Jewelry must be removed prior to entering the operating room. Rings and piercings that are not removed may be cut off. - The hospital will not accept responsibility for valuables. - Please leave all valuables, including medications, at home the day of surgery. If you are going home after surgery, a licensed corrugated fastener driver must drive you home. - NO public transportation without another adult if you receive anesthesia. - We recommend that an adult stay with you for 24 hours following discharge. - We also recommend that you do not drive, make important decision, drink alcoholic beverages, or take any drugs that were not prescribed by your health care provider for at least 24 hours after your discharge time. Follow any additional instructions given to you from your surgeon. If you or anyone in your household have experienced Covid symptoms in the past week, please notify your surgeon or the nurse liaison at the phone number below for possible testing. Telephone instructions given to __PATIENT and asked if any additional questions and then verbalized understanding. Patient advised to call surgeon office or pre surgery nurse liaison [phone] if any additional questions.
[2022-08-09] VITALS (10 sets, daily range): BP systolic 124–157; BP diastolic 60–76; PULSE 70–80; RESP 14–24; TEMP 36.2–36.3; O2SAT 98–100
--- NOTE | ~2022-08-09 | XR_ITS ---
EXAMINATION: XR retrograde pyelogram LT DATE: 08/09/2022 10:03 INDICATION: Nephrostogram and percutaneous nephrostomy tube removal TECHNIQUE: 2 fluoroscopic images of the abdomen and pelvis were obtained during procedure performed hermila Nugent. Radiologist was not present for the imaging or procedure. The amount of fluoroscopy bravo e used during this procedure was 7.1 minutes. COMPARISON: None. FINDINGS: Injection of contrast into the percutaneous nephrostomy tube can demonstrate some left hydronephrosis with unchanged dilation of the renal pelvis but some apparent decrease in the degree of dilation of the calyces and infundibula. The prior hydroureter appears to have resolved. Final image demonstrates removal of the percutaneous gastrostomy tube some residual extravasated contrast along the catheter tract. There is a minimal amount of contrast remaining in upper pole calyx of the right kidney with t he majority the injected contrast having cleared. IMPRESSION: 1. Improvement in prior left hydroureteronephrosis and removal of the recently placed a nephrostomy t ube. See procedure note for further detail. Reviewed, dictated and finalized at location A. IMPRESSION: 1. Improvement in prior left hydroureteronephrosis and removal of the recently placed a nephrostomy tube. See procedure note for further detail.
--- NOTE | 2022-08-09 06:36 | WPDHPUPDATE1 ---
History and Physical Update Update Date/Time: 08/09/22 06:36 History and Physical has been reviewed, including an updated exam of the patient. There are NO changes in the patient's condition. Risks, benefits, and alternatives have been discussed and questions answered. Patient agrees to proceed with procedure.
--- NOTE | 2022-08-09 08:24 | WPDANESEPPF ---
Anes - Initial Pre Proc Eval Procedure: Operation Date: 08/09/22 09:15 Proposed Procedures p Cystoscopy, Internalization Left Ureteral Stent - Miles Nugent MD Date/Time: 08/09/22 08:24 Surgeon: Miles Nugent MD Pre Op Diagnosis: bladder cancer Patient Data Age: 82 Gender: F Height: 1.65 m Weight: 85.8 kg Last Vital Signs Temp 36.3 C L 08/09/22 07:17 Pulse 76 08/09/22 07:17 Resp 20 08/09/22 07:17 BP 157/74 H 08/09/22 07:17 Pulse Ox 98 08/09/22 07:17 O2 Del Method Room Air 08/09/22 07:17 Allergies Allergy/AdvReac Type Severity Reaction Status Date / Time hydrocodone AdvReac Mild DISORIENTAT Verified 08/09/22 07:28 ION diazepam AdvReac Unknown disorientat Verified 08/09/22 07:28 ion Home Medications Medication Instructions Recorded Confirmed Type alprazolam 0.5 mg tablet 0.5 mg PO PRN PRN Anxiety 05/02/22 08/06/22 History amlodipine 2.5 mg tablet 2.5 mg PO HS 05/02/22 08/09/22 History carvedilol 3.125 mg tablet 3.125 mg PO BID 05/02/22 08/09/22 History cholecalciferol (vitamin D3) 100 5,000 mcg PO DAILY 05/02/22 08/09/22 History mcg (4,000 unit) tablet lisinopril 40 mg tablet 40 mg PO QAM 05/02/22 08/09/22 History cyanocobalamin (vitamin B-12) 1,000 mcg PO QAM #30 tabs 05/14/22 08/09/22 Rx 1,000 mcg tablet (Vitamin B-12) ascorbic acid (vitamin C) 500 mg 1,000 mg PO DAILY 07/26/22 08/09/22 History tablet (Vitamin C) ciprofloxacin 500 mg/5 mL oral 500 mg PO BID 07/26/22 08/09/22 History suspension ferrous sulfate 325 mg (65 mg 325 mg PO DAILY@0800 07/26/22 08/09/22 History iron) tablet omega 6-wxe-jzl-fish oil 1,200 mg 1 cap PO DAILY 07/26/22 08/09/22 History (144 mg-216 mg) capsule (Fish Oil) acetaminophen 500 mg tablet 500 mg PO Q6H PRN Pain 08/06/22 08/09/22 History (Acetaminophen Extra Strength) Patient hx anesthesia problems: post op nausea/vomiting Family hx anesthesia problems: none Results Review: All pre-operative results and documents have been reviewed as part of the pre-operative evaluation. PMF Past Medical History Medical History Anxiety Bladder cancer Hx of recurrent urinary tract infection Hypertension Hypokalemia Neurogenic bladder PONV (postoperative nausea and vomiting) Surgical History Surgical History H/O hysterectomy for benign disease Hx of cataract extraction S/P cystoscopy S/P total knee arthroplasty Bilateral Family History Family History Mother Hx of heart surgery Cerebrovascular accident Family history of arthritis Family history of mental disorder Hypertension Father Family history of alcoholism Grandparent Family history of arthritis Social History Social History Social History: The patient is and has 2 children. The patient continues to work at a bank. Lifelong nonsmoker does does not use any alcohol marijuana or illicit drugs. Code status full code Smoking status: Never smoker Smoking end date: 02/12/1964 Alcohol intake: never Substance use: never Substance use type: does not use Lack of Transportation: No Lack of Food: Never True Current Housing: I Have Housing Concerned About Future Housing: No Difficulty Paying Gas/Electric Bills: No Difficulty Paying for Meds: No Currently Unemployed: No Education: High School Diploma/GED Difficulty w/ Childcare or Family Care: No Living arrangements: with family Additional living arrangements comments: DAUGHTER-AARON Gender identity (if verbalized by the patient): Female Spiritual care concerns: No Anes - Eval Final PreProcedure Day of Procedure 08/09/22 08:24 Patient weight: obese Heart: regular rate and rhythm Lungs: clear to auscultation
[2022-08-09] MEDS: LACTATED RINGERS 1,000 ML 30 ML IV CONT (08:25)
[2022-08-09] MEDS: ceFAZolin 2 GM/D5W 50 ML 2 GM/50 ML BAG IVPB (09:04)
--- NOTE | 2022-08-09 10:26 | SUR.PHASEI ---
1026: Simple mask removed.
--- NOTE | 2022-08-09 10:30 | W.PM.PROC2 ---
Procedure Note - Detailed Date of Procedure 08/09/22 Pre-op Diagnosis Muscle invasive bladder cancer Post-op Diagnosis Same Procedure Performed Cystoscopy, left nephrostogram with attempted placement of left ureteral stent Surgeon Miles Nugent MD Anesthesia General Description of Procedure Patient is brought to the op suite where she has prepped draped in routine sterile fashion while in dorsal lithotomy position after the uneventful induction of a general LMA anesthetic. I 1st performed a left nephrostogram through her nephrostomy tube. There was no apparent obstruction or dilatation of the left collecting system at this time. Admitted exhaustive attempt to negotiate guidewires of various types into the left ureter without success. I had discussed with the patient possibility we could place the stent in an antegrade fashion. In the absence of apparent ongoing high-grade ureteral obstruction and her absence of a symptomatic obstruction in the recent past we opted to remove the nephrostomy. I also attempted cystoscopy to identify her left ureteral orifice with without success. She continues to have a large amount neoplasm involving much of her bladder wall. Urine Output -100.0 Drains No
== END 2022-08-09 11:40 | disposition home or self-care (01) ==
PROVIDERS: PCP Physician Assistant; Visit Provider Urology
PROC: (CPT 52352; principal; 2022-08-09 09:15)
DX: C67.8 Malignant neoplasm of overlapping sites of bladder (principal); N13.30 Unspecified hydronephrosis; Z46.6 Encounter for fitting and adjustment of urinary device; I10 Essential (primary) hypertension; F41.9 Anxiety disorder, unspecified; E66.9 Obesity, unspecified; Z68.31 Body mass index [BMI] 31.0-31.9, adult
CPT/HCPCS: 52332; 50561; 74420; C1758; C1769; J0690; J1100; J2405; J2704; J3010; J7120; Q9966

== ENCOUNTER 2022-09-01 17:56 | Emergency (ER) | payer OTHER, MEDICARE, SELFPAY ==
[2022-09-01] VITALS (19 sets, daily range): BP systolic 132–169; BP diastolic 73–89; PULSE 82; RESP 18; TEMP 36.6; O2SAT 86–100
--- NOTE | ~2022-09-01 | CT_ITS ---
EXAMINATION: CT abdomen pelvis w con DATE: 09/01/2022 20:23 INDICATION: Suprapubic pain, hx of bladder cancer TECHNIQUE: Computed tomography (CT) of the abdomen and pelvis was performed with 100 mL Omnipaque-350 intravenous contrast. Automated exposure control and iterative reconstruction technique were employe d. The dose-length product was 1064.90 mGy-cm. COMPARISON: 07/28/2022. FINDINGS: Lower thorax: Clear lung bases. Aortic and mitral calcification. Liver: Normal. Biliary/Gallbladder: Gallbladder is normal. No bile duct dilation. Pancreas: No mass or duct dilation. Spleen: Normal. Adrenals:No mass. Kidneys: Bilateral cortical thinning and scarring. Multiple left renal cysts. Right upper pole hypode nsity, too small to characterize but most likely represents a cyst. Moderate bilateral hydronephrosis , greater on the left. Delayed nephrogram on the left, possibly slightly worsened since the prior sanjeev dy. GI tract: Mild distal esophageal and gastric wall edema. No small bowel dilation. The rectum is mildl y dilated by formed stool without inflammatory change. Normal appendix. Mesentery/Peritoneum: No ascites, mass, or free air. Retroperitoneum: No mass. Mild atherosclerotic abdominal aortic and/or arterial calcifications. Pelvis: Severe bladder wall edema and inflammation. Redemonstration of the large prostatic or urothel ial mass, which is significantly larger, with significantly increased heterogeneous low-density throu ghout. Soft Tissues: Soft tissues and body wall unremarkable. Bones: No acute osseous finding. IMPRESSION: Mild esophagitis/gastritis. Severe cystitis. Moderate bilateral hydronephrosis, new on the right, stable to slightly worsening on the left. Significantly enlarged prostatic or urothelial mass in the bladder, likely with interval necrosis. Mild fecal impaction. Reviewed, dictated and finalized at location K. IMPRESSION: Mild esophagitis/gastritis. Severe cystitis. Moderate bilateral hydronephrosis, new on the right, stable to slightly worseni ng on the left. Significantly enlarged prostatic or urothelial mass in the bladder, likely with interval necrosis. Mild fecal impaction.
--- NOTE | 2022-09-01 19:03 | PC.NURSE ---
Pt has hx of bladder cancer and is scheduled for surgery until she was diagnosed with a UTI and was sent home on antibiotics. States before that was taking an OTC UTI medication with no relief. Pt states that her symptoms have continued. States that she has to catheterize her self to urinate. States today that she has burning, bilateral flank pain and urgency.
[2022-09-01] MEDS: ACETAMINOPHEN 500 MG TABLET 1000 MG PO (19:25)
[2022-09-01] MEDS: oxyCODONE HCL (*CRX) 5 MG TAB IR PO (19:25)
--- NOTE | 2022-09-01 19:33 | ED.GENADULT ---
HPI - General Adult General Chief complaint: Urogenital-Female Stated complaint: horrible bladder infection Time Seen by Provider: 09/01/22 18:58 History of Present Illness HPI narrative: this is an 82-year-old female with history of bladder cancer, neurogenic bladder self caths presenting with suprapubic pain. Patient says that starting 5 days ago she started feel like she had a bladder infection. She then took over the counter medication with no improvement her symptoms. She saw 3 days ago who placed her on Bactrim. She has taken 5 doses but has no improvement in her symptoms. Her main complaint is pain, she has been taking Tylenol with no relief. She has had subjective fevers, diaphoresis and nausea. Related Data Home Medications Medication Instructions Recorded Confirmed alprazolam 0.5 mg tablet 0.5 mg PO PRN PRN Anxiety 05/02/22 08/06/22 amlodipine 2.5 mg tablet 2.5 mg PO HS 05/02/22 08/09/22 carvedilol 3.125 mg tablet 3.125 mg PO BID 05/02/22 08/09/22 cholecalciferol (vitamin D3) 100 5,000 mcg PO DAILY 05/02/22 08/09/22 mcg (4,000 unit) tablet lisinopril 40 mg tablet 40 mg PO QAM 05/02/22 08/09/22 ascorbic acid (vitamin C) 500 mg 1,000 mg PO DAILY 07/26/22 08/09/22 tablet (Vitamin C) ciprofloxacin 500 mg/5 mL oral 500 mg PO BID 07/26/22 08/09/22 suspension ferrous sulfate 325 mg (65 mg 325 mg PO DAILY@0800 07/26/22 08/09/22 iron) tablet omega 4-gxh-uej-fish oil 1,200 mg 1 cap PO DAILY 07/26/22 08/09/22 (144 mg-216 mg) capsule (Fish Oil) acetaminophen 500 mg tablet 500 mg PO Q6H PRN Pain 08/06/22 08/09/22 (Acetaminophen Extra Strength) Allergies Allergy/AdvReac Type Severity Reaction Status Date / Time hydrocodone AdvReac Mild DISORIENTAT Verified 08/09/22 07:28 ION diazepam AdvReac Unknown disorientat Verified 08/09/22 07:28 ion PMFSH Past Medical History Medical History Anxiety Bladder cancer Hx of recurrent urinary tract infection Hypertension Hypokalemia Neurogenic bladder PONV (postoperative nausea and vomiting) Surgical History Surgical History H/O hysterectomy for benign disease Hx of cataract extraction S/P cystoscopy S/P total knee arthroplasty Bilateral Family History Family History Mother Hx of heart surgery Cerebrovascular accident Family history of arthritis Family history of mental disorder Hypertension Father Family history of alcoholism Grandparent Family history of arthritis Social History Social History Social History: The patient is and has 2 children. The patient continues to work at a bank. Lifelong nonsmoker does does not use any alcohol marijuana or illicit drugs. Code status full code Smoking status: Never smoker Smoking end date: 02/12/1964 Alcohol intake: never Substance use: never Substance use type: does not use Lack of Transportation: No Lack of Food: Never True Current Housing: I Have Housing Concerned About Future Housing: No Difficulty Paying Gas/Electric Bills: No Difficulty Paying for Meds: No Currently Unemployed: No Education: High School Diploma/GED Difficulty w/ Childcare or Family Care: No Living arrangements: with family Additional living arrangements comments: DAUGHTER-AARON Gender identity (if verbalized by the patient): Female Spiritual care concerns: No Exam Narrative: APPEARANCE: No apparent distress. Head: atraumatic. EYES: EOMI, NOSE: Atraumatic NECK: Trachea midline RESPIRATORY: No increased rate of breathing, CTAB CARDIOVASCULAR: RRR, ABDOMINAL: tenderness to palpation in the suprapubic area. no CVA tenderness. MUSCULOSKELETAl: No obvious deformities NEURO: Alert. Moving 4/4 extremities SKIN:: Warm,
[2022-09-01 19:51] LABS: Basophils Absolute Auto 0.1 K/mm3 (0.0-0.1); Basophils Percent Auto 0.4 % (0.2-1.2); Eosinophils Absolute Auto 0.3 K/mm3 (0-0.3); Eosinophils Percent Auto 1.7 % (0-4.4); Hematocrit 33.5 % (37.0-47.0); Hemoglobin 10.9 g/dL (12.0-15.0); Immature Granulocyte Absolute 0.17 K/mm3 (0.00-0.031); Lymphocytes Percent Auto 7.3 % (18.3-44.2); Mean Corpuscular HGB Conc 32.5 g/dl (32-36); Mean Corpuscular Hemoglobin 26.9 pg (26-34); Mean Corpuscular Volume 82.7 fl (80-100); Mean Platelet Volume 8.8 fl (7.4-10.4); Monocytes Absolute Auto 1.6 K/mm3 (0.1-0.6); Monocytes Percent Auto 9.2 % (2.6-8.5); Neutrophils Absolute Auto 14.2 K/mm3 (1.3-6.7); Neutrophils Percent Auto 80.4 % (45.5-73.1); Platelet Count Result 374 k/mm3 (150-375); Red Blood Count 4.05 M/mm3 (4.2-5.4); Red Cell Distribution Width 15.1 % (11.5-14.5); White Blood Count 17.7 K/mm3 (4.5-10.0)
[2022-09-01 20:03] LABS: Alanine Aminotransferase 18 U/L (6-35); Albumin Level 3.5 g/dL (3.5-5.1); Alkaline Phosphatase 93 U/L (38-126); Anion Gap 12 mmol/L (8-16); Aspartate Amino Transferase 27 U/L (14-36); Bilirubin,Total 0.2 mg/dL (0.2-1.3); Blood Urea Nitrogen 25 mg/dL (7-17); Calcium 9.6 mg/dL (8.4-10.2); Carbon Dioxide 21 mmol/L (22-30); Chloride 99 mmol/L (98-107); Estimated CRCL calculation 32 ml/min; Estimated Glomerular Filt Rate 39; Glucose 100 mg/dL (65-110); Potassium 4.7 mmol/L (3.4-5.0); Sodium 132 mmol/L (137-145)
[2022-09-02] VITALS (7 sets, daily range): BP systolic 156; BP diastolic 79; O2SAT 95–99
[2022-09-02 00:12] LABS: Appearance Urine Turbid (Clear); Bacteria Urine 4+ /hpf; Bilirubin Urine Negative (Negative); Blood Urine 3+ (Negative); Color Urine Yellow (Yellow); Glucose Urine UA Negative (Negative); Ketones Urine Trace mg/dL (Negative); Leukocyte Esterase Ur 3+ LEU/UL (Negative); Need Manual Microscopic Reviewed; Nitrate Urine Negative (Negative); Protein Urine 3+ mg/dL (Negative); RBC Urine >100 /hpf (0-2); Specific Grav Ur 1.015 (1.001-1.035); Squamous Epithelial Cell Urine None seen /hpf (Few); Urobilinogen Urine 0.2 mg/dL (<2.0); WBC Urine >100 /hpf; pH Urine 7.5 (5.0-9.0)
[2022-09-02 00:31] LABS: Add Urine Microscopic? YES
== END 2022-09-02 02:25 | disposition short-term general hospital (02) ==
PROVIDERS: Emergency Medicine; Emergency Provider Emergency Medicine; PCP Physician Assistant
DX: C67.9 Malignant neoplasm of bladder, unspecified (principal); N30.90 Cystitis, unspecified without hematuria; N13.30 Unspecified hydronephrosis; I10 Essential (primary) hypertension; N31.9 Neuromuscular dysfunction of bladder, unspecified; F41.9 Anxiety disorder, unspecified; Z96.653 Presence of artificial knee joint, bilateral; Z87.440 Personal history of urinary (tract) infections; Z87.891 Personal history of nicotine dependence; Z90.710 Acquired absence of both cervix and uterus; Z98.49 Cataract extraction status, unspecified eye; R93.41 Abnormal radiologic findings on diagnostic imaging of renal pelvis, ureter, or bladder; K56.41 Fecal impaction; K20.90 Esophagitis, unspecified without bleeding; K29.70 Gastritis, unspecified, without bleeding
CPT/HCPCS: 36415; 74177; 80053; 81001; 85025; 87086; 96365; 99285; A9270; Q9967

== ENCOUNTER 2022-11-10 17:56 | Emergency (ER) | payer OTHER, MEDICARE, SELFPAY ==
--- NOTE | ~2022-11-10 | CT_ITS ---
EXAMINATION: CT diagnostic chest w con DATE: 11/10/2022 19:47 INDICATION: Lung mass TECHNIQUE: Computed tomography (CT) of the chest was performed with 100 mL Omnipaque-350 intravenous contrast. Automated exposure control and iterative reconstruction technique were employed. The dose-l ength product was 274.33 mGy-cm. COMPARISON: CT abdomen and pelvis 09/01/2022. FINDINGS: CHEST: Thoracic aorta: No significant dilation or calcification. Lung parenchyma and airways: Innumerable pulmonary nodules, involving all lobes. The airways are jean r. Notably, no abnormality is present in the lung bases in the prior CT. Thoracic inlet, axillae and chest wall: No thyroid or soft tissue mass. No axillary lymphadenopathy. Mediastinum: No mass or lymphadenopathy. Heart and pericardium: Mild cardiomegaly. Mitral calcification. Coronary artery calcifications: Mild. Pleura: Bilateral pleural-based masses, the largest is present in the right upper chest, measuring 4. 9 x 2.9 cm. Upper abdomen: No significant finding. Thoracic bones: No acute osseous finding in the chest. No lytic or blastic lesions. IMPRESSION: Diffuse pulmonary nodules and pleural-based masses, concerning for metastatic disease. Reviewed, dictated and finalized at location K. IMPRESSION: Diffuse pulmonary nodules and pleural-based masses, concerning for metastatic d isease.
--- NOTE | ~2022-11-10 | XR_ITS ---
EXAMINATION: XR chest 1V portable Exam Date/Time: 11/10/2022 18:14 CDT HISTORY: weakness Comparison: 05/27/2016; CT abdomen pelvis 09/01/2022. RESULT: Lines, tubes, and devices: None. Lungs and pleura: Multiple bilateral pulmonary nodules. Possible pleural-based mass in the right upp er hemithorax. Cardiomediastinal silhouette: Unremarkable. Other: No acute osseous or upper abdominal finding. IMPRESSION: Multiple new pulmonary nodules concerning for metastatic disease. Possible pleural-based mass in the right hemithorax. Consider CT of the chest with contrast for further evaluation. Reviewed, dictated and finalized at location K. IMPRESSION: Multiple new pulmonary nodules concerning for metastatic disease. Possible pleu ral-based mass in the right hemithorax. Consider CT of the chest with contrast for further evaluation.
[2022-11-10 17:59] VITALS: PULSE 85; RESP 15; O2SAT 100
--- NOTE | 2022-11-10 18:05 | ECG_ITS ---
Measurements Intervals [place] Rate: 80 P: 68 TN: 139 QRS: 1 QRSD: 87 T: 29 QT: 406 QTc: 470 Interpretive Statements SINUS RHYTHM CANNOT RULE OUT SEPTAL INFARCT, AGE INDETERMINATE BASELINE ARTIFACT- I, II, III, AVR, AVL, AVF, V1-V6 ABNORMAL ECG COMPARED TO ECG 05/07/2022 22:17:41 NO SIGNIFICANT CHANGES Electronically Signed On 11-10-2022 20:38:42 CDT by Curtis Burton D.O.
[2022-11-10 18:41] LABS: Hematocrit 32.9 % (37.0-47.0); Hemoglobin 10.7 g/dL (12.0-15.0); Mean Corpuscular HGB Conc 32.5 g/dl (32-36); Mean Corpuscular Hemoglobin 27.5 pg (26-34); Mean Corpuscular Volume 84.6 fl (80-100); Mean Platelet Volume 8.3 fl (7.4-10.4); Platelet Count Result 245 k/mm3 (150-375); Red Blood Count 3.89 M/mm3 (4.2-5.4); Red Cell Distribution Width 20.3 % (11.5-14.5); White Blood Count 13.1 K/mm3 (4.5-10.0)
--- NOTE | 2022-11-10 18:55 | ED.GENADULT ---
HPI - General Adult General Chief complaint: Weakness Stated complaint: weakness Time Seen by Provider: 11/10/22 18:18 History of Present Illness HPI narrative: Patient is an 82-year-old female who presents to the emergency department this afternoon complaining of generalized weakness and hematuria. Patient admits that she does have a history of bladder cancer and has underwent multiple sessions of radiation. She currently has a bilateral nephrostomy tubes and an indwelling Rodriguez catheter. Patient states that the catheter gets replaced every month and it is due to be replaced in approximately 2 weeks with her urologist. Patient used to see one of our urologist, however, she now follows up with a urologist at an outside facility. Patient states that what prompted her to come to the emergency department today is that yesterday she noticed that the urine in her Rodriguez is bloody. She admits that she does take a blood thinner, Eliquis, due to a history of a blood clots. Patient states that in the past few days she has had diarrhea requiring her to strain frequently and is concerned that that may have precipitated the bloody urine. Patient is currently denying any pain other than feeling generally weak. Patient denies any chest pain, shortness of breath, nausea, vomiting, abdominal pain, dysuria, hematuria, constipation, diarrhea, melena, hematochezia, fevers or chills. She also denies any headaches, dizziness, lightheadedness, blurry visions, dizziness, focal weakness, numbness and or tingling. There are no other modifying, alleviating, or precipitating factors at this time. Related Data Home Medications Medication Instructions Recorded Confirmed alprazolam 0.5 mg tablet 0.5 mg PO PRN PRN Anxiety 05/02/22 08/06/22 amlodipine 2.5 mg tablet 2.5 mg PO HS 05/02/22 08/09/22 carvedilol 3.125 mg tablet 3.125 mg PO BID 05/02/22 08/09/22 cholecalciferol (vitamin D3) 100 5,000 mcg PO DAILY 05/02/22 08/09/22 mcg (4,000 unit) tablet lisinopril 40 mg tablet 40 mg PO QAM 05/02/22 08/09/22 ascorbic acid (vitamin C) 500 mg 1,000 mg PO DAILY 07/26/22 08/09/22 tablet (Vitamin C) ciprofloxacin 500 mg/5 mL oral 500 mg PO BID 07/26/22 08/09/22 suspension ferrous sulfate 325 mg (65 mg 325 mg PO DAILY@0800 07/26/22 08/09/22 iron) tablet omega 2-pbc-rij-fish oil 1,200 mg 1 cap PO DAILY 07/26/22 08/09/22 (144 mg-216 mg) capsule (Fish Oil) acetaminophen 500 mg tablet 500 mg PO Q6H PRN Pain 08/06/22 08/09/22 (Acetaminophen Extra Strength) Allergies Allergy/AdvReac Type Severity Reaction Status Date / Time hydrocodone AdvReac Mild DISORIENTAT Verified 08/09/22 07:28 ION diazepam AdvReac Unknown disorientat Verified 08/09/22 07:28 ion Review of Systems Review of Systems: All systems are reviewed and are negative unless stated otherwise in the HPI. [facility] Past Medical History Medical History Anxiety Bladder cancer Hx of recurrent urinary tract infection Hypertension Hypokalemia Neurogenic bladder PONV (postoperative nausea and vomiting) Surgical History Surgical History H/O hysterectomy for benign disease Hx of cataract extraction S/P cystoscopy S/P total knee arthroplasty Bilateral Family History Family History Mother Hx of heart surgery Cerebrovascular accident Family history of arthritis Family history of mental disorder Hypertension Father Family history of alcoholism Grandparent Family history of arthritis Social History Social History Social History: The patient is and has 2 children. The patient continues to work at a [employer]. Lifelong nonsmoker does does not use any alcohol marijuana or illicit drugs. Code status full code Smoking status: Never smoker S
[2022-11-10 18:59] LABS: Appearance Urine Cloudy (Clear); Bacteria Urine 4+ /hpf; Bilirubin Urine Negative (Negative); Blood Urine 3+ (Negative); Color Urine Yellow (Yellow); Glucose Urine UA Negative (Negative); Ketones Urine Negative (Negative); Leukocyte Esterase Ur 1+ LEU/UL (Negative); Nitrate Urine Positive (Negative); Non Pathogenic Casts 0-2; Protein Urine 2+ mg/dL (Negative); RBC Urine >100 /hpf (0-2); Specific Grav Ur 1.019 (1.001-1.035); Squamous Epithelial Cell Urine Occasional /hpf (Few); Urobilinogen Urine 0.2 mg/dL (<2.0); pH Urine 6.5 (5.0-9.0)
[2022-11-10 19:02] LABS: Add Urine Microscopic? YES
[2022-11-10 19:07] LABS: Alanine Aminotransferase 12 U/L (6-35); Albumin Level 2.8 g/dL (3.5-5.1); Alkaline Phosphatase 89 U/L (38-126); Anion Gap 6 mmol/L (8-16); Aspartate Amino Transferase 16 U/L (14-36); Bilirubin,Total 0.5 mg/dL (0.2-1.3); Blood Urea Nitrogen 8 mg/dL (7-17); Calcium 7.6 mg/dL (8.4-10.2); Carbon Dioxide 24 mmol/L (22-30); Chloride 101 mmol/L (98-107); Estimated CRCL calculation 63 ml/min; Estimated Glomerular Filt Rate > 60; Glucose 139 mg/dL (65-110); Potassium 3.7 mmol/L (3.4-5.0); Sodium 131 mmol/L (137-145)
[2022-11-10 19:18] LABS: Band Neutrophils Percent 7 % (0-6); Lymphocytes Absolute Manual 0.13 K/mm3 (1.1-4.5); Monocytes Absolute Manual 0.78 K/mm3 (0.1-0.90); Monocytes Percent Manual 6 % (3-9); Neutrophils Absolute Manual 12.18 K/mm3 (1.7-7.2); Neutrophils Percent Manual 86 % (46-73); Platelet Estimate Adequate (Adequate); Schistocytes None Seen (NORMAL); Total Cells Counted 100
[2022-11-10 19:19] LABS: Anisocytosis 3+ (NORMAL)
--- NOTE | 2022-11-10 19:26 | PC.NURSE ---
Report received from NATALIYA Nieto. Assumed care of patient at this time. Patient taken to CT at this time, CBI ongoing.
--- NOTE | 2022-11-10 20:02 | PC.NURSE ---
Went to give fentanyl that was ordered, patient stated she does have 2 fentanyl patches on, a 25mcg and a 12mcg on. ERP notified, was told to hold IVP fentanyl at this time. Patient states pain is 5/10 at this time.
--- NOTE | 2022-11-10 20:45 | PC.NURSE ---
Called patients daughter Chitra, to inform her of patients disposition and that she will need to be taken home. Chitra states she will be on her way up here soon.
[2022-11-10 21:23] LABS: INR 1.7; Partial Thromboplastin Time 29.1 SECONDS (22.3-36.8); Prothrombin Time 21.5 Seconds (11.1-14.7)
[2022-11-10 22:15] VITALS: BP 129/75; PULSE 83; RESP 15; O2SAT 96
== END 2022-11-10 22:22 | disposition home or self-care (01) ==
PROVIDERS: Emergency Medicine; Emergency Provider Emergency Medicine; PCP Physician Assistant
DX: N39.0 Urinary tract infection, site not specified (principal); R91.8 Other nonspecific abnormal finding of lung field; R31.9 Hematuria, unspecified; I10 Essential (primary) hypertension; N31.9 Neuromuscular dysfunction of bladder, unspecified; F41.9 Anxiety disorder, unspecified; Z93.6 Other artificial openings of urinary tract status; Z96.653 Presence of artificial knee joint, bilateral; Z85.51 Personal history of malignant neoplasm of bladder; Z92.3 Personal history of irradiation; Z87.440 Personal history of urinary (tract) infections; Z90.710 Acquired absence of both cervix and uterus; Z98.49 Cataract extraction status, unspecified eye; R94.31 Abnormal electrocardiogram [ECG] [EKG]
CPT/HCPCS: 36415; 71045; 71260; 80053; 81001; 85025; 85610; 85730; 86850; 86900; 86901; 87086; 87147; 87181; 87186; 93005; 96365; 99284; J0696; Q9967

== ENCOUNTER 2022-11-20 17:32 | Inpatient (IN) | payer OTHER, MEDICARE, SELFPAY ==
--- NOTE | ~2022-11-20 | XR_ITS ---
EXAMINATION: XR chest 2V DATE: 11/20/2022 18:32 INDICATION: Weakness TECHNIQUE: AP and lateral views of the chest are obtained. COMPARISON: 11/10/2022 FINDINGS: The lungs are free of acute opacities. Again noted are multiple pulmonary nodules including an approximately 7 cm pleural-based nodule of the right upper lobe. No pleural effusion or pneumotho rax. The cardiomediastinal silhouette is normal. There is mild thoracic spondylosis. IMPRESSION: 1. No acute cardiopulmonary abnormality. 2. Multiple pulmonary nodules concerning for metastatic disease. Reviewed, dictated and finalized at location F.
--- NOTE | ~2022-11-20 | US_ITS ---
EXAMINATION: US renal BI DATE: 11/26/2022 15:46 INDICATION: Hydronephrosis. TECHNIQUE: Multiple ultrasound grayscale images of the kidneys were obtained. COMPARISON: CT abdomen and pelvis 09/01/2022 FINDINGS: The right kidney measures 11.4 x 6.0 x 6.5 cm. The left kidney measures 10.6 x 5.4 x 5.1 cm. The kidn eys demonstrate normal parenchymal echogenicity. There is a 2.8 cm cyst in left kidney. There is no h ydronephrosis. The bladder is decompressed by a Rodriguez catheter. There is severe bladder wall thickeni ng.. IMPRESSION: 1. Normal kidney sizes. No hydronephrosis. 2. Severe wall thickening of the bladder, consistent with urothelial carcinoma. Reviewed, dictated and finalized at location E.
[2022-11-20 17:39] VITALS: BP 138/73; PULSE 73; RESP 12; TEMP 36.5; O2SAT 97
--- NOTE | 2022-11-20 18:03 | ECG_ITS ---
Measurements Intervals [place] Rate: 75 P: 46 [place]: 176 QRS: -8 QRSD: 90 T: 22 QT: 401 QTc: 449 Interpretive Statements SINUS RHYTHM NORMAL ECG COMPARED TO ECG 11/10/2022 18:12:05 NO SIGNIFICANT CHANGES Electronically Signed On 11-21-2022 10:27:49 CDT by Easton Webb M.D.
[2022-11-20 18:15] VITALS: PULSE 78
[2022-11-20 18:31] LABS: Hematocrit 31.9 % (37.0-47.0); Hemoglobin 10.4 g/dL (12.0-15.0); Mean Corpuscular HGB Conc 32.6 g/dl (32-36); Mean Corpuscular Hemoglobin 26.9 pg (26-34); Mean Corpuscular Volume 82.6 fl (80-100); Mean Platelet Volume 8.1 fl (7.4-10.4); Platelet Count Result 278 k/mm3 (150-375); Red Blood Count 3.86 M/mm3 (4.2-5.4); Red Cell Distribution Width 20.3 % (11.5-14.5); White Blood Count 9.5 K/mm3 (4.5-10.0)
[2022-11-20 18:35] LABS: Appearance Urine Cloudy (Clear); Bilirubin Urine Negative (Negative); Blood Urine 3+ (Negative); Color Urine Other (Yellow); Glucose Urine UA Negative (Negative); Ketones Urine Trace mg/dL (Negative); Leukocyte Esterase Ur 3+ LEU/UL (Negative); Nitrate Urine Negative (Negative); Protein Urine 3+ mg/dL (Negative); Specific Grav Ur >= 1.030 (1.001-1.035); Urobilinogen Urine 0.2 mg/dL (<2.0)
[2022-11-20 18:41] LABS: Alanine Aminotransferase 11 U/L (6-35); Albumin Level 2.2 g/dL (3.5-5.1); Alkaline Phosphatase 91 U/L (38-126); Anion Gap 2 mmol/L (8-16); Aspartate Amino Transferase 15 U/L (14-36); Bilirubin,Total 0.5 mg/dL (0.2-1.3); Blood Urea Nitrogen 11 mg/dL (7-17); Calcium 7.3 mg/dL (8.4-10.2); Carbon Dioxide 24 mmol/L (22-30); Chloride 101 mmol/L (98-107); Estimated CRCL calculation 57 ml/min; Estimated Glomerular Filt Rate > 60; Glucose 102 mg/dL (65-110); Potassium 3.4 mmol/L (3.4-5.0); Sodium 127 mmol/L (137-145)
[2022-11-20 18:57] LABS: Troponin I < 0.012 ng/mL (0.000-0.034)
[2022-11-20 19:10] LABS: WBC Urine >100 /hpf (0-3)
[2022-11-20 19:11] LABS: Squamous Epithelial Cell Urine None seen /hpf (Few)
[2022-11-20 19:13] LABS: Add Urine Microscopic? YES; Bacteria Urine Unable to determine /hpf
[2022-11-20 19:21] LABS: Band Neutrophils Percent 14 % (0-6); Lymphocytes Absolute Manual 0.57 K/mm3 (1.1-4.5); Monocytes Absolute Manual 0.76 K/mm3 (0.1-0.90); Monocytes Percent Manual 8 % (3-9); Neutrophils Absolute Manual 8.17 K/mm3 (1.7-7.2); Neutrophils Percent Manual 72 % (46-73); Platelet Estimate Adequate (Adequate); Schistocytes None Seen (NORMAL); Total Cells Counted 100
[2022-11-20 19:22] LABS: Anisocytosis 3+ (NORMAL)
--- NOTE | 2022-11-20 19:24 | ED.WEAKNESS ---
HPI - Weakness General Chief complaint: Weakness Stated complaint: weakness Time Seen by Provider: 11/20/22 17:51 History of Present Illness HPI Narrative: Patient is an 82-year-old female with history of bladder cancer, hypertension here with generalized weakness. She states that last week she was struggling with a significant amount of diarrhea and nausea and she has had some decreased p.o. intake. She was started on Compazine from her doctor and this seems to be helping with her nausea. She notes continued decreased p.o. intake and she typically just drinks Gatorade throughout the day. She denies any changes in her output from her bilateral nephrostomy tubes for her catheter. She states that over the last 2 days she seems to be generally weak. she denies any lateralizing symptoms. She notes that her physical therapist is working with her today at home and she was unable to get up without assistance. She typically is able to walk around the house with her walker. She lives at home with her daughter and gets home care. She is not currently on any chemo or radiation. No fever, chills, cough, congestion, shortness of breath. She follows with [facility] of [place]. Related Data Home Medications Medication Instructions Recorded Confirmed alprazolam 0.5 mg tablet 0.5 mg PO PRN PRN Anxiety 05/02/22 08/06/22 amlodipine 2.5 mg tablet 2.5 mg PO HS 05/02/22 08/09/22 carvedilol 3.125 mg tablet 3.125 mg PO BID 05/02/22 08/09/22 cholecalciferol (vitamin D3) 100 5,000 mcg PO DAILY 05/02/22 08/09/22 mcg (4,000 unit) tablet lisinopril 40 mg tablet 40 mg PO QAM 05/02/22 08/09/22 ascorbic acid (vitamin C) 500 mg 1,000 mg PO DAILY 07/26/22 08/09/22 tablet (Vitamin C) ciprofloxacin 500 mg/5 mL oral 500 mg PO BID 07/26/22 08/09/22 suspension ferrous sulfate 325 mg (65 mg 325 mg PO DAILY@0800 07/26/22 08/09/22 iron) tablet omega 2-yxg-zvw-fish oil 1,200 mg 1 cap PO DAILY 07/26/22 08/09/22 (144 mg-216 mg) capsule (Fish Oil) acetaminophen 500 mg tablet 500 mg PO Q6H PRN Pain 08/06/22 08/09/22 (Acetaminophen Extra Strength) Allergies Allergy/AdvReac Type Severity Reaction Status Date / Time hydrocodone AdvReac Mild DISORIENTAT Verified 11/20/22 17:43 ION diazepam AdvReac Unknown disorientat Verified 11/20/22 17:43 ion Review of Systems Review of Systems: All systems reviewed & are unremarkable except as noted in HPI and below PMFSH Past Medical History Medical History Anxiety Bladder cancer Hx of recurrent urinary tract infection Hypertension Hypokalemia Neurogenic bladder PONV (postoperative nausea and vomiting) Surgical History Surgical History H/O hysterectomy for benign disease Hx of cataract extraction S/P cystoscopy S/P total knee arthroplasty Bilateral Family History Family History Mother Hx of heart surgery Cerebrovascular accident Family history of arthritis Family history of mental disorder Hypertension Father Family history of alcoholism Grandparent Family history of arthritis Social History Social History Social History: The patient is and has 2 children. The patient continues to work at a bank. Lifelong nonsmoker does does not use any alcohol marijuana or illicit drugs. Code status full code Smoking status: Never smoker Smoking end date: 02/12/1964 Alcohol intake: never Substance use: never Substance use type: does not use Lack of Transportation: No Lack of Food: Never True Current Housing: I Have Housing Concerned About Future Housing: No Difficulty Paying Gas/Electric Bills: No Difficulty Paying for Meds: No Currently Unemployed: No Education: High School Diploma/GED Difficulty w/ Childcare or Famil
[2022-11-20 20:14] LABS: Influenza A QL RT-PCR Negative (Negative); Influenza B QL RT-PCR Negative (Negative); RSV RNA, RT-PCR Negative (Negative); SARS-CoV-2 RNA PCR Negative (Negative)
--- NOTE | 2022-11-20 20:35 | PM.IMHP ---
H&P: HPI History of Present Illness Date/Time: 11/20/22 20:35 Chief Complaint: Generalized weakness Narrative: This is an 82-year-old female with past medical history significant for atrial fibrillation rate controlled anticoagulated, bladder cancer, generalized anxiety disorder, hypertension. Patient presents to the emergency room due to generalized weakness. Patient presents to the emergency room due to nausea vomiting diarrhea decreased per orally intake poor appetite was seen by her primary care physician who placed her on Compazine which seemed to help but continued to have symptoms. Preliminary workup is significant for urinalysis with numerous WBCs present. Chemistry panel was significant for sodium 127, influenza type A, influenza type B COVID and RSV were negative. Patient was started on Rocephin in the emergency room is now admitted for further evaluation management and treatment. EXAMINATION: XR chest 2V DATE: 11/20/2022 18:32 INDICATION: Weakness TECHNIQUE: AP and lateral views of the chest are obtained. COMPARISON: 11/10/2022 FINDINGS: The lungs are free of acute opacities. Again noted are multiple pulmonary nodules including an approximately 7 cm pleural-based nodule of the right upper lobe. No pleural effusion or pneumothorax. The cardiomediastinal silhouette is normal. There is mild thoracic spondylosis. IMPRESSION: 1. No acute cardiopulmonary abnormality. 2. Multiple pulmonary nodules concerning for metastatic disease. Review of Systems Review of Systems: Generalized weakness, nausea, vomiting, diarrhea, poor per orally intake, poor appetite. Constitutional: Constitutional: Reports chills, Reports fatigue, Reports malaise, Reports poor appetite and Reports weakness Eyes: Eyes: Denies change in vision ENT: Denies dysphagia, Denies nasal congestion, Denies nasal discharge and Denies odynophagia Cardiovascular: Cardiovascular: Denies chest pain, Denies leg edema, Denies radiating jaw, neck or arm pain and Denies dyspnea Respiratory: Respiratory: Denies chest congestion, Denies cough, Denies dyspnea and Denies wheezing Gastrointestinal: Gastrointestinal: Denies abdominal pain, Denies melena, Denies coffee ground emesis, Denies dyspepsia, Denies heartburn, Reports diarrhea, Reports nausea and Reports vomiting Genitourinary: Genitourinary: Denies dysuria and Denies flank pain Musculoskeletal: Musculoskeletal: Reports myalgias and Reports muscle weakness Integumentary/Breasts: Skin/Breast: Denies rash Neurologic: Denies abnormal gait, Denies focal weakness and Denies Sensory deficit (Neuro) Psychiatric: Psychiatric: Reports no additional psychiatric complaints and Reports as per HPI Endocrine: Endocrine: Denies cold intolerance, Denies fatigue, Denies flushing, Denies heat intolerance, Denies polyphagia, Denies polydipsia and Denies palpitations Hematologic/Lymphatic: Hematologic/Lymphatic: Denies no additional hematologic/lymphatic complaints and Denies as per HPI Allergic/Immunologic: Allergic/Immunologic: Denies no additional allergic/immunologic complaints and Denies as per HPI PMFSH Past Medical History Medical History Anxiety Bladder cancer Hx of recurrent urinary tract infection Hypertension Hypokalemia Neurogenic bladder PONV (postoperative nausea and vomiting) Surgical History Surgical History H/O hysterectomy for benign disease Hx of cataract extraction S/P cystoscopy S/P total knee arthroplasty Bilateral Family History Family History Mother Hx of heart surgery Cerebrovascular accident Family history of arthritis Family history of mental disorder Hypertension Father Family history of alcoholism Grandparent Family history of arthritis Social History Social History (Reviewed 08/09/22 @
[2022-11-20] MEDS: SODIUM CHLORIDE 0.9% IV 1,000 ML 999 ML IV CONT (20:59)
--- NOTE | 2022-11-20 21:16 | PC.NURSE ---
Updated pt's daughter Marion.
[2022-11-20 21:29] LABS: Troponin I < 0.012 ng/mL (0.000-0.034)
[2022-11-20 23:15] VITALS: BP 154/78; PULSE 78; RESP 16; TEMP 36; O2SAT 98
[2022-11-20 23:29] VITALS: BMI 27.8
--- NOTE | 2022-11-20 23:42 | ADMGEN ---
This patient, Nydia Goldman, was admitted to [facility] Room 316-02. Patient/family oriented to hospital policies and general routines including ID bracelet, bed and alarms, visiting hours, pain management, procedures, bathroom and other care routines, personal items, smoking policy, room service/diet, and visiting hours. Information on how to activate the Rapid Response Team has been discussed. Patient/Family are encouraged to report perceived risks to care and to ask questions if they do not understand what they are told or what they should do.
[2022-11-21] MEDS: VANCOMYCIN 1,250 MG/NS 250 ML 1,250 MG/250 ML BAG 166.67 MG IVPB (01:00)
[2022-11-21 06:00] VITALS: BP 143/71; PULSE 82; RESP 16; TEMP 35.9; O2SAT 98
[2022-11-21 07:04] LABS: Estimated CRCL calculation 64 ml/min; Estimated Glomerular Filt Rate > 60
[2022-11-21 08:45] VITALS: PULSE 82
[2022-11-21] MEDS: FAMOTIDINE 10 MG TABLET PO (08:45)
[2022-11-21] MEDS: PANTOPRAZOLE 40 MG TABLET PO (08:45)
[2022-11-21] MEDS: FERROUS SULFATE 325 MG TABLET DR PO (08:45)
[2022-11-21] MEDS: carvediloL 3.125 MG TABLET PO ×2 (08:45→21:46)
[2022-11-21] MEDS: APIXABAN 5 MG TABLET PO ×2 (08:45→21:46)
[2022-11-21] MEDS: ESCITALOPRAM OXALATE 10 MG TABLET PO (08:45)
[2022-11-21] MEDS: TOLNAFTATE 1% POWDER 45 GM BTL 1 APPLIC TOPICAL ×2 (08:46→21:51)
[2022-11-21 10:21] LABS: Hematocrit 30.4 % (37.0-47.0); Mean Corpuscular HGB Conc 32.9 g/dl (32-36); Mean Corpuscular Hemoglobin 27.2 pg (26-34); Mean Corpuscular Volume 82.6 fl (80-100); Mean Platelet Volume 8.6 fl (7.4-10.4); Platelet Count Result 284 k/mm3 (150-375); Red Blood Count 3.68 M/mm3 (4.2-5.4); Red Cell Distribution Width 20.5 % (11.5-14.5)
[2022-11-21 10:42] LABS: Anisocytosis 2+ (NORMAL); Band Neutrophils Percent 20 % (0-6); Lymphocytes Absolute Manual 0.08 K/mm3 (1.1-4.5); Lymphocytes Percent Manual 1 % (18-44); Monocytes Absolute Manual 0.16 K/mm3 (0.1-0.90); Monocytes Percent Manual 2 % (3-9); Neutrophils Absolute Manual 7.76 K/mm3 (1.7-7.2); Neutrophils Percent Manual 77 % (46-73); Platelet Estimate Adequate (Adequate); Total Cells Counted 100
[2022-11-21 10:43] LABS: Burr Cells 3+ (NORMAL); Schistocytes None Seen (NORMAL)
[2022-11-21 10:47] LABS: Anion Gap 5 mmol/L (8-16); Blood Urea Nitrogen 9 mg/dL (7-17); Calcium 6.9 mg/dL (8.4-10.2); Carbon Dioxide 20 mmol/L (22-30); Chloride 105 mmol/L (98-107); Estimated CRCL calculation 55 ml/min; Estimated Glomerular Filt Rate > 60; Glucose 81 mg/dL (65-110); Magnesium 1.2 mg/dL (1.6-2.3); Sodium 130 mmol/L (137-145)
--- NOTE | 2022-11-21 11:07 | PM.IMPN ---
Progress Note: A&P Assessment and Plan (1) Acute lower UTI: Code(s): N39.0 - Urinary tract infection, site not specified Status: Acute (2) Generalized weakness: Code(s): R53.1 - Weakness Status: Acute (3) Malignant neoplasm of overlapping sites of bladder: Code(s): C67.8 - Malignant neoplasm of overlapping sites of bladder Status: Acute Plan 82F w/ PMH a fib on AC, bladder cancer, HTN, generalized anxiety presented with nausea and vomiting and weakness. Admitted on 11/20 for UTI 1) UTI w/o sepsis - failed outpatient abx. urine culture from ED visit on 11/10 reveal MRS - contact precautions, continue ceftriaxone and vancomycin until urine culture results - nausea and vomiting resolved 2) hyponatremia - chronic. improved from 127-130. ctm - check urine lytes and urine/serum osmolality 3) hypokalemia - likely 2/2 vomiting - replace 60meq today, recheck in AM 4) hypocalcemia - check ionized calcium 5) hypomagnesemia - replace 4G rider and recheck in AM DNR stable. on AC for a fib Subjective Date/time seen: 11/21/22 11:07 Interval history: NAOE. patient is content, resting. she denies any pain, shortness of breath, nausea or vomiting Review of Systems Cardiovascular: Cardiovascular: Denies chest pain and Denies dyspnea Respiratory: Respiratory: Denies cough and Denies dyspnea Gastrointestinal: Gastrointestinal: Denies abdominal pain and Denies vomiting Exam Const: General: no acute distress, alert and Physically active Resp: Effort & Inspection: normal respiratory effort Auscultation: clear to auscultation bilaterally Cardio: Rate: regular rate Rhythm: regular rhythm Heart sounds: S1 normal heart sound present and S2 normal heart sound present GI: Inspection: non-distended GI Palp: No abdominal tenderness Auscultation: normal bowel sounds Extrem: Right upper extremity: no edema Objective Data Vital Signs Vital Signs: Vital Signs - 24 hr 11/20/22 17:39 11/20/22 18:15 11/20/22 23:15 Temperature 97.7 F 96.8 F L Pulse Rate 73 78 78 Respiratory Rate 12 16 Blood Pressure 138/73 154/78 H Pulse Oximetry 97 98 Oxygen Delivery Room Air 11/21/22 06:00 11/21/22 08:45 11/21/22 08:00 Temperature 96.7 F L Pulse Rate 82 82 Respiratory Rate 16 Blood Pressure 143/71 H Pulse Oximetry 98 Oxygen Delivery Room Air Intake/Output Intake/Output: Intake & Output 11/18/22 11/19/22 11/20/22 11/21/22 23:59 23:59 23:59 23:59 Intake Total 470 Output Total 200 Balance 270 Meds/Results Medications: Active Medications Generic Name Dose Route Start Last Admin Trade Name Freq PRN Reason Stop Dose Admin Apixaban 5 mg 11/21/22 09:00 11/21/22 08:45 Apixaban 5 Mg Tablet PO 5 mg Q12HR NAOMI Administration Carvedilol 3.125 mg 11/21/22 09:00 11/21/22 08:45 Carvedilol 3.125 Mg Tablet PO 3.125 mg Q12HR NAOMI Administration Escitalopram Oxalate 10 mg 11/21/22 09:00 11/21/22 08:45 Escitalopram Oxalate 10 Mg Tablet PO 10 mg DAILY NAOMI Administration Famotidine 10 mg 11/21/22 09:00 11/21/22 08:45 Famotidine 10 Mg Tablet PO 10 mg DAILY NOAMI Administration Ferrous Sulfate 325 mg 11/21/22 09:00 11/21/22 08:45 Ferrous Sulfate [address] PO 12/21/22 08:59 325 mg DAILY NAOMI Administration Vancomycin HCl 1,250 mg in 250 mls @ 166.667 mls/hr 11/20/22 21:00 11/21/22 02:30 Vancomycin 1,250 Mg/Ns 250 Ml IVPB Infused Q24H NAOMI Infusion Ondansetron HCl 4 mg 11/21/22 02:34 Ondansetron Inj 4 Mg/2 Ml Vial IV PUSH Q6H PRN Nausea And Vomiting Oxycodone HCl 1 - 2 mg 11/21/22 02:34 Oxycodone Hcl (*Crx) 5 Mg Tab Ir PO Q4H PRN Pain Pantoprazole Sodium 40 mg 11/21/22 09:00 11/21/22 08:45 Pantoprazole 40 Mg Tablet PO 40 mg QAM NAOMI Administration Tolnaftate 1 applic 11/21/22 09:00 11/21/22 08:46 Tolnaftate 1% Powder 45 Gm Btl TOPICAL 1
[2022-11-21 12:31] VITALS: BMI 27.8
--- NOTE | 2022-11-21 13:00 | P.CDI_ITS ---
severe protein calorie malnutrition CDI Query Clarification Request BMI 27.8 Nutritional Diagnostic Statement Severe protein calorie malnutrition related to chronic bladder cancer, diarrhea and nausea as evidenced by 14% weight loss/4 months, inadequate intake <75% needs > 1 month, NFPE findings of moderate muscle loss. Please refer to the comprehensive nutrition assessment for further information. Please clarify severity of protein calorie malnutrition if known: * Mild * Moderate * Severe * Other/ unspecified
[2022-11-21 14:00] VITALS: BP 149/72; PULSE 80; RESP 16; TEMP 36.1; O2SAT 96
[2022-11-21] MEDS: MAGNESIUM SULF 4 GM/WATER100ML 4 GM/100 ML BAG IVPB (14:40)
[2022-11-21] MEDS: POTASSIUM CHLORIDE 20 MEQ ER TABLET PO (14:41)
[2022-11-21] MEDS: POTASSIUM CHLORIDE 20 MEQ ER TABLET 40 MEQ PO (15:32)
[2022-11-21] MEDS: ONDANSETRON INJ 4 MG/2 ML VIAL IV PUSH (17:59)
[2022-11-21 20:40] VITALS: BP 104/56; PULSE 85; RESP 18; TEMP 36.7; O2SAT 95
[2022-11-21] MEDS: VANCOMYCIN 1,250 MG/NS 250 ML 1,250 MG/250 ML BAG 167 MG IVPB (21:45)
[2022-11-21 21:46] VITALS: PULSE 85
[2022-11-22 05:44] VITALS: BP 115/55; PULSE 67; RESP 15; TEMP 36.3; O2SAT 96
[2022-11-22 07:04] LABS: Estimated CRCL calculation 55 ml/min; Estimated Glomerular Filt Rate > 60; Phosphorus 3.2 mg/dL (2.5-4.5)
[2022-11-22 07:31] LABS: Procalcitonin 0.3 ng/mL
[2022-11-22 08:03] VITALS: O2SAT 96
[2022-11-22 08:37] VITALS: PULSE 67
[2022-11-22] MEDS: carvediloL 3.125 MG TABLET PO ×2 (08:37→21:53)
[2022-11-22] MEDS: APIXABAN 5 MG TABLET PO ×2 (08:37→21:53)
[2022-11-22] MEDS: FAMOTIDINE 10 MG TABLET PO (08:37)
[2022-11-22] MEDS: ESCITALOPRAM OXALATE 10 MG TABLET PO (08:37)
[2022-11-22] MEDS: PANTOPRAZOLE 40 MG TABLET PO (08:38)
[2022-11-22] MEDS: TOLNAFTATE 1% POWDER 45 GM BTL 1 APPLIC TOPICAL ×2 (08:38→21:53)
[2022-11-22] MEDS: FERROUS SULFATE 325 MG TABLET DR PO (08:38)
--- NOTE | 2022-11-22 11:17 | PM.IMPN ---
Progress Note: A&P Assessment and Plan (1) Acute lower UTI: Code(s): N39.0 - Urinary tract infection, site not specified Status: Acute (2) Generalized weakness: Code(s): R53.1 - Weakness Status: Acute (3) Malignant neoplasm of overlapping sites of bladder: Code(s): C67.8 - Malignant neoplasm of overlapping sites of bladder Status: Acute (4) Hypokalemia: Code(s): E87.6 - Hypokalemia Status: Acute (5) Bladder cancer: Code(s): C67.9 - Malignant neoplasm of bladder, unspecified Status: Acute Plan 82F w/ PMH a fib on AC, bladder cancer, chronic indwelling carrera catheter, HTN, generalized anxiety presented with nausea and vomiting and weakness. Admitted on 11/20 for UTI 1) UTI w/o sepsis - failed outpatient abx. urine culture from ED visit on 11/10 reveal MRSA. keep vancomycin on and switch to PO abx tomorrow. WBC normal but in setting of cancer she has increasing bands, would be ideal to monitor this for one more day. - contact precautions - nausea and vomiting resolved 2) hyponatremia - chronic. improved from 127-130. ctm - check urine lytes and urine/serum osmolality 3) hypokalemia - likely 2/2 vomiting. still 3.0 on 11/22 - replace 40meq po and 40meq IV. recheck tomorrow AM 4) hypocalcemia - check ionized calcium 5) hypomagnesemia - resolved 6) a fib - rate controlled - continue coreg and eliquis FEN: saline lock IV GI prophylaxis: protonix DVT prophylaxis: on eliquis Lines: pIV Code Status: DNR Dispo: stable. pending discharge home once paramaters stabilize More than 25 minutes spent on chart review, patient interaction and assessment and plan. Subjective Date/time seen: 11/22/22 11:17 Interval history: NAOE. patient denies bladder pain, sob or chest pain. Review of Systems Cardiovascular: Cardiovascular: Denies chest pain and Denies dyspnea Respiratory: Respiratory: Denies cough and Denies dyspnea Gastrointestinal: Gastrointestinal: Denies abdominal pain and Denies vomiting Exam Const: General: no acute distress, alert and Physically active Resp: Effort & Inspection: normal respiratory effort Auscultation: clear to auscultation bilaterally Cardio: Rate: regular rate Rhythm: regular rhythm Heart sounds: S1 normal heart sound present and S2 normal heart sound present GI: Inspection: non-distended GI Palp: No abdominal tenderness Auscultation: normal bowel sounds Extrem: Right upper extremity: no edema Objective Data Vital Signs Vital Signs: Vital Signs - 24 hr 11/21/22 14:00 11/21/22 20:40 11/21/22 21:46 Temperature 97.0 F L 98.0 F Pulse Rate 80 85 85 Respiratory Rate 16 18 Blood Pressure 149/72 H 104/56 L Pulse Oximetry 96 95 Oxygen Delivery 11/22/22 05:44 11/22/22 08:03 11/22/22 08:37 Temperature 97.3 F L Pulse Rate 67 67 Respiratory Rate 15 Blood Pressure 115/55 L Pulse Oximetry 96 96 Oxygen Delivery Room Air 11/22/22 08:00 Temperature Pulse Rate Respiratory Rate Blood Pressure Pulse Oximetry Oxygen Delivery Room Air Intake/Output Intake/Output: Intake & Output 11/19/22 11/20/22 11/21/22 11/22/22 23:59 23:59 23:59 23:59 Intake Total 840 480 Output Total 700 125 Balance 140 355 Meds/Results Medications: Active Medications Generic Name Dose Route Start Last Admin Trade Name Freq PRN Reason Stop Dose Admin Apixaban 5 mg 11/21/22 09:00 11/22/22 08:37 Apixaban 5 Mg Tablet PO 5 mg Q12HR NAOMI Administration Carvedilol 3.125 mg 11/21/22 09:00 11/22/22 08:37 Carvedilol 3.125 Mg Tablet PO 3.125 mg Q12HR NAOMI Administration Escitalopram Oxalate 10 mg 11/21/22 09:00 11/22/22 08:37 Escitalopram Oxalate 10 Mg Tablet PO 10 mg DAILY NAOMI Administration Famotidine 10 mg 11/21/22 09:00 11/22/22 08:37 Famotidine 10 Mg Tablet PO 10 mg DAILY NAOMI Administration Ferrous Sulfate 325 mg 11/21/22 09:00 11/22/22 0
[2022-11-22] MEDS: POTASSIUM CHLORIDE INJ 40 MEQ in SODIUM CHLORIDE 0.9% IV 500 ML 130 MEQ IVPB (11:58)
[2022-11-22] MEDS: POTASSIUM CHLORIDE 20 MEQ ER TABLET 40 MEQ PO (11:58)
[2022-11-22] MEDS: LOPERAMIDE HCL 2 MG CAPSULE 4 MG PO (14:59)
[2022-11-22 20:00] VITALS: PULSE 67; RESP 15; O2SAT 96
[2022-11-22 21:07] LABS: Vancomycin Trough 11.2 ug/mL (10.0-20.0)
[2022-11-22 21:36] VITALS: BP 123/61; PULSE 81; RESP 12; TEMP 36.2; O2SAT 98
[2022-11-22] MEDS: VANCOMYCIN 1,250 MG/NS 250 ML 1,250 MG/250 ML BAG 166 MG IVPB (21:52)
[2022-11-23 05:52] VITALS: BP 125/69; PULSE 66; RESP 16; TEMP 35.7; O2SAT 99
[2022-11-23 06:19] LABS: Hemoglobin 10.5 g/dL (12.0-15.0); Mean Corpuscular HGB Conc 32.8 g/dl (32-36); Mean Corpuscular Hemoglobin 27.1 pg (26-34); Mean Corpuscular Volume 82.7 fl (80-100); Mean Platelet Volume 8.1 fl (7.4-10.4); Platelet Count Result 274 k/mm3 (150-375); Red Blood Count 3.87 M/mm3 (4.2-5.4); Red Cell Distribution Width 21.1 % (11.5-14.5); White Blood Count 10.4 K/mm3 (4.5-10.0)
[2022-11-23 06:22] LABS: Anion Gap 0 mmol/L (8-16); Blood Urea Nitrogen 13 mg/dL (7-17); Calcium 7.1 mg/dL (8.4-10.2); Carbon Dioxide 24 mmol/L (22-30); Chloride 105 mmol/L (98-107); Estimated CRCL calculation 55 ml/min; Estimated Glomerular Filt Rate > 60; Glucose 115 mg/dL (65-110); Magnesium 1.9 mg/dL (1.6-2.3); Potassium 4.1 mmol/L (3.4-5.0); Sodium 129 mmol/L (137-145)
[2022-11-23 07:02] LABS: Band Neutrophils Percent 32 % (0-6); Hypochromasia 2+ (NORMAL); Lymphocytes Absolute Manual 0.31 K/mm3 (1.1-4.5); Monocytes Percent Manual 1 % (3-9); Neutrophils Absolute Manual 9.98 K/mm3 (1.7-7.2); Neutrophils Percent Manual 64 % (46-73); Platelet Estimate Adequate (Adequate); Total Cells Counted 100
[2022-11-23 07:04] LABS: Schistocytes None Seen (NORMAL)
[2022-11-23 07:05] LABS: Tear Drop Cells 1+ (NORMAL)
[2022-11-23] MEDS: carvediloL 3.125 MG TABLET PO ×2 (08:13→20:15)
[2022-11-23] MEDS: TOLNAFTATE 1% POWDER 45 GM BTL 1 APPLIC TOPICAL ×2 (08:14→20:18)
[2022-11-23] MEDS: PANTOPRAZOLE 40 MG TABLET PO (08:14)
[2022-11-23] MEDS: ESCITALOPRAM OXALATE 10 MG TABLET PO (08:14)
[2022-11-23] MEDS: FERROUS SULFATE 325 MG TABLET DR PO (08:14)
[2022-11-23] MEDS: FAMOTIDINE 10 MG TABLET PO (08:14)
[2022-11-23] MEDS: APIXABAN 5 MG TABLET PO ×2 (08:14→20:16)
--- NOTE | 2022-11-23 08:43 | ECG_ITS ---
Measurements Intervals [place] Rate: 69 P: 87 NH: 165 QRS: -12 QRSD: 85 T: 25 QT: 380 QTc: 410 Interpretive Statements SINUS RHYTHM NORMAL ECG COMPARED TO ECG 11/20/2022 19:36:01 NO SIGNIFICANT CHANGES Electronically Signed On 11-23-2022 13:59:46 CDT by Easton Webb M.D.
--- NOTE | 2022-11-23 08:44 | PM.IMPN ---
Progress Note: A&P Assessment and Plan (1) Acute lower UTI: Code(s): N39.0 - Urinary tract infection, site not specified Status: Acute (2) Generalized weakness: Code(s): R53.1 - Weakness Status: Acute (3) Malignant neoplasm of overlapping sites of bladder: Code(s): C67.8 - Malignant neoplasm of overlapping sites of bladder Status: Acute Plan 82F w/ PMH a fib on AC, recurrent bladder cancer, chronic indwelling carrera catheter, HTN, generalized anxiety presented with nausea and vomiting and weakness. Admitted on 11/20 for UTI 1) UTI w/o sepsis - failed outpatient abx. urine culture from ED visit on 11/10 reveal MRSA. - vancomycin started since admission, bandemia increasing, white count increasing. add ciprofloxacin, recheck urinarlysis and blood cultures. this is all in light of extensive urological history including bladder cancer, tumor resection and post surgery bleeding. and her immunocompromised status. - contact precautions 2) hyponatremia - chronic. CTM 3) hypokalemia - resolved on 11/23 4) hypocalcemia - check ionized calcium 5) hypomagnesemia - resolved on 11/22 6) a fib - rate controlled - continue coreg and eliquis FEN: saline lock IV. full diet GI prophylaxis: protonix DVT prophylaxis: on eliquis Lines: pIV Code Status: DNR Dispo: stable More than 35 minutes spent on chart review, patient interaction and assessment and plan. Subjective Date/time seen: 11/23/22 08:44 Interval history: NAOE. she complains of nausea, but no fever or vomiting. no abdominal pain and no urinary symptoms Review of Systems Cardiovascular: Cardiovascular: Denies chest pain and Denies dyspnea Respiratory: Respiratory: Denies cough and Denies dyspnea Gastrointestinal: Gastrointestinal: Denies abdominal pain, Reports nausea and Denies vomiting Exam Const: General: no acute distress, alert and Physically active Resp: Effort & Inspection: normal respiratory effort Auscultation: clear to auscultation bilaterally Cardio: Rate: regular rate Rhythm: regular rhythm Heart sounds: S1 normal heart sound present and S2 normal heart sound present GI: Inspection: non-distended GI Palp: No abdominal tenderness Auscultation: normal bowel sounds Extrem: Right upper extremity: no edema Objective Data Vital Signs Vital Signs: Vital Signs - 24 hr 11/22/22 20:00 11/22/22 21:36 11/23/22 05:52 Temperature 97.1 F L 96.2 F L Pulse Rate 67 81 66 Respiratory Rate 15 12 16 Blood Pressure 123/61 125/69 Pulse Oximetry 96 98 99 Oxygen Delivery Room Air Intake/Output Intake/Output: Intake & Output 11/20/22 11/21/22 11/22/22 11/23/22 23:59 23:59 23:59 23:59 Intake Total 840 1280 390 Output Total 700 425 250 Balance 140 855 140 Meds/Results Medications: Active Medications Generic Name Dose Route Start Last Admin Trade Name Freq PRN Reason Stop Dose Admin Apixaban 5 mg 11/21/22 09:00 11/23/22 08:14 Apixaban 5 Mg Tablet PO 5 mg Q12HR NAOMI Administration Carvedilol 3.125 mg 11/21/22 09:00 11/23/22 08:13 Carvedilol 3.125 Mg Tablet PO 3.125 mg Q12HR NAOMI Administration Escitalopram Oxalate 10 mg 11/21/22 09:00 11/23/22 08:14 Escitalopram Oxalate 10 Mg Tablet PO 10 mg DAILY NAOMI Administration Famotidine 10 mg 11/21/22 09:00 11/23/22 08:14 Famotidine 10 Mg Tablet PO 10 mg DAILY NAOMI Administration Ferrous Sulfate 325 mg 11/21/22 09:00 11/23/22 08:14 Ferrous Sulfate [address] PO 12/21/22 08:59 325 mg DAILY NAOMI Administration Vancomycin HCl 1,250 mg in 250 mls @ 166.667 mls/hr 11/20/22 21:00 11/22/22 21:52 Vancomycin 1,250 Mg/Ns 250 Ml IVPB 166 mls/hr Q24H NAOMI Administration Loperamide HCl 4 mg 11/21/22 18:43 11/22/22 14:59 Loperamide Hcl 2 Mg Capsule PO 4 mg PRN PRN Administration Diarrhea Ondansetron HCl 4 mg 11/21/22 02:34 11/21/22 17:59 Ondansetron Inj 4 Mg/2 Ml Vi
[2022-11-23] MEDS: CIPROFLOXACIN 400 MG/D5W 200ML 200 ML 200 MG IVPB ×2 (09:44→20:17)
[2022-11-23 11:12] LABS: Appearance Urine Turbid (Clear); Bacteria Urine 2+ /hpf; Bilirubin Urine Negative (Negative); Blood Urine 3+ (Negative); Color Urine Dark Yellow (Yellow); Glucose Urine UA Negative (Negative); Ketones Urine Negative (Negative); Leukocyte Esterase Ur Trace LEU/UL (Negative); Mucus Urine Present /lpf; Need Manual Microscopic Reviewed; Nitrate Urine Positive (Negative); Non Pathogenic Casts >20; Protein Urine 1+ mg/dL (Negative); RBC Urine >100 /hpf (0-2); Specific Grav Ur 1.026 (1.001-1.035); Squamous Epithelial Cell Urine Many /hpf (Few); Urobilinogen Urine 0.2 mg/dL (<2.0)
[2022-11-23 11:30] LABS: Appearance Urine Turbid (Clear); Bilirubin Urine Negative (Negative); Blood Urine 3+ (Negative); Color Urine Dark Yellow (Yellow); Glucose Urine UA Negative (Negative); Ketones Urine Negative (Negative); Leukocyte Esterase Ur 3+ LEU/UL (Negative); Nitrate Urine Negative (Negative); Protein Urine 3+ mg/dL (Negative); Specific Grav Ur 1.011 (1.001-1.035); Urobilinogen Urine 0.2 mg/dL (<2.0); pH Urine 6.5 (5.0-9.0)
[2022-11-23 11:35] LABS: Add Urine Microscopic? YES
[2022-11-23 11:38] LABS: Add Urine Microscopic? YES
[2022-11-23 11:39] LABS: Bacteria Urine 3+ /hpf; RBC Urine >100 /hpf (0-2); WBC Urine >100 /hpf
[2022-11-23 11:40] LABS: WBC Clumps Urine Present /hpf
[2022-11-23 13:29] VITALS: BP 114/59; PULSE 74; RESP 16; TEMP 36.7; O2SAT 98
[2022-11-23] MEDS: LOPERAMIDE HCL 2 MG CAPSULE 4 MG PO ×2 (16:29→17:41)
[2022-11-23 19:43] VITALS: PULSE 74; RESP 16; O2SAT 98
[2022-11-23] MEDS: VANCOMYCIN 1,250 MG/NS 250 ML 1,250 MG/250 ML BAG 166 MG IVPB (20:17)
[2022-11-23 21:20] VITALS: BP 144/73; PULSE 82; RESP 14; TEMP 35.9; O2SAT 98
[2022-11-24 06:00] VITALS: BP 153/81; PULSE 79; RESP 14; TEMP 35.6; O2SAT 98
[2022-11-24 07:02] LABS: Basophils Percent Auto 0.4 % (0.2-1.2); Eosinophils Absolute Auto 0.1 K/mm3 (0-0.3); Eosinophils Percent Auto 1.1 % (0-4.4); Hemoglobin 10.6 g/dL (12.0-15.0); Immature Granulocyte Absolute 0.09 K/mm3 (0.00-0.031); Immature Granulocyte Percent A 0.9 % (0-0.5); Lymphocytes Absolute Auto 0.33 K/mm3 (0.9-3.2); Lymphocytes Percent Auto 3.3 % (18.3-44.2); Mean Corpuscular HGB Conc 32.1 g/dl (32-36); Mean Corpuscular Volume 84.2 fl (80-100); Mean Platelet Volume 8.6 fl (7.4-10.4); Monocytes Absolute Auto 0.8 K/mm3 (0.1-0.6); Neutrophils Absolute Auto 8.7 K/mm3 (1.3-6.7); Neutrophils Percent Auto 86.3 % (45.5-73.1); Platelet Count Result 289 k/mm3 (150-375); Red Blood Count 3.92 M/mm3 (4.2-5.4); Red Cell Distribution Width 20.9 % (11.5-14.5); White Blood Count 10.1 K/mm3 (4.5-10.0)
[2022-11-24 07:20] LABS: Anion Gap 4 mmol/L (8-16); Blood Urea Nitrogen 11 mg/dL (7-17); Calcium 6.8 mg/dL (8.4-10.2); Carbon Dioxide 21 mmol/L (22-30); Chloride 104 mmol/L (98-107); Estimated CRCL calculation 64 ml/min; Estimated Glomerular Filt Rate > 60; Glucose 77 mg/dL (65-110); Magnesium 1.8 mg/dL (1.6-2.3); Potassium 3.5 mmol/L (3.4-5.0); Sodium 129 mmol/L (137-145)
[2022-11-24 07:47] LABS: Procalcitonin 0.1 ng/mL
[2022-11-24] MEDS: CIPROFLOXACIN 400 MG/D5W 200ML 200 ML 200 MG IVPB ×2 (07:54→19:49)
[2022-11-24] MEDS: FAMOTIDINE 10 MG TABLET PO (07:57)
[2022-11-24] MEDS: APIXABAN 5 MG TABLET PO ×2 (07:58→19:52)
[2022-11-24] MEDS: ESCITALOPRAM OXALATE 10 MG TABLET PO (07:58)
[2022-11-24] MEDS: carvediloL 3.125 MG TABLET PO ×2 (07:58→19:52)
[2022-11-24] MEDS: FERROUS SULFATE 325 MG TABLET DR PO (07:58)
[2022-11-24] MEDS: TOLNAFTATE 1% POWDER 45 GM BTL 1 APPLIC TOPICAL ×2 (07:58→19:53)
[2022-11-24] MEDS: PANTOPRAZOLE 40 MG TABLET PO (07:58)
[2022-11-24] MEDS: ONDANSETRON INJ 4 MG/2 ML VIAL IV PUSH ×2 (09:34→19:49)
[2022-11-24 11:23] LABS: Band Neutrophils Percent 5 % (0-6); Monocytes Percent Manual 4 % (3-9); Neutrophils Absolute Manual 9.69 K/mm3 (1.7-7.2); Neutrophils Percent Manual 91 % (46-73); Total Cells Counted 100
[2022-11-24 11:24] LABS: Platelet Estimate Adequate (Adequate); Schistocytes None Seen (NORMAL)
--- NOTE | 2022-11-24 11:39 | PM.IMPN ---
Progress Note: A&P Assessment and Plan (1) Acute lower UTI: Code(s): N39.0 - Urinary tract infection, site not specified Status: Acute (2) Generalized weakness: Code(s): R53.1 - Weakness Status: Acute (3) Malignant neoplasm of overlapping sites of bladder: Code(s): C67.8 - Malignant neoplasm of overlapping sites of bladder Status: Acute Plan 82F w/ PMH a fib on AC, recurrent bladder cancer, chronic indwelling carrera catheter, HTN, generalized anxiety presented with nausea and vomiting and weakness. Admitted on 11/20 for UTI 1) UTI w/o sepsis - failed outpatient abx. urine culture from ED visit on 11/10 reveal MRSA. vancomycin started on admission. on 11/22, ciprofloxacin also added. repeat carrera catheter and urostomy bag cultures due to increasing white count. on 11/24 white count decreasing as well as bands. - if tomorrow her lab parameters are good and she feels the same/better, plan to d/c home with home health resumption 2) hyponatremia - chronic. CTM 3) hypokalemia - resolved on 11/23 4) hypocalcemia - check ionized calcium, pending 5) hypomagnesemia - resolved on 11/22 6) a fib - rate controlled - continue coreg and eliquis FEN: saline lock IV. full diet GI prophylaxis: protonix DVT prophylaxis: on eliquis Lines: pIV Code Status: DNR Dispo: stable More than 25 minutes spent on chart review, patient interaction and assessment and plan. Subjective Date/time seen: 11/24/22 11:39 Interval history: NAOE. pt has some nausea still. denies abdominal pain, chest pain, or sob Review of Systems Review of Systems: All systems reviewed & are unremarkable except as noted in HPI and below Exam Const: General: comfortable and no acute distress Resp: Effort & Inspection: normal respiratory effort Auscultation: clear to auscultation bilaterally Cardio: Rate: regular rate Rhythm: regular rhythm GI: GI Palp: Yes Soft to palpation, No Tenderness to palpation present (GI) and No Guarding due to palpation present (GI) Extrem: General: no edema Objective Data Vital Signs Vital Signs: Vital Signs - 24 hr 11/23/22 13:29 11/23/22 19:43 11/23/22 21:20 Temperature 98.1 F 96.7 F L Pulse Rate 74 74 82 Respiratory Rate 16 16 14 Blood Pressure 114/59 L 144/73 H Pulse Oximetry 98 98 98 Oxygen Delivery Room Air 11/24/22 06:00 11/24/22 08:00 Temperature 96.0 F L Pulse Rate 79 Respiratory Rate 14 Blood Pressure 153/81 H Pulse Oximetry 98 Oxygen Delivery Room Air Intake/Output Intake/Output: Intake & Output 11/21/22 11/22/22 11/23/22 11/24/22 23:59 23:59 23:59 23:59 Intake Total 840 1530 1530 568 Output Total 700 425 315 Balance 140 1105 1215 568 Meds/Results Medications: Active Medications Generic Name Dose Route Start Last Admin Trade Name Freq PRN Reason Stop Dose Admin Apixaban 5 mg 11/21/22 09:00 11/24/22 07:58 Apixaban 5 Mg Tablet PO 5 mg Q12HR NAOMI Administration Carvedilol 3.125 mg 11/21/22 09:00 11/24/22 07:58 Carvedilol 3.125 Mg Tablet PO 3.125 mg Q12HR NAOMI Administration Escitalopram Oxalate 10 mg 11/21/22 09:00 11/24/22 07:58 Escitalopram Oxalate 10 Mg Tablet PO 10 mg DAILY NAOMI Administration Famotidine 10 mg 11/21/22 09:00 11/24/22 07:57 Famotidine 10 Mg Tablet PO 10 mg DAILY NAOMI Administration Ferrous Sulfate 325 mg 11/21/22 09:00 11/24/22 07:58 Ferrous Sulfate [address] PO 12/21/22 08:59 325 mg DAILY NAOMI Administration Vancomycin HCl 1,250 mg in 250 mls @ 166.667 mls/hr 11/20/22 21:00 11/23/22 20:17 Vancomycin 1,250 Mg/Ns 250 Ml IVPB 166 mls/hr Q24H NAOMI Administration Ciprofloxacin/Dextrose 200 mls @ 200 mls/hr 11/23/22 09:00 11/24/22 08:54 Cipro 400 Mg/D5w 200 Ml IVPB Infused Q12HR NAOMI Infusion Loperamide HCl 4 mg 11/21/22 18:43 11/23/22 17:41 Loperamide Hcl 2 Mg Capsule PO 4 mg PRN PRN Administration Diarrhea
[2022-11-24 14:00] VITALS: BP 118/67; PULSE 71; RESP 22; TEMP 36.8; O2SAT 97
[2022-11-24 19:52] VITALS: PULSE 68
[2022-11-24 19:58] LABS: Ionized Calcium 4.5 mg/dL (4.7-5.5)
[2022-11-24] MEDS: oxyCODONE HCL (*CRX) 5 MG TAB IR PO (20:25)
[2022-11-24] MEDS: VANCOMYCIN 1,250 MG/NS 250 ML 1,250 MG/250 ML BAG 166 MG IVPB (21:02)
[2022-11-24 22:00] VITALS: BP 119/62; PULSE 63; RESP 18; TEMP 36.1; O2SAT 99
[2022-11-25 05:57] VITALS: BP 128/68; PULSE 73; RESP 14; TEMP 35.8; O2SAT 98
[2022-11-25 06:15] LABS: Basophils Percent Auto 0.4 % (0.2-1.2); Eosinophils Absolute Auto 0.1 K/mm3 (0-0.3); Hematocrit 32.6 % (37.0-47.0); Hemoglobin 10.6 g/dL (12.0-15.0); Immature Granulocyte Absolute 0.07 K/mm3 (0.00-0.031); Immature Granulocyte Percent A 0.6 % (0-0.5); Lymphocytes Percent Auto 1.8 % (18.3-44.2); Mean Corpuscular HGB Conc 32.5 g/dl (32-36); Mean Corpuscular Hemoglobin 27.6 pg (26-34); Mean Corpuscular Volume 84.9 fl (80-100); Monocytes Absolute Auto 0.8 K/mm3 (0.1-0.6); Monocytes Percent Auto 7.4 % (2.6-8.5); Neutrophils Percent Auto 88.8 % (45.5-73.1); Platelet Count Result 246 k/mm3 (150-375); Red Blood Count 3.84 M/mm3 (4.2-5.4); Red Cell Distribution Width 21.1 % (11.5-14.5); White Blood Count 11.2 K/mm3 (4.5-10.0)
[2022-11-25 06:27] LABS: Anion Gap 3 mmol/L (8-16); Blood Urea Nitrogen 9 mg/dL (7-17); Calcium 6.7 mg/dL (8.4-10.2); Carbon Dioxide 22 mmol/L (22-30); Chloride 104 mmol/L (98-107); Estimated CRCL calculation 64 ml/min; Estimated Glomerular Filt Rate > 60; Glucose 83 mg/dL (65-110); Magnesium 1.6 mg/dL (1.6-2.3); Potassium 3.2 mmol/L (3.4-5.0); Sodium 129 mmol/L (137-145)
[2022-11-25 07:20] LABS: Procalcitonin 0.1 ng/mL
[2022-11-25] MEDS: CIPROFLOXACIN 400 MG/D5W 200ML 200 ML 200 MG IVPB ×2 (09:15→20:53)
[2022-11-25 09:16] VITALS: PULSE 73
[2022-11-25] MEDS: carvediloL 3.125 MG TABLET PO ×2 (09:16→20:56)
[2022-11-25] MEDS: ESCITALOPRAM OXALATE 10 MG TABLET PO (09:16)
[2022-11-25] MEDS: FERROUS SULFATE 325 MG TABLET DR PO (09:16)
[2022-11-25] MEDS: FAMOTIDINE 10 MG TABLET PO (09:16)
[2022-11-25] MEDS: APIXABAN 5 MG TABLET PO ×2 (09:16→20:56)
[2022-11-25] MEDS: PANTOPRAZOLE 40 MG TABLET PO (09:16)
[2022-11-25] MEDS: TOLNAFTATE 1% POWDER 45 GM BTL 1 APPLIC TOPICAL ×2 (09:17→22:52)
[2022-11-25] MEDS: ONDANSETRON INJ 4 MG/2 ML VIAL IV PUSH ×2 (09:25→18:22)
--- NOTE | 2022-11-25 10:10 | PM.IMPN ---
Progress Note: A&P Assessment and Plan (1) Acute lower UTI: Code(s): N39.0 - Urinary tract infection, site not specified Status: Acute (2) Generalized weakness: Code(s): R53.1 - Weakness Status: Acute (3) Malignant neoplasm of overlapping sites of bladder: Code(s): C67.8 - Malignant neoplasm of overlapping sites of bladder Status: Acute Plan 82F w/ PMH a fib on AC, recurrent bladder cancer, chronic indwelling carrera catheter and b/l nephrostomy, HTN, generalized anxiety presented with nausea and vomiting and weakness. Admitted on 11/20 for UTI 1) UTI w/o sepsis - failed outpatient abx. urine culture from ED visit on 11/10 reveal MRSA, unclear if that was from indwelling carrera cath or nephrostomy tube. vancomycin started on admission. on 11/22, ciprofloxacin also added due to increasing white count. repeat urine cultures on 11/23 drawn but it is not clear by the labels which urine is from the indwelling carrera cath and which is from the urostomy. one of them is growing pseudomonas. in any case, will consult urology. consider ID consult if worsens, pt is not toxic appearing currently. redraw urine cultures, i have specified one to be catheterized urine and one to be from each urostomy 2) hyponatremia - chronic. CTM 3) hypokalemia - replace and recheck 4) hypocalcemia - check ionized calcium, pending 5) hypomagnesemia - resolved on 11/22 6) a fib - rate controlled - continue coreg and eliquis FEN: saline lock IV. full diet GI prophylaxis: protonix DVT prophylaxis: on eliquis Lines: pIV Code Status: DNR Dispo: stable More than 35 minutes spent on chart review, patient interaction and assessment and plan. Subjective Date/time seen: 11/25/22 10:10 Interval history: NAOE. pt feels same as yesterday, she thinks her nausea is related to the ABX Review of Systems Cardiovascular: Cardiovascular: Denies chest pain Respiratory: Respiratory: Denies cough Gastrointestinal: Gastrointestinal: Denies abdominal pain Genitourinary: Genitourinary: Denies flank pain Exam Const: General: comfortable, no acute distress and alert Resp: Effort & Inspection: normal respiratory effort Auscultation: clear to auscultation bilaterally Cardio: Rate: regular rate Rhythm: regular rhythm Heart sounds: S1 normal heart sound present and S2 normal heart sound present GI: Inspection: non-distended Auscultation: normal bowel sounds Extrem: General: no edema Objective Data Vital Signs Vital Signs: Vital Signs - 24 hr 11/24/22 14:00 11/24/22 19:52 11/24/22 20:00 Temperature 98.2 F Pulse Rate 71 68 Respiratory Rate 22 H Blood Pressure 118/67 Pulse Oximetry 97 Oxygen Delivery Room Air 11/24/22 22:00 11/25/22 05:57 11/25/22 09:16 Temperature 96.9 F L 96.5 F L Pulse Rate 63 73 73 Respiratory Rate 18 14 Blood Pressure 119/62 128/68 Pulse Oximetry 99 98 Oxygen Delivery 11/25/22 08:00 Temperature Pulse Rate Respiratory Rate Blood Pressure Pulse Oximetry Oxygen Delivery Room Air Intake/Output Intake/Output: Intake & Output 11/22/22 11/23/22 11/24/22 11/25/22 23:59 23:59 23:59 23:59 Intake Total 1530 1780 1518 400 Output Total 425 315 300 450 Balance 1105 1465 1218 -50 Meds/Results Medications: Active Medications Generic Name Dose Route Start Last Admin Trade Name Freq PRN Reason Stop Dose Admin Apixaban 5 mg 11/21/22 09:00 11/25/22 09:16 Apixaban 5 Mg Tablet PO 5 mg Q12HR NAOMI Administration Carvedilol 3.125 mg 11/21/22 09:00 11/25/22 09:16 Carvedilol 3.125 Mg Tablet PO 3.125 mg Q12HR NAOMI Administration Escitalopram Oxalate 10 mg 11/21/22 09:00 11/25/22 09:16 Escitalopram Oxalate 10 Mg Tablet PO 10 mg DAILY NAOMI Administration Famotidine 10 mg 11/21/22 09:00 11/25/22 09:16 Famotidine 10 Mg Tablet PO 10 mg DAILY NAOMI Administration Ferrous Sulfate 325 mg 11/21/22 09:00 11/25/22
[2022-11-25] MEDS: POTASSIUM CHLORIDE 20 MEQ ER TABLET 40 MEQ PO (12:11)
[2022-11-25 14:00] VITALS: BP 137/69; PULSE 63; RESP 18; TEMP 37.2; O2SAT 97
[2022-11-25 18:18] LABS: Glucose Point of Care 95 mg/dl (65-105)
[2022-11-25] MEDS: LOPERAMIDE HCL 2 MG CAPSULE 4 MG PO (18:22)
[2022-11-25 18:43] VITALS: BP 170/77; PULSE 83; O2SAT 98
[2022-11-25 19:51] VITALS: BP 173/85; PULSE 84; RESP 16; TEMP 36.4; O2SAT 100
[2022-11-25 20:56] VITALS: PULSE 84
[2022-11-25] MEDS: oxyCODONE HCL (*CRX) 5 MG TAB IR PO (20:57)
[2022-11-25] MEDS: VANCOMYCIN 1,250 MG/NS 250 ML 1,250 MG/250 ML BAG 166 MG IVPB (22:54)
[2022-11-26 04:24] VITALS: BP 153/76; PULSE 83; RESP 16; TEMP 36.9; O2SAT 94
[2022-11-26 06:42] LABS: Hematocrit 30.7 % (37.0-47.0); Hemoglobin 10.1 g/dL (12.0-15.0); Mean Corpuscular HGB Conc 32.9 g/dl (32-36); Mean Corpuscular Hemoglobin 26.9 pg (26-34); Mean Corpuscular Volume 81.9 fl (80-100); Mean Platelet Volume 7.7 fl (7.4-10.4); Platelet Count Result 224 k/mm3 (150-375); Red Blood Count 3.75 M/mm3 (4.2-5.4); Red Cell Distribution Width 20.9 % (11.5-14.5); White Blood Count 9.9 K/mm3 (4.5-10.0)
[2022-11-26 07:09] LABS: Procalcitonin 0.1 ng/mL
[2022-11-26 07:18] LABS: Anion Gap 1 mmol/L (8-16); Blood Urea Nitrogen 8 mg/dL (7-17); Calcium 6.7 mg/dL (8.4-10.2); Carbon Dioxide 24 mmol/L (22-30); Chloride 104 mmol/L (98-107); Estimated CRCL calculation 55 ml/min; Estimated Glomerular Filt Rate > 60; Glucose 81 mg/dL (65-110); Magnesium 1.6 mg/dL (1.6-2.3); Potassium 3.2 mmol/L (3.4-5.0); Sodium 129 mmol/L (137-145)
[2022-11-26] MEDS: CIPROFLOXACIN 400 MG/D5W 200ML 200 ML 200 MG IVPB (09:04)
[2022-11-26] MEDS: ESCITALOPRAM OXALATE 10 MG TABLET PO (09:09)
[2022-11-26] MEDS: FAMOTIDINE 10 MG TABLET PO (09:09)
[2022-11-26] MEDS: PANTOPRAZOLE 40 MG TABLET PO (09:09)
[2022-11-26] MEDS: FERROUS SULFATE 325 MG TABLET DR PO (09:09)
[2022-11-26] MEDS: APIXABAN 5 MG TABLET PO ×2 (09:09→20:42)
[2022-11-26 09:10] VITALS: PULSE 86
[2022-11-26] MEDS: carvediloL 3.125 MG TABLET PO ×2 (09:10→20:41)
[2022-11-26] MEDS: TOLNAFTATE 1% POWDER 45 GM BTL 1 APPLIC TOPICAL ×2 (09:12→20:43)
[2022-11-26] MEDS: ONDANSETRON INJ 4 MG/2 ML VIAL IV PUSH ×2 (10:13→21:23)
--- NOTE | 2022-11-26 12:13 | WPDURCON ---
Assessment and Plan Assessment and plan (1) Acute lower UTI: Code(s): N39.0 - Urinary tract infection, site not specified Status: Acute Assessment and Plan: Ok to continue IV antibiotics, tailor to culture results from repeat culture. I am concerned she may have colonized bacteria and she is weak secondary to other reasons. (2) Generalized weakness: Code(s): R53.1 - Weakness Status: Acute (3) Malignant neoplasm of overlapping sites of bladder: Code(s): C67.8 - Malignant neoplasm of overlapping sites of bladder Status: Acute Assessment and Plan: Follow up with Oncology as planned. (4) History of bladder cancer: Code(s): Z85.51 - Personal history of malignant neoplasm of bladder Status: Acute Urology Consult Note HPI Date Seen: 11/26/22 Time Seen: 09:00 Requesting Physician: Clary Posey MD Primary Care Provider: Katie Meyer, PA Consult Narrative Reason for consult: Complicated UTI/Bladder Cancer Narrative: Nydia Goldman is a 82 year old female who presented to the ER on 11/20/22 for increased weakness, diarrhea and nausea. She has known bladder cancer and an atonic bladder. She was self catheterizing for several years when she was found to have a large bladder tumor that was blocking the ureteral openings within the last year and there was an attempt to have stents placed which was unsuccessful. She then had bilateral nephrostomy tubes placed and a carrera placed for maximal drainage. She has also been undergoing chemotherapy per recommendation of Dr. Chandler, as a cystectomy is not possible at this time. She has plans to f/u with her Oncologist on 11/30/22 but became too weak to remain at home. She uses a walker at home and ambulates independently. She lives with her daughter. Her most recent Nephrostomy tube exchange was on 10/03/22 at [facility]. She has a normal WBC of 9.9, and creatinine of 0.70. A urine culture was done on 11/10/22 and grew Staph, then on 11/23/22 her urine culture was negative. A new urine culture has been sent on 11/25/22. She continues to c/o weakness, diarrhea and nausea. She has no urinary tract symptoms at this time. Her urine appears to be clear in both nephrostomy tube bags and carrera. She remains on Cipro and Vancomycin at this time and is afebrile. Review of Systems Respiratory: Respiratory: Reports no additional respiratory complaints Gastrointestinal: Gastrointestinal: Denies abdominal pain, Reports diarrhea, Reports nausea and Reports vomiting Genitourinary: Genitourinary: Denies hematuria, Denies dysuria, Denies pelvic pain, Denies flank pain, Denies urinary incontinence, Denies urinary hesitancy and Denies urinary urgency PMFSH Past Medical History Medical History Anxiety Bladder cancer Hx of recurrent urinary tract infection Hypertension Hypokalemia Neurogenic bladder PONV (postoperative nausea and vomiting) Surgical History Surgical History H/O hysterectomy for benign disease Hx of cataract extraction S/P cystoscopy S/P total knee arthroplasty Bilateral Family History Family History Mother Hx of heart surgery Cerebrovascular accident Family history of arthritis Family history of mental disorder Hypertension Father Family history of alcoholism Grandparent Family history of arthritis Social History Social History Social History: The patient is and has 2 children. The patient continues to work at a bank. Lifelong nonsmoker does does not use any alcohol marijuana or illicit drugs. Code status full code Smoking status: Never smoker Second hand tobacco smoke exposure: No Smoking end date: 02/12/1964 Alcohol intake: never Substance use: never
[2022-11-26 14:00] VITALS: BP 121/65; PULSE 76; RESP 16; TEMP 36.9; O2SAT 97
--- NOTE | 2022-11-26 18:37 | PM.IMPN ---
Progress Note: A&P Assessment and Plan (1) Acute lower UTI: Code(s): N39.0 - Urinary tract infection, site not specified Status: Acute (2) Generalized weakness: Code(s): R53.1 - Weakness Status: Acute (3) Malignant neoplasm of overlapping sites of bladder: Code(s): C67.8 - Malignant neoplasm of overlapping sites of bladder Status: Acute (4) Hydronephrosis: Code(s): N13.30 - Unspecified hydronephrosis Status: Acute (5) Hypokalemia: Code(s): E87.6 - Hypokalemia Status: Acute (6) Bladder cancer: Code(s): C67.9 - Malignant neoplasm of bladder, unspecified Status: Acute (7) History of bladder cancer: Code(s): Z85.51 - Personal history of malignant neoplasm of bladder Status: Acute (8) Fecal impaction: Code(s): K56.41 - Fecal impaction Status: Acute (9) Constipation: Qualifiers: Constipation type: unspecified constipation type Qualified Code(s): K59.00 - Constipation, unspecified Code(s): K59.00 - Constipation, unspecified Status: Acute (10) Anemia: Qualifiers: Anemia type: other cause Other causes of anemia: chronic disease, neoplastic Qualified Code(s): D63.0 - Anemia in neoplastic disease Code(s): D64.9 - Anemia, unspecified Status: Acute (11) Fecal impaction: Code(s): K56.41 - Fecal impaction Status: Acute (12) Stercoral colitis: Code(s): K52.89 - Other specified noninfective gastroenteritis and colitis Status: Acute (13) B12 deficiency: Code(s): E53.8 - Deficiency of other specified B group vitamins Status: Acute (14) Abdominal pain: Code(s): R10.9 - Unspecified abdominal pain Status: Acute (15) Acute blood loss anemia: Code(s): D62 - Acute posthemorrhagic anemia Status: Acute (16) Gross hematuria: Code(s): R31.0 - Gross hematuria Status: Acute (17) H/O hysterectomy for benign disease: Code(s): Z90.710 - Acquired absence of both cervix and uterus Status: Acute Plan 1) UTI w/o sepsis - failed outpatient abx. urine culture from ED visit on 11/10 reveal MRSA, unclear if that was from indwelling carrera cath or nephrostomy tube. vancomycin started on admission. on 11/22, ciprofloxacin also added due to increasing white count. repeat urine cultures on 11/23 drawn but it is not clear by the labels which urine is from the indwelling carrera cath and which is from the urostomy. one of them is growing pseudomonas. in any case, will consult urology. consider ID consult if worsens, pt is not toxic appearing currently. redraw urine cultures, i have specified one to be catheterized urine and one to be from each urostomy - has pseudomonas in urine cx, sensitive to cipro. on cipro since 11/23 - vanc 11/20-11/26 stopped 2) hyponatremia - chronic. CTM - a serious issue related to chronic dehydration. she needs massive fluid resuscitation - 1L NS. Needs to have na monitored until this number goes up 3) hypokalemia - replace and recheck - replete with IV K 4) hypocalcemia - needs massive IV calcium resuscitation. starting with 2g Ca Gluconate 5) hypomagnesemia - resolved on 11/22 6) a fib - rate controlled - continue coreg and eliquis 7. 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 full diet GI prophylaxis: protonix DVT prophylaxis: on eliquis Lines: pIV Code Status: DNR Dispo: stable Subjective Date/time seen: 11/26/22 18:37 Interval history: feels extremely weak and lethargic. notes no changes since hospitalization. this pt is extremely dehydrated. also has been having copious diarrhea during hospitalization. Review of Systems Review of Systems: n/a Exam Narrative: Const:?? General: comfortab le, no acute distr ess and alert Resp:??
[2022-11-26] MEDS: SODIUM CHLORIDE 0.9% IV 1,000 ML 100 ML IV CONT (18:49)
[2022-11-26] MEDS: POTASSIUM CHLORIDE INJ 40 MEQ in SODIUM CHLORIDE 0.9% IV 500 ML 130 MEQ IVPB (19:48)
[2022-11-26 20:41] VITALS: PULSE 74
[2022-11-26] MEDS: CIPROFLOXACIN 500 MG TAB PO (20:42)
[2022-11-26 21:19] VITALS: BP 148/66; PULSE 80; RESP 14; TEMP 36.9; O2SAT 97
[2022-11-27] MEDS: CALCIUM GLUC 2,000 MG/NS 100ML 2,000 MG/100 ML BAG 100 MG IVPB ×2 (00:51→09:57)
[2022-11-27] MEDS: ONDANSETRON INJ 4 MG/2 ML VIAL IV PUSH ×3 (02:54→21:09)
[2022-11-27] MEDS: oxyCODONE HCL (*CRX) 5 MG TAB IR PO ×2 (02:54→20:36)
[2022-11-27 03:03] LABS: Toxigenic C. Diff NEGATIVE (NEGATIVE)
[2022-11-27] MEDS: SODIUM CHLORIDE 0.9% IV 1,000 ML 100 ML IV CONT ×2 (05:15→21:08)
[2022-11-27 05:24] VITALS: BP 142/66; PULSE 69; RESP 14; TEMP 36.8; O2SAT 97
[2022-11-27 07:18] LABS: Alanine Aminotransferase 9 U/L (6-35); Albumin Level 1.6 g/dL (3.5-5.1); Alkaline Phosphatase 82 U/L (38-126); Anion Gap 1 mmol/L (8-16); Aspartate Amino Transferase 20 U/L (14-36); Bilirubin,Total 0.4 mg/dL (0.2-1.3); Blood Urea Nitrogen 7 mg/dL (7-17); Calcium 6.9 mg/dL (8.4-10.2); Carbon Dioxide 22 mmol/L (22-30); Chloride 107 mmol/L (98-107); Estimated CRCL calculation 64 ml/min; Estimated Glomerular Filt Rate > 60; Glucose 81 mg/dL (65-110); Potassium 3.2 mmol/L (3.4-5.0); Sodium 130 mmol/L (137-145)
[2022-11-27] MEDS: ESCITALOPRAM OXALATE 10 MG TABLET PO (08:32)
[2022-11-27] MEDS: CIPROFLOXACIN 500 MG TAB PO ×2 (08:32→20:29)
[2022-11-27] MEDS: APIXABAN 5 MG TABLET PO ×2 (08:32→20:28)
[2022-11-27 08:33] VITALS: PULSE 72
[2022-11-27] MEDS: FERROUS SULFATE 325 MG TABLET DR PO (08:33)
[2022-11-27] MEDS: carvediloL 3.125 MG TABLET PO ×2 (08:33→20:34)
[2022-11-27] MEDS: FAMOTIDINE 10 MG TABLET PO (08:33)
[2022-11-27] MEDS: PANTOPRAZOLE 40 MG TABLET PO (08:33)
[2022-11-27] MEDS: TOLNAFTATE 1% POWDER 45 GM BTL 1 APPLIC TOPICAL ×2 (08:34→20:37)
[2022-11-27 09:07] VITALS: PULSE 81; O2SAT 95
--- NOTE | 2022-11-27 09:46 | PM.IMPN ---
Progress Note: A&P Assessment and Plan (1) Acute lower UTI: Code(s): N39.0 - Urinary tract infection, site not specified Status: Acute (2) Generalized weakness: Code(s): R53.1 - Weakness Status: Acute (3) Malignant neoplasm of overlapping sites of bladder: Code(s): C67.8 - Malignant neoplasm of overlapping sites of bladder Status: Acute (4) Hydronephrosis: Code(s): N13.30 - Unspecified hydronephrosis Status: Acute (5) Hypokalemia: Code(s): E87.6 - Hypokalemia Status: Acute (6) Bladder cancer: Code(s): C67.9 - Malignant neoplasm of bladder, unspecified Status: Acute (7) History of bladder cancer: Code(s): Z85.51 - Personal history of malignant neoplasm of bladder Status: Acute (8) Fecal impaction: Code(s): K56.41 - Fecal impaction Status: Acute (9) Constipation: Qualifiers: Constipation type: unspecified constipation type Qualified Code(s): K59.00 - Constipation, unspecified Code(s): K59.00 - Constipation, unspecified Status: Acute (10) Anemia: Qualifiers: Anemia type: other cause Other causes of anemia: chronic disease, neoplastic Qualified Code(s): D63.0 - Anemia in neoplastic disease Code(s): D64.9 - Anemia, unspecified Status: Acute (11) Fecal impaction: Code(s): K56.41 - Fecal impaction Status: Acute (12) Stercoral colitis: Code(s): K52.89 - Other specified noninfective gastroenteritis and colitis Status: Acute (13) B12 deficiency: Code(s): E53.8 - Deficiency of other specified B group vitamins Status: Acute (14) Abdominal pain: Code(s): R10.9 - Unspecified abdominal pain Status: Acute (15) Acute blood loss anemia: Code(s): D62 - Acute posthemorrhagic anemia Status: Acute Plan 1) UTI w/o sepsis - failed outpatient abx. urine culture from ED visit on 11/10 reveal MRSA, unclear if that was from indwelling carrera cath or nephrostomy tube. vancomycin started on admission. on 11/22, ciprofloxacin also added due to increasing white count. repeat urine cultures on 11/23 drawn but it is not clear by the labels which urine is from the indwelling carrera cath and which is from the urostomy. one of them is growing pseudomonas. in any case, will consult urology. consider ID consult if worsens, pt is not toxic appearing currently. redraw urine cultures, i have specified one to be catheterized urine and one to be from each urostomy - has pseudomonas in urine cx, sensitive to cipro. on cipro since 11/23 - vanc 11/20-11/26 stopped - cipro until 12/06 2) hyponatremia - chronic. CTM - a serious issue related to chronic dehydration. she needs massive fluid resuscitation - 1L NS. Needs to have na monitored until this number goes up - improving with continuous NS - ct daily bmp's 3) hypokalemia - replace and recheck - replete with IV K - needs more IV K. keeps losing it in diarrhea 4) hypocalcemia - needs massive IV calcium resuscitation. starting with 2g Ca Gluconate - needs more Ca. ct repletion. 5) hypomagnesemia - resolved on 11/22 6) a fib - rate controlled - continue coreg and eliquis 7. 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 metastatic disease on chest ct have consulted oncology ordered beta hcg, afp, cea, ca19-9, ca125 tumor markers FEN: saline lock IV. full diet GI prophylaxis: protonix DVT prophylaxis: on eliquis Lines: pIV Code Status: DNR Dispo: stable Subjective Date/time seen: 11/27/22 09:46 Interval history: feeling a little better with ivf and electrolytes. ct repleting. needs more protein supplementation. discussed with rn to increase ensure. pt has metastatic disease on chest ct, was not told. have consulted oncology. still having diarrhea, just a little less. Review of Syst
[2022-11-27 10:41] LABS: Carcinoembryonic Antigen 3.2 ng/mL (0.0-3.0)
[2022-11-27] MEDS: POTASSIUM CHLORIDE INJ 40 MEQ in SODIUM CHLORIDE 0.9% IV 500 ML 130 MEQ IVPB ×2 (11:01→15:28)
--- NOTE | 2022-11-27 11:49 | PCNFU ---
Nutrition Follow-Up Complete: Severe protein calorie malnutrition related to chronic bladder cancer, diarrhea and nausea as evidenced by 14% weight loss/4 months, inadequate intake <75% needs >1 month, NFPE findings of moderate muscle loss Goal:Adequate PO intake at least 50% meals and supplements Maintain weight Pt current nutrition is Regular. Nutrition recommendation: Increase Ensure compact to QID Last recorded weight is 75.8 kg. Bowel Motility: +BM 11/27 Labs Reviewed: Hgb:10.1, HCT:30.7, Alb:1.6, NA:130, K:3.2 Meds Noted: Eliquis, zofran, protonix, KCL Skin: no skin issues noted Additional Notes: Pt continues on a regular diet. Consult for additional protein supplementation. Ensure compact increased from BID to QID, pt in agreement, prefers chocolate flavor. Monitoring intakes, weights, supplement tolerance, labs, plan of care Follow up in 5 days
[2022-11-27 14:00] VITALS: BP 132/62; PULSE 70; RESP 16; TEMP 36.3; O2SAT 98
[2022-11-27] MEDS: LOPERAMIDE HCL 2 MG CAPSULE 4 MG PO (14:01)
--- NOTE | 2022-11-27 18:15 | PDONCCN ---
HPI - Date of Consult Date/Time: 11/27/22 18:15 Requesting Physician: Clary Posey MD Primary Care Provider: Katie Meyer, PA - Consult Narrative Reason for consult: Metastatic bladder cancer Narrative: Nydia Goldman is a 82 year old female with history of bladder cancer status post radiation therapy treatment started October 03, 2022 and completed November [address] abdomen and pelvis on October 17 that showed marked thickening of the distal sigmoid and rectum could be secondary to nonspecific colitis along with new pulmonary nodules and tiny right pleural effusion metastatic disease not excluded. There was bilateral percutaneous nephrostomy catheter with no hydroureteronephrosis. Patient came into the hospital with nausea vomiting diarrhea and generalized weakness. UA showed numerous wbc's. Urine culture revealed MRSA. She was started on antibiotic. She remains quite tired and fatigued. Review of Systems - Review of Systems All systems reviewed & are unremarkable except as noted in HPI and bel - Neurologic Reports weakness, Denies abnormal gait, Denies focal weakness, Denies sensory deficit [facility] Medical History: Medical History (Last Reviewed 11/26/22 @ 13:50 by Linda Batista APRN) Anxiety Bladder cancer Hx of recurrent urinary tract infection Hypertension Hypokalemia Neurogenic bladder PONV (postoperative nausea and vomiting) Surgical History: Surgical History (Last Reviewed 11/26/22 @ 13:50 by Linda Batista APRN) H/O hysterectomy for benign disease Hx of cataract extraction S/P cystoscopy S/P total knee arthroplasty Bilateral Family History: Family History (Last Reviewed 11/26/22 @ 13:50 by Linda Batista APRN) Mother Hx of heart surgery Cerebrovascular accident Family history of arthritis Family history of mental disorder Hypertension Father Family history of alcoholism Grandparent Family history of arthritis - Social History Social History: Social History (Last Reviewed 11/26/22 @ 13:50 by Linda Batista APRN) Gender Identity: Gender identity (if verbalized by the patient): Female Alcohol Use: Alcohol intake: never Substance Use: Substance use: never Substance use type: does not use Others: Spiritual care concerns: No Living Arrangements: Living arrangements: with family Smoking Status: Smoking status: Never smoker Second hand tobacco smoke exposure: No Smoking end date: 02/12/1964 Social Determinants of Health: Has the Lack of Transportation Kept You From Medical Appointments or From Getting Medications?: No Within the Past 12 Months, Were You Worried Whether Your Food Would Run Out Before You Got Money to Buy More?: Never True What is Your Housing Situation Today?: I Have Housing Are You Worried That in the Next 2 Months, You May Not Have Your Own Housing to Live In?: No Do You Have Trouble Paying Your Heating Or Electricity Bill?: No Do You Have Trouble Paying For Medicines?: No Are You Currently Unemployed and Looking for Work?: No Highest Level of Education Completed: High School Diploma/GED Do You Have Trouble With Childcare or the Care of a Family Member?: No Exam - Vital Signs Vital Signs - 24 hr 11/26/22 20:41 11/26/22 21:19 11/27/22 05:24 Temperature 36.9 C 36.8 C Pulse Rate 74 80 69 Respiratory Rate 14 14 Blood Pressure 148/66 H 142/66 H Pulse Oximetry 97 97 Oxygen Delivery 11/27/22 08:33 11/27/22 09:07 11/27/22 14:00 Temperature 36.3 C L Pulse Rate 72 81 70 Respiratory Rate 16 Blood Pressure 132/62 Pulse Oximetry 95 98 Oxygen Delivery Room Air - Exam HEENT: EOMI, PERRLA, mucous membranes moist and pink Neck: supple. No: JVD Lungs: clear to auscultation, normal air movement Heart: no murmurs, gallops, or rubs, regular rhythm, regular rate Abdomen: abdomen soft, non-distended, n
[2022-11-27 20:34] VITALS: PULSE 73
[2022-11-27 21:26] VITALS: BP 144/73; PULSE 73; RESP 20; TEMP 36.1; O2SAT 96
[2022-11-28] VITALS (7 sets, daily range): BP systolic 118–153; BP diastolic 64–79; PULSE 73–98; RESP 16–20; TEMP 35.6–36.8; O2SAT 95–98
[2022-11-28] MEDS: SODIUM CHLORIDE 0.9% IV 1,000 ML 100 ML IV CONT ×2 (05:15→14:18)
[2022-11-28 06:12] LABS: Alanine Aminotransferase 10 U/L (6-35); Albumin Level 1.8 g/dL (3.5-5.1); Alkaline Phosphatase 93 U/L (38-126); Anion Gap 2 mmol/L (8-16); Aspartate Amino Transferase 15 U/L (14-36); Bilirubin,Total 0.3 mg/dL (0.2-1.3); Blood Urea Nitrogen 6 mg/dL (7-17); Calcium 7.3 mg/dL (8.4-10.2); Carbon Dioxide 20 mmol/L (22-30); Chloride 110 mmol/L (98-107); Estimated CRCL calculation 64 ml/min; Estimated Glomerular Filt Rate > 60; Glucose 83 mg/dL (65-110); Potassium 3.5 mmol/L (3.4-5.0); Sodium 132 mmol/L (137-145)
[2022-11-28] MEDS: carvediloL 3.125 MG TABLET PO ×2 (09:51→20:19)
[2022-11-28] MEDS: APIXABAN 5 MG TABLET PO ×2 (09:51→20:20)
[2022-11-28] MEDS: ESCITALOPRAM OXALATE 10 MG TABLET PO (09:52)
[2022-11-28] MEDS: FAMOTIDINE 10 MG TABLET PO (09:52)
[2022-11-28] MEDS: CIPROFLOXACIN 500 MG TAB PO ×2 (09:52→20:19)
[2022-11-28] MEDS: FERROUS SULFATE 325 MG TABLET DR PO (09:52)
[2022-11-28] MEDS: PANTOPRAZOLE 40 MG TABLET PO (09:53)
[2022-11-28] MEDS: LOPERAMIDE HCL 2 MG CAPSULE 4 MG PO (10:13)
[2022-11-28] MEDS: TOLNAFTATE 1% POWDER 45 GM BTL 1 APPLIC TOPICAL ×2 (10:18→20:21)
--- NOTE | 2022-11-28 10:57 | PM.IMPN ---
Progress Note: A&P Assessment and Plan (1) Acute lower UTI: Code(s): N39.0 - Urinary tract infection, site not specified Status: Acute (2) Generalized weakness: Code(s): R53.1 - Weakness Status: Acute (3) Malignant neoplasm of overlapping sites of bladder: Code(s): C67.8 - Malignant neoplasm of overlapping sites of bladder Status: Acute (4) Hydronephrosis: Code(s): N13.30 - Unspecified hydronephrosis Status: Acute (5) Hypokalemia: Code(s): E87.6 - Hypokalemia Status: Acute (6) Bladder cancer: Code(s): C67.9 - Malignant neoplasm of bladder, unspecified Status: Acute (7) History of bladder cancer: Code(s): Z85.51 - Personal history of malignant neoplasm of bladder Status: Acute (8) Fecal impaction: Code(s): K56.41 - Fecal impaction Status: Acute (9) Constipation: Qualifiers: Constipation type: unspecified constipation type Qualified Code(s): K59.00 - Constipation, unspecified Code(s): K59.00 - Constipation, unspecified Status: Acute (10) Anemia: Qualifiers: Anemia type: other cause Other causes of anemia: chronic disease, neoplastic Qualified Code(s): D63.0 - Anemia in neoplastic disease Code(s): D64.9 - Anemia, unspecified Status: Acute (11) Stercoral colitis: Code(s): K52.89 - Other specified noninfective gastroenteritis and colitis Status: Acute (12) B12 deficiency: Code(s): E53.8 - Deficiency of other specified B group vitamins Status: Acute (13) Abdominal pain: Code(s): R10.9 - Unspecified abdominal pain Status: Acute (14) Acute blood loss anemia: Code(s): D62 - Acute posthemorrhagic anemia Status: Acute Plan 1) UTI w/o sepsis - failed outpatient abx. urine culture from ED visit on 11/10 reveal MRSA, unclear if that was from indwelling carrera cath or nephrostomy tube. vancomycin started on admission. on 11/22, ciprofloxacin also added due to increasing white count. repeat urine cultures on 11/23 drawn but it is not clear by the labels which urine is from the indwelling carrera cath and which is from the urostomy. one of them is growing pseudomonas. in any case, will consult urology. consider ID consult if worsens, pt is not toxic appearing currently. redraw urine cultures, i have specified one to be catheterized urine and one to be from each urostomy - has pseudomonas in urine cx, sensitive to cipro, con't until 12/06 - vanc 11/20-11/26 stopped 2) hyponatremia - chronic, con't daily BMP - a serious issue related to chronic dehydration. she needs massive fluid resuscitation - con't fluids - improved on 11/28, WNL 3) hypokalemia - replace and recheck - replete with IV K - needs more IV K. keeps losing it in diarrhea 4) hypocalcemia - needs massive IV calcium resuscitation. starting with 2g Ca Gluconate - needs more Ca. ct repletion. 5) hypomagnesemia - resolved on 11/22 6) a fib - rate controlled - continue coreg and eliquis 7. 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 metastatic disease on chest ct - oncology seen and to follow up post discharge when colitis resolves ordered beta hcg, afp, cea, ca19-9, ca125 tumor markers - pending results Dispo: stable Subjective Date/time seen: 11/28/22 10:57 Interval history: Patient feeling a little better today, tolerating food and drink but still diarrhea. does feel a little tired and weak. She was sitting up in chair, PT and OT seeing her this morning. Electrolytes improving, chronic protein deficiency. Review of Systems Review of Systems: n/a All systems reviewed & are unremarkable except as noted in HPI and below Exam Narrative: Const:?? General: comfortab le, no
--- NOTE | 2022-11-28 11:55 | PC.NURSE ---
On 11/28/22, the student, [Elba Romero ], provided care and completed [facility] documentation on this patient. I have reviewed the student's documentation and agree with the findings.
[2022-11-28] MEDS: ONDANSETRON INJ 4 MG/2 ML VIAL IV PUSH (20:19)
[2022-11-28] MEDS: oxyCODONE HCL (*CRX) 5 MG TAB IR PO (20:20)
[2022-11-29] MEDS: SODIUM CHLORIDE 0.9% IV 1,000 ML 100 ML IV CONT ×2 (01:30→16:23)
[2022-11-29 06:00] VITALS: BP 139/65; PULSE 68; RESP 16; TEMP 36.1; O2SAT 98
[2022-11-29 06:44] LABS: Alanine Aminotransferase 10 U/L (6-35); Albumin Level 1.7 g/dL (3.5-5.1); Alkaline Phosphatase 82 U/L (38-126); Anion Gap 3 mmol/L (8-16); Aspartate Amino Transferase 14 U/L (14-36); Bilirubin,Total 0.3 mg/dL (0.2-1.3); Blood Urea Nitrogen 6 mg/dL (7-17); Calcium 7.2 mg/dL (8.4-10.2); Carbon Dioxide 18 mmol/L (22-30); Chloride 110 mmol/L (98-107); Estimated CRCL calculation 64 ml/min; Estimated Glomerular Filt Rate > 60; Glucose 82 mg/dL (65-110); Potassium 3.1 mmol/L (3.4-5.0); Sodium 131 mmol/L (137-145)
[2022-11-29 09:51] VITALS: BP 147/79; PULSE 86; RESP 14
[2022-11-29 09:53] VITALS: PULSE 86
[2022-11-29] MEDS: ESCITALOPRAM OXALATE 10 MG TABLET PO (09:53)
[2022-11-29] MEDS: FAMOTIDINE 10 MG TABLET PO (09:53)
[2022-11-29] MEDS: APIXABAN 5 MG TABLET PO ×2 (09:53→21:15)
[2022-11-29] MEDS: FERROUS SULFATE 325 MG TABLET DR PO (09:53)
[2022-11-29] MEDS: PANTOPRAZOLE 40 MG TABLET PO (09:53)
[2022-11-29] MEDS: carvediloL 3.125 MG TABLET PO ×2 (09:53→21:15)
[2022-11-29] MEDS: CIPROFLOXACIN 500 MG TAB PO ×2 (09:53→21:16)
[2022-11-29] MEDS: TOLNAFTATE 1% POWDER 45 GM BTL 1 APPLIC TOPICAL ×2 (09:54→21:00)
[2022-11-29] MEDS: POTASSIUM CHLORIDE INJ 40 MEQ in SODIUM CHLORIDE 0.9% IV 500 ML 130 MEQ IVPB (09:54)
[2022-11-29] MEDS: ONDANSETRON INJ 4 MG/2 ML VIAL IV PUSH (09:58)
--- NOTE | 2022-11-29 10:36 | PM.IMPN ---
Progress Note: A&P Assessment and Plan (1) Acute lower UTI: Code(s): N39.0 - Urinary tract infection, site not specified Status: Acute (2) Generalized weakness: Code(s): R53.1 - Weakness Status: Acute (3) Malignant neoplasm of overlapping sites of bladder: Code(s): C67.8 - Malignant neoplasm of overlapping sites of bladder Status: Acute (4) Hydronephrosis: Code(s): N13.30 - Unspecified hydronephrosis Status: Acute (5) Hypokalemia: Code(s): E87.6 - Hypokalemia Status: Acute (6) Bladder cancer: Code(s): C67.9 - Malignant neoplasm of bladder, unspecified Status: Acute (7) History of bladder cancer: Code(s): Z85.51 - Personal history of malignant neoplasm of bladder Status: Acute (8) Fecal impaction: Code(s): K56.41 - Fecal impaction Status: Acute (9) Constipation: Qualifiers: Constipation type: unspecified constipation type Qualified Code(s): K59.00 - Constipation, unspecified Code(s): K59.00 - Constipation, unspecified Status: Acute (10) Anemia: Qualifiers: Anemia type: other cause Other causes of anemia: chronic disease, neoplastic Qualified Code(s): D63.0 - Anemia in neoplastic disease Code(s): D64.9 - Anemia, unspecified Status: Acute (11) Stercoral colitis: Code(s): K52.89 - Other specified noninfective gastroenteritis and colitis Status: Acute (12) B12 deficiency: Code(s): E53.8 - Deficiency of other specified B group vitamins Status: Acute (13) Abdominal pain: Code(s): R10.9 - Unspecified abdominal pain Status: Acute (14) Acute blood loss anemia: Code(s): D62 - Acute posthemorrhagic anemia Status: Acute Plan 1) UTI w/o sepsis - failed outpatient abx. urine culture from ED visit on 11/10 reveal MRSA, unclear if that was from indwelling carrera cath or nephrostomy tube. vancomycin started on admission. on 11/22, ciprofloxacin also added due to increasing white count. - urology consulted. consider ID consult if worsens - has pseudomonas in urine cx, sensitive to cipro, con't until 12/06 - vanc 11/20-11/26 stopped 2) hyponatremia - chronic, con't daily BMP - a serious issue related to chronic dehydration. she needs massive fluid resuscitation - con't fluids - 11/29, down to 131 3) hypokalemia - replace and recheck daily with BMP - requires IV K. likely depleting in diarrhea 4) hypocalcemia - needs relpletion IV, retreating with 2g Ca Gluconate - will con't to monitor on daily BMP 5) hypomagnesemia - resolved on 11/22 6) a fib - rate controlled - continue coreg and eliquis 7. 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 metastatic disease on chest ct - oncology seen and to follow up post discharge when colitis resolves ordered beta hcg, afp, cea, ca19-9, ca125 tumor markers - pending results Dispo: stable Subjective Date/time seen: 11/29/22 10:36 Interval history: Patient feeling tired and weak today. She is slightly emotional at the bedside because she is tired of feeling ill. She did get better sleep last night. Tolerating food and drink but still having diarrhea. Denies stomach pain or new symptoms. Electrolytes down again this morning, chronic protein deficiency. Discussed we will continue fluids and give more potassium in her IV today. Review of Systems Review of Systems: n/a All systems reviewed & are unremarkable except as noted in HPI and below Exam Narrative: Const:?? General: comfortab le, no acute distr ess. A&O x3. Sligh tly apathetic, but pleasant Resp:?? Effort & Inspectio n: normal respirat
--- NOTE | 2022-11-29 11:20 | PCPTNOTE ---
Attempted to see patient for PT, however patient was getting on commode with nursing and would like therapy to come back later after she is done.
[2022-11-29] MEDS: oxyCODONE HCL (*CRX) 5 MG TAB IR PO (12:38)
[2022-11-29 14:00] VITALS: BP 133/65; PULSE 64; RESP 16; TEMP 36.2; O2SAT 97
[2022-11-29 14:17] LABS: Basophils Percent Auto 0.5 % (0.2-1.2); Eosinophils Absolute Auto 0.2 K/mm3 (0-0.3); Eosinophils Percent Auto 2.7 % (0-4.4); Hematocrit 31.9 % (37.0-47.0); Hemoglobin 9.6 g/dL (12.0-15.0); Immature Granulocyte Percent A 1.2 % (0-0.5); Lymphocytes Absolute Auto 0.23 K/mm3 (0.9-3.2); Lymphocytes Percent Auto 2.8 % (18.3-44.2); Mean Corpuscular HGB Conc 30.1 g/dl (32-36); Mean Corpuscular Hemoglobin 26.7 pg (26-34); Mean Corpuscular Volume 88.9 fl (80-100); Monocytes Absolute Auto 0.6 K/mm3 (0.1-0.6); Monocytes Percent Auto 7.7 % (2.6-8.5); Neutrophils Absolute Auto 6.9 K/mm3 (1.3-6.7); Neutrophils Percent Auto 85.1 % (45.5-73.1); Platelet Count Result 237 k/mm3 (150-375); Red Blood Count 3.59 M/mm3 (4.2-5.4); Red Cell Distribution Width 22.3 % (11.5-14.5); White Blood Count 8.2 K/mm3 (4.5-10.0)
[2022-11-29] MEDS: CALCIUM GLUC 2,000 MG/NS 100ML 2,000 MG/100 ML BAG 100 MG IVPB (15:21)
[2022-11-29 16:28] LABS: Potassium 3.5 mmol/L (3.4-5.0)
[2022-11-29 20:54] LABS: CA 19-9 14 U/mL (<34)
[2022-11-29 21:15] VITALS: PULSE 70
[2022-11-29] MEDS: LOPERAMIDE HCL 2 MG CAPSULE 4 MG PO (21:15)
[2022-11-29 21:30] VITALS: BP 155/77; PULSE 74; RESP 12; TEMP 36.8; O2SAT 93
[2022-11-30 03:24] LABS: CA-125 109 U/mL (<35)
[2022-11-30] MEDS: SODIUM CHLORIDE 0.9% IV 1,000 ML 100 ML IV CONT ×3 (04:01→23:10)
[2022-11-30 05:14] VITALS: BP 152/74; PULSE 67; RESP 12; TEMP 36.2; O2SAT 93
[2022-11-30 07:04] LABS: Anion Gap 0 mmol/L (8-16); Blood Urea Nitrogen 6 mg/dL (7-17); Calcium 7.5 mg/dL (8.4-10.2); Carbon Dioxide 22 mmol/L (22-30); Chloride 109 mmol/L (98-107); Estimated CRCL calculation 64 ml/min; Estimated Glomerular Filt Rate > 60; Glucose 83 mg/dL (65-110); Potassium 3.3 mmol/L (3.4-5.0); Sodium 131 mmol/L (137-145)
[2022-11-30 08:06] VITALS: PULSE 75
[2022-11-30] MEDS: carvediloL 3.125 MG TABLET PO ×2 (08:06→20:00)
[2022-11-30] MEDS: FERROUS SULFATE 325 MG TABLET DR PO (08:07)
[2022-11-30] MEDS: TOLNAFTATE 1% POWDER 45 GM BTL 1 APPLIC TOPICAL ×2 (08:07→20:02)
[2022-11-30] MEDS: PANTOPRAZOLE 40 MG TABLET PO (08:07)
[2022-11-30] MEDS: ESCITALOPRAM OXALATE 10 MG TABLET PO (08:07)
[2022-11-30] MEDS: FAMOTIDINE 10 MG TABLET PO (08:07)
[2022-11-30] MEDS: CIPROFLOXACIN 500 MG TAB PO ×2 (08:07→20:00)
[2022-11-30] MEDS: APIXABAN 5 MG TABLET PO ×2 (08:07→20:00)
[2022-11-30] MEDS: POTASSIUM CHLORIDE 20 MEQ ER TABLET 40 MEQ PO ×2 (09:03→17:56)
[2022-11-30] MEDS: MAGNESIUM SULF 2 GM/WATER 50ML 2 GM/50 ML BAG IVPB (09:04)
[2022-11-30] MEDS: ONDANSETRON INJ 4 MG/2 ML VIAL IV PUSH (09:08)
--- NOTE | 2022-11-30 09:35 | PM.IMPN ---
Progress Note: A&P Assessment and Plan (1) Acute lower UTI: Code(s): N39.0 - Urinary tract infection, site not specified Status: Acute (2) Generalized weakness: Code(s): R53.1 - Weakness Status: Acute (3) Malignant neoplasm of overlapping sites of bladder: Code(s): C67.8 - Malignant neoplasm of overlapping sites of bladder Status: Acute (4) Hydronephrosis: Code(s): N13.30 - Unspecified hydronephrosis Status: Acute (5) Hypokalemia: Code(s): E87.6 - Hypokalemia Status: Acute Plan 1) UTI w/o sepsis - failed outpatient abx. urine culture from ED visit on 11/10 reveal MRSA, unclear if that was from indwelling carrera cath or nephrostomy tube. vancomycin started on admission. on 11/22, ciprofloxacin also added due to increasing white count. - urology consulted. consider ID consult if worsens - has pseudomonas in urine cx, sensitive to cipro, con't until 12/06 - vanc 11/20-11/26 stopped 2) hyponatremia - chronic, con't daily BMP - a serious issue related to chronic dehydration. she needs massive fluid resuscitation - con't fluids - 11/30, 131 - will likely remain low due to cancer. 3) hypokalemia - replacing with 40 meq PO BID today, will recheck in pm - replace and recheck daily with BMP 4) hypocalcemia - Ca gluc given 11/29 - will con't to monitor on daily BMP 5) hypomagnesemia -magnesium 2 g given 11/30, will recheck in pm - previously resolved on 11/22 6) a fib - rate controlled - continue coreg and eliquis 7. 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 metastatic disease on chest ct - oncology seen and to follow up post discharge when colitis resolves ordered beta hcg, afp, cea, ca19-9, ca125 tumor markers - pending results Dispo: stable Subjective Date/time seen: 11/30/22 09:35 Interval history: Patient continues feeling tired and weak. Tolerating food and drink but still having diarrhea. Denies mucus or blood in stool. Reporting some nausea this morning after taking her morning pills on empty stomach prior to breakfast. Encouraged her to wait until she has eaten to take potassium. Denies stomach pain or new symptoms. Electrolytes down again this morning, chronic protein deficiency. Discussed we will continue fluids and try to get her magnesium and potassium to stabilize so that she can go home. Patient tolerated her PO potassium, discussed sending home on this as we are fighting a arevalo of needing to replete her electrolytes lost through her diarrhea. Review of Systems Review of Systems: n/a All systems reviewed & are unremarkable except as noted in HPI and below Exam Narrative: Const:?? General: comfortab le, no acute distr ess. A&O x3. Sligh tly apathetic, but pleasant Resp:?? Effort & Inspectio n: normal respirat ory effort? Auscul tation: clear to a uscultation bilate rally Cardio:?? RRR GI:?? Inspection: non-di stended? Auscultat ion: normal bowel sounds Extrem:?? General: no edema; skin appears very dry in feet. Slig htly pale in appea tony. Objective Data Vital Signs Vital Signs: Vital Signs - 24 hr 11/29/22 09:51 11/29/22 09:53 11/29/22 09:53 Temperature Pulse Rate 86 86 Respiratory Rate 14 Blood Pressure 147/79 H Pulse Oximetry Oxygen Delivery Room Air 11/29/22 14:00 11/29/22 21:15 11/29/22 21:30 Temperature 97.2 F L 98.3 F Pulse Rate 64 70 74 Respiratory Rate 16 12 Blood
[2022-11-30 12:28] LABS: Magnesium 1.4 mg/dL (1.6-2.3)
--- NOTE | 2022-11-30 13:18 | PC.NURSE ---
Pt's daughter called with questions specifically regarding discharge, at home care, and cancer diagnosis among other things. I directed her to speak with the oncologist and explained that I would have care coordination contact her as well.
[2022-11-30 14:00] VITALS: BP 148/73; PULSE 70; RESP 16; TEMP 36.5; O2SAT 96
[2022-11-30 20:00] VITALS: PULSE 84; RESP 16; O2SAT 96
[2022-11-30] MEDS: oxyCODONE HCL (*CRX) 5 MG TAB IR PO (20:01)
[2022-11-30 21:06] VITALS: BP 140/73; PULSE 83; RESP 12; TEMP 36.4; O2SAT 95
[2022-12-01 05:16] VITALS: BP 172/78; PULSE 69; RESP 13; TEMP 36.2; O2SAT 96
[2022-12-01] MEDS: oxyCODONE HCL (*CRX) 5 MG TAB IR PO (05:20)
[2022-12-01 06:30] VITALS: BP 138/62
[2022-12-01 07:53] LABS: Hematocrit 30.5 % (37.0-47.0); Hemoglobin 9.6 g/dL (12.0-15.0); Mean Corpuscular HGB Conc 31.5 g/dl (32-36); Mean Corpuscular Hemoglobin 26.9 pg (26-34); Mean Corpuscular Volume 85.4 fl (80-100); Mean Platelet Volume 8.3 fl (7.4-10.4); Platelet Count Result 207 k/mm3 (150-375); Red Blood Count 3.57 M/mm3 (4.2-5.4); Red Cell Distribution Width 22.1 % (11.5-14.5); White Blood Count 7.6 K/mm3 (4.5-10.0)
[2022-12-01 08:06] LABS: Anion Gap 1 mmol/L (8-16); Blood Urea Nitrogen 5 mg/dL (7-17); Calcium 7.3 mg/dL (8.4-10.2); Carbon Dioxide 23 mmol/L (22-30); Chloride 108 mmol/L (98-107); Estimated CRCL calculation 64 ml/min; Estimated Glomerular Filt Rate > 60; Glucose 77 mg/dL (65-110); Magnesium 1.6 mg/dL (1.6-2.3); Potassium 3.6 mmol/L (3.4-5.0); Sodium 132 mmol/L (137-145)
--- NOTE | 2022-12-01 08:37 | P.PNIM_ITS ---
Progress Note: A&P Assessment and Plan (1) Acute lower UTI: Code(s): N39.0 - Urinary tract infection, site not specified Status: Acute Assessment and Plan: 11/30/22: * failed outpatient abx. urine culture from ED visit on 11/10 reveal MRSA, unclear if that was from indwelling carrera cath or nephrostomy tube. vancomycin started on admission. on 11/22, ciprofloxacin also added due to increasing white count. * - urology consulted. consider ID consult if worsens * - has pseudomonas in urine cx, sensitive to cipro, con't until 12/06 * - vanc 11/20-11/26 stopped 12/01/22: * Continue Cipro 500 mg twice a day for total of 21 doses,currently she is on day 12/01 * Urology following patient (2) Generalized weakness: Code(s): R53.1 - Weakness Status: Acute Assessment and Plan: 12/01/22: * PT and OT ordered, patient ambulated once today so far with physical therapy in the [place] * Patient continues to look very tired and weak, she states that she had a very rough night and is not ready to go home yet. * Will re-evaluate her in the morning for discharge (3) Malignant neoplasm of overlapping sites of bladder: Code(s): C67.8 - Malignant neoplasm of overlapping sites of bladder Status: Chronic Assessment and Plan: 11/30/22: * - chronic, con't daily BMP * - a serious issue related to chronic dehydration. she needs massive fluid resuscitation * - con't fluids * - NA 131 - will likely remain low due to cancer. 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 * Continue with IV fluids. * Sodium 132, chloride 108, potassium 3.6, calcium 7.3, Mag 1.6. No replacement needed today. * Tumor markers are still pending. * Oncology following patient (4) Hydronephrosis: Code(s): N13.30 - Unspecified hydronephrosis Status: Chronic Assessment and Plan: 12/01/22: * Bilateral nephrostomy tubes in place * Carrera catheter in place * Oncology following patient, see above (5) Hypokalemia: Code(s): E87.6 - Hypokalemia Status: Acute Assessment and Plan: 11/30/22: * replacing with 40 meq PO BID today, will recheck in pm * - replace and recheck daily with BMP 12/01/22: * Potassium 3.6 today, no need for replacement * Continue to trend labs Time Spent With Patient Time with patient: Greater than 35 minutes Subjective Date/time seen: 12/01/22 08:37 Interval history: Interval history: This is an 82-year-old female presented to the ED on 11/20/2022 for evaluation weakness related to persistent nausea, vomiting, and diarrhea. She has reported initially that she has had poor appetite and poor oral intake. She has a significant past medical history bladder cancer and hypertension. Work up during her admission included a chest x-ray which showed no acute cardiopulmonary disease however there was multiple pulmonary nodules concerning for metastatic disease. She also had a renal ultrasound done which showed severe wall thickening consistent with urothelial carcinoma. A respiratory panel was don
--- NOTE | 2022-12-01 08:37 | PM.IMPN ---
Progress Note: A&P Assessment and Plan (1) Acute lower UTI: Code(s): N39.0 - Urinary tract infection, site not specified Status: Acute Assessment and Plan: 11/30/22: failed outpatient abx. urine culture from ED visit on 11/10 reveal MRSA, unclear if that was from indwelling carrera cath or nephrostomy tube. vancomycin started on admission. on 11/22, ciprofloxacin also added due to increasing white count. - urology consulted. consider ID consult if worsens - has pseudomonas in urine cx, sensitive to cipro, con't until 12/06 - vanc 11/20-11/26 stopped 12/01/22: Continue Cipro 500 mg twice a day for total of 21 doses,currently she is on day 12/01 Urology following patient (2) Generalized weakness: Code(s): R53.1 - Weakness Status: Acute Assessment and Plan: 12/01/22: PT and OT ordered, patient ambulated once today so far with physical therapy in [place] Patient continues to look very tired and weak, she states that she had a very rough night and is not ready to go home yet. Will re-evaluate her in the morning for discharge (3) Malignant neoplasm of overlapping sites of bladder: Code(s): C67.8 - Malignant neoplasm of overlapping sites of bladder Status: Chronic Assessment and Plan: 11/30/22: - chronic, con't daily BMP - a serious issue related to chronic dehydration. she needs massive fluid resuscitation - con't fluids - NA 131 - will likely remain low due to cancer. 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 Continue with IV fluids. Sodium 132, chloride 108, potassium 3.6, calcium 7.3, Mag 1.6. No replacement needed today. Tumor markers are still pending. Oncology following patient (4) Hydronephrosis: Code(s): N13.30 - Unspecified hydronephrosis Status: Chronic Assessment and Plan: 12/01/22: Bilateral nephrostomy tubes in place Carrera catheter in place Oncology following patient, see above (5) Hypokalemia: Code(s): E87.6 - Hypokalemia Status: Acute Assessment and Plan: 11/30/22: replacing with 40 meq PO BID today, will recheck in pm - replace and recheck daily with BMP 12/01/22: Potassium 3.6 today, no need for replacement Continue to trend labs Time Spent With Patient Time with patient: Greater than 35 minutes Subjective Date/time seen: 12/01/22 08:37 Interval history: Interval history: This is an 82-year-old female presented to the ED on 11/20/2022 for evaluation weakness related to persistent nausea, vomiting, and diarrhea. She has reported initially that she has had poor appetite and poor oral intake. She has a significant past medical history bladder cancer and hypertension. Work up during her admission included a chest x-ray which showed no acute cardiopulmonary disease however there was multiple pulmonary nodules concerning for metastatic disease. She also had a renal ultrasound done which showed severe wall thickening consistent with urothelial carcinoma. A respiratory panel was done on her which was negative. She had a stool culture which was negative. A urinalysis was also performed which showed 1+ protein, positive nitrates, 3+ leukocytes, 4+ bacteria. Urine culture was showing Pseudomonas aeruginosa however she has had multiple urine cultures showing improvement with the most recent being negative. Patient currently on Cipro for treatment of her urinary tract infection. 11/30/22: Patient continues feel
[2022-12-01] MEDS: PANTOPRAZOLE 40 MG TABLET PO (09:16)
[2022-12-01 09:17] VITALS: PULSE 69
[2022-12-01] MEDS: POTASSIUM CHLORIDE 20 MEQ ER TABLET 40 MEQ PO ×2 (09:17→17:14)
[2022-12-01] MEDS: FERROUS SULFATE 325 MG TABLET DR PO (09:17)
[2022-12-01] MEDS: carvediloL 3.125 MG TABLET PO ×2 (09:17→20:46)
[2022-12-01] MEDS: FAMOTIDINE 10 MG TABLET PO (09:17)
[2022-12-01] MEDS: APIXABAN 5 MG TABLET PO ×2 (09:17→20:47)
[2022-12-01] MEDS: ESCITALOPRAM OXALATE 10 MG TABLET PO (09:17)
[2022-12-01] MEDS: TOLNAFTATE 1% POWDER 45 GM BTL 1 APPLIC TOPICAL ×2 (09:18→22:52)
[2022-12-01] MEDS: CIPROFLOXACIN 500 MG TAB PO ×2 (09:18→20:47)
[2022-12-01] MEDS: ONDANSETRON INJ 4 MG/2 ML VIAL IV PUSH (10:29)
[2022-12-01] MEDS: SODIUM CHLORIDE 0.9% IV 1,000 ML 100 ML IV CONT ×2 (10:37→20:46)
[2022-12-01 14:00] VITALS: BP 143/63; PULSE 70; RESP 14; TEMP 36.6; O2SAT 91
[2022-12-01 21:15] VITALS: BP 155/86; PULSE 73; RESP 16; TEMP 36.5; O2SAT 92
[2022-12-02 06:00] VITALS: BP 152/83; PULSE 77; RESP 18; TEMP 36.4; O2SAT 95
[2022-12-02 06:29] LABS: Basophils Percent Auto 0.3 % (0.2-1.2); Eosinophils Absolute Auto 0.2 K/mm3 (0-0.3); Eosinophils Percent Auto 2.1 % (0-4.4); Hematocrit 31.3 % (37.0-47.0); Immature Granulocyte Absolute 0.06 K/mm3 (0.00-0.031); Immature Granulocyte Percent A 0.9 % (0-0.5); Lymphocytes Absolute Auto 0.25 K/mm3 (0.9-3.2); Lymphocytes Percent Auto 3.6 % (18.3-44.2); Mean Corpuscular HGB Conc 31.9 g/dl (32-36); Mean Corpuscular Hemoglobin 26.9 pg (26-34); Mean Corpuscular Volume 84.1 fl (80-100); Mean Platelet Volume 8.3 fl (7.4-10.4); Monocytes Absolute Auto 0.5 K/mm3 (0.1-0.6); Neutrophils Absolute Auto 6.1 K/mm3 (1.3-6.7); Neutrophils Percent Auto 86.1 % (45.5-73.1); Platelet Count Result 221 k/mm3 (150-375); Red Blood Count 3.72 M/mm3 (4.2-5.4); Red Cell Distribution Width 22.3 % (11.5-14.5)
[2022-12-02 06:53] LABS: Anisocytosis 2+ (NORMAL); Burr Cells 1+ (NORMAL); Platelet Estimate Adequate (Adequate); Schistocytes None Seen (NORMAL)
[2022-12-02 07:00] LABS: Alanine Aminotransferase 10 U/L (6-35); Albumin Level 1.7 g/dL (3.5-5.1); Alkaline Phosphatase 87 U/L (38-126); Anion Gap 1 mmol/L (8-16); Aspartate Amino Transferase 21 U/L (14-36); Bilirubin,Total 0.3 mg/dL (0.2-1.3); Blood Urea Nitrogen 5 mg/dL (7-17); Calcium 7.5 mg/dL (8.4-10.2); Carbon Dioxide 23 mmol/L (22-30); Chloride 108 mmol/L (98-107); Estimated CRCL calculation 75 ml/min; Estimated Glomerular Filt Rate > 60; Glucose 77 mg/dL (65-110); Potassium 3.9 mmol/L (3.4-5.0); Sodium 132 mmol/L (137-145)
[2022-12-02] MEDS: SODIUM CHLORIDE 0.9% IV 1,000 ML 100 ML IV CONT (07:32)
[2022-12-02] MEDS: ONDANSETRON INJ 4 MG/2 ML VIAL IV PUSH (08:25)
--- NOTE | 2022-12-02 10:07 | PM.DS ---
DS: Admitting Diagnosis Discharge Date 12/02/22 Admitting Diagnosis urinary tract infection generalized weakness malignant neoplasm of overlapping sites of bladder DS: Discharge Diagnosis Discharge Diagnosis (1) Acute lower UTI: Code(s): N39.0 - Urinary tract infection, site not specified Status: Acute (2) Generalized weakness: Code(s): R53.1 - Weakness Status: Acute (3) Malignant neoplasm of overlapping sites of bladder: Code(s): C67.8 - Malignant neoplasm of overlapping sites of bladder Status: Chronic (4) Hydronephrosis: Code(s): N13.30 - Unspecified hydronephrosis Status: Chronic (5) Hypokalemia: Code(s): E87.6 - Hypokalemia Status: Acute DS: Summary Hospital Course Reason for hospitalization: urinary tract infection Hospital Course: This is an 82-year-old female who presented to the ED on 11/20/2022 for evaluation of weakness related to persistent nausea, vomiting, and diarrhea. She also reported that she had poor appetite and poor oral intake. She has a significant past medical history of bladder cancer and hypertension. hospital workup included a chest x-ray which showed no acute cardiopulmonary disease however there are multiple pulmonary nodules concerning for metastatic disease. She also had a renal ultrasound done which shown severe wall thickening consistent with urothelial carcinoma. A respiratory panel was done and was negative. She also had stool culture which was negative. A urinalysis was also performed which showed 1+ protein, positive nitrates, 3+ leukocytes, 4+ bacteria. Urine culture was obtained and was showing Pseudomonas aeruginosa however she has had multiple urine culture showing improvement this admission. Patient currently on Cipro 500 mg twice a day and she will take for a total of 21 days. On examination today patient is alert and oriented x4, vital signs are stable, patient remained afebrile, and she remains on room air. Labs today revealed white blood cell count is 7.0, hemoglobin 10.0, hematocrit 31.3, sodium 132, potassium 3.9, chloride 108, BUN 5, creatinine 0.5, calcium 7.5, albumin 1.7, liver enzymes were normal. Patient had a restful night and denies any new complaints this morning. She is stable for discharge back to home.She will be sent home with a 10 day course of Cipro to finish out her 21 days. She will need to follow up with her primary care physician and her urologist in 1 week. Status at Discharge Cognitive/behavioral status at discharge: alert oriented x4 Functional status at discharge: uses cane/walker Overall status at discharge: patient is progressing back to baseline Time Spent with Patient Time attestation: Total time spent providing and/or coordinating discharge services: Time spent: Greater than 30 minutes Exam Narrative: ?GENERAL: ? Chronically ill-appearing and in no acute distress. HEAD: Normocephalic, atraumatic. EYES: PERRLA and EOMI. Sclera injected ENT: ? Mucous membranes pink and tacky NECK: Supple. no JVD, no adenopathy, trachea midline CHEST: Clear to auscultation, no adventitious lung sounds.? No respiratory distress. HEART: Regular rate and rhythm. no murmur, gallop, or friction rub noted.? Normal peripheral pulses, 2+/2+ bilaterally. ABDOMEN: Soft, nontender, nondistended.? bilateral nephrostomy tubes in place, appear to be clean and dry, thalia colored urine bilaterally.? She has a Rodriguez catheter in place, it is brown in color. Bowel sounds normal active EXTREMITIES: Normal range of motion.? No edema. SKIN: Warm, dry, no rash. NEURO: No focal deficits.? Alert and oriented x3. PSYCH:? flat affect, normal mood ? Extrem: Right upper extremity: edema DS: Data Data Completed and Pending Completed studies during hospitalization: chest x-ray renal ultrasound Pending studies at discharge: none Labs on day of discharge: Labs from last 24 hours 12/02/22 12/02/22
[2022-12-02] MEDS: FAMOTIDINE 10 MG TABLET PO (10:49)
[2022-12-02] MEDS: PANTOPRAZOLE 40 MG TABLET PO (10:50)
[2022-12-02] MEDS: CIPROFLOXACIN 500 MG TAB PO (10:50)
[2022-12-02] MEDS: ESCITALOPRAM OXALATE 10 MG TABLET PO (10:50)
[2022-12-02 10:51] VITALS: PULSE 88
[2022-12-02] MEDS: carvediloL 3.125 MG TABLET PO (10:51)
[2022-12-02] MEDS: oxyCODONE HCL (*CRX) 5 MG TAB IR PO (10:55)
[2022-12-02] MEDS: TOLNAFTATE 1% POWDER 45 GM BTL 1 APPLIC TOPICAL (10:57)
[2022-12-02] MEDS: APIXABAN 5 MG TABLET PO (10:58)
[2022-12-02 14:43] LABS: HCG Tumor Marker <5 mIU/mL (***)
[2022-12-05 15:21] LABS: Ionized Calcium 4.7 mg/dL (4.7-5.5)
== END 2022-12-02 13:45 | disposition home health service (06) | DRG 698 ==
LOC: ANHED 20:58 → ANH3MEDSUR 21:10
PROVIDERS: General Practice; Internal Medicine; Nurse Practitioner; Admitting Provider Internal Medicine; Emergency Provider Student in an Organized Health Care Education/Training Program; PCP Physician Assistant; Visit Provider Nurse Practitioner Acute Care
DX: T83.511A Infection and inflammatory reaction due to indwelling urethral catheter, initial encounter (principal); E43 Unspecified severe protein-calorie malnutrition; E87.1 Hypo-osmolality and hyponatremia; K52.0 Gastroenteritis and colitis due to radiation; N13.30 Unspecified hydronephrosis; T83.512A Infection and inflammatory reaction due to nephrostomy catheter, initial encounter; N39.0 Urinary tract infection, site not specified; C67.8 Malignant neoplasm of overlapping sites of bladder; B96.5 Pseudomonas (aeruginosa) (mallei) (pseudomallei) as the cause of diseases classified elsewhere; E87.6 Hypokalemia; I10 Essential (primary) hypertension; N31.9 Neuromuscular dysfunction of bladder, unspecified; Z20.822 Contact with and (suspected) exposure to COVID-19; F41.1 Generalized anxiety disorder; E83.51 Hypocalcemia; I48.91 Unspecified atrial fibrillation; E83.42 Hypomagnesemia; E86.0 Dehydration; D63.0 Anemia in neoplastic disease; K56.41 Fecal impaction; E53.8 Deficiency of other specified B group vitamins; R91.8 Other nonspecific abnormal finding of lung field; Z66 Do not resuscitate; Z96.653 Presence of artificial knee joint, bilateral; Z90.710 Acquired absence of both cervix and uterus; Z68.27 Body mass index [BMI] 27.0-27.9, adult
CPT/HCPCS: 36415; 71046; 76775; 80048; 80053; 80202; 81001; 82330; 82378; 82565; 82948; 83735; 84100; 84132; 84145; 84484; 84702; 85025; 85027; 86301; 86304; 87040; 87077; 87086; 87088; 87186; 87493; 87637; 89055; 93005; 97110; 97161; 97165; 97530; 97535; 99285; A9270; J0613; J0696; J0744; J2405; J3370; J3475; J3480; J7030; J7040